=== PATIENT | female | born 1950 | race Caucasian/White ===

== ENCOUNTER 2023-04-10 05:11 | Emergency (ER) | payer MEDICARE, OTHER, SELFPAY ==
[2023-04-10 05:14] VITALS: BP 154/96
[2023-04-10 06:11] VITALS: BP 112/70
--- NOTE | 2023-04-10 06:54 | ED.GENMED ---
History of Present Illness
General
Chief Complaint: Bowel Problem
Source: patient
Exam Limitations: none
Time Seen by Provider: 04/10/23 06:39
Nursing documentation reviewed up to this point in time: agreed with
Travel History
Have you had any contact with someone who has COVID-19?: No
Do you have any symptoms of coronavirus? Fever > 100 degrees, chills, cough, shortness of breath, sore throat, loss of taste or smell, muscle aches, or headache?: No
History of Present Illness
History of Present Illness:
72-year-old female presents emergency department due to constipation of the past 1 to 3 days. This feels similar to when she had constipation before.
Past History
Past History
ED Past Medical History: Hypercholesterolemia, NIDDM and Other
ED Past Surgical History: Appendectomy and Tonsilectomy
Social History
Tobacco: Non-smoker
Alcohol: None
Drug: None
Personal: Single
Living: alone
Employment: Employed
Family History
Family History: Other (Noncontributory)
Review of Systems
Review of Systems
Allergies reviewed?: Yes
All Other Systems: Not applicable
Constitutional: Reports no symptoms
EENT: Reports no symptoms
Respiratory: Reports no symptoms
Cardiac: Reports no symptoms
ABD/GI: Reports constipated
: Reports no symptoms
Musculoskeletal: Reports no symptoms
Skin: Reports no symptoms
Neurological: Reports no symptoms
Endocrine: Reports no symptoms
Hematologic/Lymphatic: Reports no symptoms
Psychiatric: Reports no symptoms
Phy Exam
Physical Exam
Physical Exam:
Physical Exam
General: no apparent distress, not acutely ill
Neck: supple. no meningeal signs. normal posterior pharynx
Heart: s1/s2 regular rate and rhythm, no murmur. equal radial
pulses.
HEENT: Pupils equal round reactive to light, EOMI
Lungs: no acute respiratory distress. clear bilaterally
Abdomen: normal bowel sounds. not tender. no CVAT, rectal exam fecal impaction
Neuro: alert and oriented. no focal neurological deficits
Skin: no rash
Psychiatric: well kept. interactive and cooperative
Extremities: no edema. no calf tenderness. negative homans. good distal pulses
Course
Orders/Labs/Results
Orders:
Orders
04/10/23 07:39
Magnesium Citrate [Citroma] 300 ml PO ONCE ONE
04/10/23 09:03
Acetaminophen [Tylenol] 650 mg .ROUTE .STK-MED ONE
04/10/23 09:05
Acetaminophen [Tylenol] 650 mg PO NOW STA
Vital Signs
Initial and Last Documented VS:
Initial Vital Signs
Temp Pulse Resp BP Pulse Ox
98 F 94 18 154/96 94
04/10/23 05:14 04/10/23 05:14 04/10/23 05:14 04/10/23 05:14 04/10/23 05:14
Last Documented Vital Signs
Temp Pulse Resp BP Pulse Ox
98 F 94 18 138/90 93
04/10/23 05:14 04/10/23 05:14 04/10/23 05:14 04/10/23 08:00 04/10/23 08:00
MDM/Problems Addressed
Differential Diagnosis Includes:
Bowel obstruction, fecal impaction
MDM/Problems Addressed:
72-year-old female with fecal impaction. Improved after disimpaction.
*Pulse Oximetry
Patient hypoxic: no
*EKG
Interpreted by ED Provider?: NA
*Lion Trainer Interpretation
Rate: Lion Trainer- N/A
*Critical Care Note
Total Time (30-74mins, 75-104mins- exclusive of procedures): Not Applicable
Data Reviewed
Further Testing Considered But Not Given:
Abdominal x-ray not indicated
ED Attending Note
-
Portions of this chart may have been created with voice recognition software.� Occasional wrong word or��sound alike� substitutions may have occurred due to the inherent limitations of voice recognition software.
Discharge Plan
Departure
Patient Disposition: Home (Routine Discharge)
Date of Disposition: 04/10/23
Time of Disposition: 09:41
Patient with high blood pressure during this ER visit?: Yes
Condition: Good
Discharge Problem:
Fecal impaction
Instructions: Fecal Impaction (DC), BLOOD PRESSURE
Prescriptions:
No Action
labetalol 200 MG tablet
100 mg PO BID
simvastatin 20 MG tablet
20 mg PO HS
insulin glargine [Lantus Solostar U-100 Insulin] 100 unit/mL (3 mL) Insulin Pen
30 unit SC HS
insulin aspart U-100 [Novolog FlexPen U-100 Insulin] 100 unit/mL (3 mL) Insulin Pen
14 unit SC MEALS
multivitamin Tablet
2 tab PO DAILY
aspirin 81 mg Tablet,Delayed Release (Dr/Ec)
81 mg PO HS
acetaminophen 500 mg Tablet
1,000 mg PO Q6H PRN (Reason: pain)
cefuroxime axetil 500 mg Tablet
500 mg PO BID
Patient Comments:
last day 12/14/22
cholecalciferol (vitamin D3) [Vitamin D3] 25 mcg (1,000 unit) Capsule
50 mcg PO DAILY
coenzyme Q10 [CoQ-10] 100 mg Capsule
200 mg PO DAILY
polyethylene glycol 3350 [Miralax] 17 gram/dose Powder
17 g PO DAILY
fluticasone propionate 50 mcg/actuation [place],Suspension
2 spray INTRANASAL BID
carboxymethylcellulose sodium [Refresh Plus] 0.5 % Dropperette
2 drp BOTH EYES TIDPRN PRN (Reason: dry eyes)
Referrals:
Geri Ramirez MD [Family Provider] - Call in 1-3 days for appt
Interventions
Interventions:
*Risk Screen - Suicide Last Done: 04/10/23 05:14
*General Assessment Last Done: 04/10/23 06:17
*Neglect/Abuse Screening Last Done: 04/10/23 05:14
ED- Fall Risk Assessment Last Done: 04/10/23 06:17
*ED COVID-19 Vaccine History Last Done: 04/10/23 06:17
FT-Rvnsua-Xadcdseubx Assessment Last Done: 04/10/23 06:17
[2023-04-10 07:10] VITALS: BP 145/83
[2023-04-10 08:00] VITALS: BP 138/90
[2023-04-10] MEDS: TYLENOL 650 MG PO (09:05)
[2023-04-10] MEDS: CITROMA 300 ML PO (10:26)
== END 2023-04-10 10:37 | disposition home or self-care (01) ==
LOC: EMR 05:11
PROVIDERS: EMERGENCY PHYSICIAN Emergency Medicine; FAMILY PHYSICIAN Internal Medicine
DX: K56.41 Fecal impaction (principal); E11.9 Type 2 diabetes mellitus without complications
CPT/HCPCS: 99283

== ENCOUNTER 2023-06-26 16:58 | Emergency (ER) | payer MEDICARE, OTHER, SELFPAY ==
[2023-06-26 17:01] VITALS: BP 166/94
[2023-06-26 17:07] LABS: Glucose - Point of Care 147 mg/dl (70-99)
[2023-06-26 17:58] VITALS: BP 150/72
[2023-06-26 18:08] VITALS: BMI 41.9
[2023-06-26 18:20] LABS: % Basophils 0.5 % (0-2); % Eosinophils 0.9 % (0-6); % Immature Granulocytes 0.7 % (0-0.5); % Lymphocytes 11.8 % (20.5-51.1); % Monocytes 8.7 % (1.7-9.3); % Neutrophils 77.4 % (42.2-75.2); Absolute Eosinophils 0.1 10^3/uL (0-0.7); Absolute Immature Granulocytes 0.1 10^3/uL (0-0.05); Absolute Monocytes 0.7 10^3/uL (0.1-0.6); Absolute Neutrophils 6.2 10^3/uL (1.4-6.5); Hematocrit 39.8 % (37.0-47.0); Mean Corp Hgb Conc. 32.7 g/dL (33.0-37.0); Mean Corpuscular Hgb 27.7 pg (27.0-31.0); Mean Corpuscular Volume 84.9 fL (81.0-99.0); Nucleated Red Blood Cells % 0 %; Platelet Count 271 10^3/uL (130-400); Red Blood Cell Count 4.69 10^6/uL (4.20-5.40); Red Cell Dist. Width 14.7 % (11.5-14.5)
--- NOTE | 2023-06-26 18:20 | ED.GENMED ---
History of Present Illness
General
Chief Complaint: Breathing Problem
Source: patient
Exam Limitations: none
Time Seen by Provider: 06/26/23 18:04
Travel History
Have you had any contact with someone who has COVID-19?: No
Do you have any symptoms of coronavirus? Fever > 100 degrees, chills, cough, shortness of breath, sore throat, loss of taste or smell, muscle aches, or headache?: No
History of Present Illness
History of Present Illness:
73-year-old female presents from home where she lives by herself in her apartment with complaints of generalized weakness. She had onset of shortness of breath. She had to crawl to her neighbors to get help. She is quite a difficult historian as
she is just directions of thought quite frequently. She denies headache chest pain shortness of breath. She denies any chills. She does note she thinks may be 2 days ago she had a COVID booster. She denies any swelling of the legs. She is an
insulin-dependent diabetic. She checked her blood sugar at the onset of her symptoms today which was 167.
Past History
Past History
ED Past Medical History: Hypercholesterolemia, NIDDM and Other
ED Past Surgical History: Appendectomy and Tonsilectomy
Social History
Tobacco: Non-smoker
Alcohol: None
Drug: None
Personal: Single
Living: alone
Employment: Employed
Family History
Family History: Other (Noncontributory)
Phy Exam
Physical Exam
Physical Exam:
General: Well-appearing female no acute respiratory distress
HEENT: Normocephalic atraumatic
Heart: Regular rate and rhythm no murmurs
Lungs: Clear to auscultation bilaterally no wheezing
Abdomen is soft nontender nondistended no guarding rebound normal bowel sounds
Extremities: No cyanosis or edema
Skin: Warm no rash
Neurologic: Alert and oriented x 3 no facial asymmetry or slurred
Scores
Heart Failure Risk
Heart Failure Risk Score: Not Applicable
Course
Orders/Labs/Results
Orders:
Orders
06/26/23 18:06
Complete Blood Count/With Diff Urgent
Comprehensive Metabolic Panel Urgent
06/26/23 18:19
CR Chest - 2 Views Urgent
Comment:
Reason For Exam: trouble breathing
06/26/23 18:29
COVID-19 Antigen Urgent
Source: Nasal Swab
06/26/23 19:24
Urinalysis Reflex To Culture Urgent
Date Specimen was Collected: 06/26/23
Time Specimen was Collected: 19:23
Urine Microscopic Reflex Cult Urgent
Abnormal Lab Results
06/26/23 06/26/23 06/26/23
17:04 18:06 19:24
MCHC 32.7 L g/dL
(33.0-37.0)
RDW 14.7 H %
(11.5-14.5)
Abs Immat Gran (auto) 0.1 H 10^3/uL
(0-0.05)
Absolute Lymphs (auto) 1.0 L 10^3/uL
(1.2-3.4)
Absolute Monos (auto) 0.7 H 10^3/uL
(0.1-0.6)
Immature Gran % 0.7 H %
(0-0.5)
Neutrophils % 77.4 H %
(42.2-75.2)
Lymphocytes % 11.8 L %
(20.5-51.1)
BUN 27 H mg/dl
(7-17)
Glucose 137 H mg/dl
(70-99)
Leukocyte Esterase Rfl Trace A
(Negative)
Urine Bacteria (Reflex) Few A
(Negative)
POC Glucose 147 H mg/dl
(70-99)
06/26/23 18:06
06/26/23 18:06
Vital Signs
Initial and Last Documented VS:
Initial Vital Signs
Temp Pulse Resp BP Pulse Ox
100.0 F 100 22 166/94 93
06/26/23 17:01 06/26/23 17:01 06/26/23 17:01 06/26/23 17:01 06/26/23 17:01
Last Documented Vital Signs
Temp Pulse Resp BP Pulse Ox
100.0 F 99 17 123/65 92
06/26/23 17:01 06/26/23 19:25 06/26/23 19:25 06/26/23 20:26 06/26/23 19:21
MDM/Problems Addressed
Differential Diagnosis Includes:
Hip pain generalized weakness, episode of difficulty breathing. Temperature upon arrival here is 100.0. Fingerstick blood sugar okay. Will check chest x-ray COVID test and UA. Labs pending.
*Critical Care Note
Total Time (30-74mins, 75-104mins- exclusive of procedures): Not Applicable
Update Note
Update Note:
Patient presented with generalized weakness episode but now is back to baseline. She is alert she is ambulated to the bathroom. Labs reviewed without significant finding urinalysis negative COVID and chest x-ray negative. Patient did have COVID
booster 2 days ago this could be an immune response to the COVID booster. Recommended rest and hydration. Stable for discharge
ED Attending Note
-
Portions of this chart may have been created with voice recognition software.� Occasional wrong word or��sound alike� substitutions may have occurred due to the inherent limitations of voice recognition software.
Discharge Plan
Departure
Patient Disposition: Home (Routine Discharge)
Date of Disposition: 06/26/23
Time of Disposition: 20:51
Patient with high blood pressure during this ER visit?: No
Discharge Problem:
Weakness
Instructions: Shortness of Breath (Dyspnea) (DC)
Prescriptions:
No Action
labetalol 200 MG tablet
100 mg PO BID
simvastatin 20 MG tablet
20 mg PO HS
insulin glargine [Lantus Solostar U-100 Insulin] 100 unit/mL (3 mL) Insulin Pen
30 unit SC HS
insulin aspart U-100 [Novolog FlexPen U-100 Insulin] 100 unit/mL (3 mL) Insulin Pen
14 unit SC MEALS
multivitamin Tablet
2 tab PO DAILY
aspirin 81 mg Tablet,Delayed Release (Dr/Ec)
81 mg PO HS
acetaminophen 500 mg Tablet
1,000 mg PO Q6H PRN (Reason: pain)
cefuroxime axetil 500 mg Tablet
500 mg PO BID
Patient Comments:
last day 12/14/22
cholecalciferol (vitamin D3) [Vitamin D3] 25 mcg (1,000 unit) Capsule
50 mcg PO DAILY
coenzyme Q10 [CoQ-10] 100 mg Capsule
200 mg PO DAILY
polyethylene glycol 3350 [Miralax] 17 gram/dose Powder
17 g PO DAILY
fluticasone propionate 50 mcg/actuation [place],Suspension
2 spray INTRANASAL BID
carboxymethylcellulose sodium [Refresh Plus] 0.5 % Dropperette
2 drp BOTH EYES TIDPRN PRN (Reason: dry eyes)
Referrals:
Geri Ramirez MD [Family Provider] -
Activity Restrictions/Additional Instructions:
This could be an immune response to your COVID booster you had 2 days ago. Rest. Stay hydrated. Nothing showing up on today's workup. Return if worse
Interventions
Interventions:
*Risk Screen - Suicide Last Done: 06/26/23 18:10
*General Assessment Last Done: 06/26/23 17:01
*Neglect/Abuse Screening Last Done: 06/26/23 18:10
ED- Fall Risk Assessment Last Done: 06/26/23 18:09
*ED COVID-19 Vaccine History Last Done: 06/26/23 18:10
ED- Cardiac Assessment Last Done: 06/26/23 18:09
ED- Pulmonary Assessment Last Done: 06/26/23 18:09
Discharge Date and Time
Print Language: MALAY
[2023-06-26 18:42] LABS: ALT (SGPT) 35 U/L (0-35); AST (SGOT) 30 U/L (14-36); Albumin 4.2 g/dl (3.5-5.0); Alkaline Phosphatase 76 U/L (38-126); Blood Urea Nitrogen 27 mg/dl (7-17); Calcium 9.9 mg/dl (8.4-10.2); Carbon Dioxide 28 mmol/L (22-30); Chloride 100 mmol/L (98-107); Estimated Creatinine Clearance 67 ml/min; Glucose 137 mg/dl (70-99); Potassium 4.8 mmol/L (3.5-5.1); Sodium 135 mmol/L (135-145); Total Bilirubin 0.8 mg/dl (0.2-1.3); Total Protein 6.8 g/dl (6.3-8.2); eGFR > 60.00
[2023-06-26 19:00] VITALS: BP 94/78
[2023-06-26 19:01] LABS: COVID-19 Antigen Negative (Negative)
[2023-06-26 19:37] LABS: Urine Albumin Negative (Neg - Trace); Urine Bilirubin Negative (Negative); Urine Character Clear (Clear); Urine Color Straw; Urine Glucose Negative (Negative); Urine Ketone Negative (Negative); Urine Leukocyte Trace (Negative); Urine Nitrite Negative (Negative); Urine Occult Blood Negative (Negative); Urine Urobilinogen Negative (Neg - 1+)
[2023-06-26 19:51] LABS: Urine Squamous Cell 0-2 /LPF (Few)
[2023-06-26 19:52] LABS: Urine Bacteria Few (Negative); Urine Red Blood Cell 0-2 /HPF (0-2); Urine White Cell 0-2 /HPF (0-5)
[2023-06-26 20:26] VITALS: BP 123/65
[2023-06-26 20:57] VITALS: BP 123/65
== END 2023-06-26 20:58 | disposition home or self-care (01) ==
LOC: EMR 16:58
PROVIDERS: Emergency Medicine; Physician Assistant; EMERGENCY PHYSICIAN Emergency Medicine; FAMILY PHYSICIAN Internal Medicine
DX: R53.1 Weakness (principal); R06.02 Shortness of breath; Z11.52 Encounter for screening for COVID-19; E11.9 Type 2 diabetes mellitus without complications; E78.00 Pure hypercholesterolemia, unspecified; Z79.4 Long term (current) use of insulin; Z79.82 Long term (current) use of aspirin; Z88.1 Allergy status to other antibiotic agents
CPT/HCPCS: 99283; 71046; 80053; 81003; 81015; 82962; 85025; 87811

== ENCOUNTER 2023-11-30 16:19 | Emergency (ER) | payer MEDICARE, OTHER, SELFPAY ==
[2023-11-30 16:25] LABS: Glucose - Point of Care 34 mg/dl (70-99)
--- NOTE | 2023-11-30 16:29 | ED.GENMED ---
History of Present Illness
General
Chief Complaint: Change in Mental Status
Time Seen by Provider: 11/30/23 16:29
History of Present Illness
History of Present Illness:
HPI: Details for reason for visit is somewhat unclear. Apparently a friend of hers 'dropped me off'. Upon arrival she appeared altered and blood sugar was 34. We are calling her friend Peewee Antoine, for further history. 14U Novolin
6a (took at 8a or 9a instead today and less of an interval between the noon insulin dose); 34U Lantus at night.
EXAM:
GENERAL: The patient appears generally unwell upon initial evaluation, poorly groomed
HEENT: Dry oral mucosa
CARDIOVASCULAR: No murmurs, normal heart rate, regular rhythm, No chest wall tenderness
PULMONARY: No respiratory distress, breath sounds are clear and equal
ABDOMEN: Soft with no peritoneal signs, no tenderness
NEUROLOGIC: Fair strength all extremities, no coordination deficits
PSYCHIATRIC: The patient appears confused and cannot give a reliable history
EXTREMITIES: Nontender, no edema, moves all extremities equally
SKIN: No rash, no lesions
TIME OF INITIAL ENCOUNTER: 4:30 PM
NUMBER AND COMPLEXITY OF PROBLEMS ADDRESSED AT THE ENCOUNTER
� Chronic conditions affecting care: IDDM, CHF, high blood pressure, anxiety
� Acute Exacerbation and/or Progression of Chronic Illness: This is an acute problem
� Differential Diagnosis includes: Hypoglycemia, anemia, electrolyte abnormality,
AMOUNT AND/OR COMPLEXITY OF DATA TO BE REVIEWED AND ANALYZED
� I performed an independent evaluation of and my interpretation is:
EKG:
CT:
X-rays:
Laboratory Studies: CBC unremarkable, glucose 30. Repeat glucose after D10 is 101.
Other:
� Review of other/old records: The patient was here 06/26/2023 with shortness of breath/breathing problem. However at that time her symptoms were self-limited.
� Clinical information was obtained by an independent historian:
� Prescriptions/Medications Considered but not given:
� Further testing considered but not performed:
RISK OF COMPLICATIONS AND/OR MORBIDITY OR MORTALITY OF PATIENT MANAGEMENT
� Social determinants of health affecting care: Lives at home
� Discussion with other providers:
� Escalation of care including admission/observation vs risk of discharge considered: Initial blood sugar was 34. She was started on D10 and is rapidly improving. Repeat blood sugar at 4:54 PM is 101. Blood sugar at 6:12 PM
was 205. On reassessment, she has excellent mental status and clearly, what happened. She now tells me that she took the Lantus dosing very late at around 2:30 in the morning. She seems to have excellent insight and judgment at this time.
Past History
Past History
ED Past Medical History: Hypercholesterolemia, NIDDM and Other
ED Past Surgical History: Appendectomy and Tonsilectomy
Social History
Tobacco: Non-smoker
Alcohol: None
Drug: None
Personal: Single
Living: alone
Employment: Employed
Family History
Family History: Other (Noncontributory)
Phy Exam
Physical Exam
Physical Exam:
See HPI
Course
Orders/Labs/Results
Orders:
Orders
11/30/23 16:34
Complete Blood Count/With Diff Urgent
Comprehensive Metabolic Panel Urgent
Magnesium Urgent
11/30/23 17:00
Dextrose 10%/Water 500 ml [D10w] 500 ml IV 250 mls/hr
Abnormal Lab Results
11/30/23 11/30/23 11/30/23
16:23 16:34 16:54
MCHC 32.5 L g/dL
(33.0-37.0)
Abs Immat Gran (auto) 0.1 H 10^3/uL
(0-0.05)
Absolute Monos (auto) 0.9 H 10^3/uL
(0.1-0.6)
Immature Gran % 0.6 H %
(0-0.5)
BUN 34 H mg/dl
(7-17)
Glucose 30 L* mg/dl
(70-99)
AST 40 H U/L
(14-36)
ALT 76 H U/L
(0-35)
POC Glucose 34 L* mg/dl 101 H mg/dl
(70-99) (70-99)
11/30/23
18:12
MCHC
Abs Immat Gran (auto)
Absolute Monos (auto)
Immature Gran %
BUN
Glucose
AST
ALT
POC Glucose 205 H mg/dl
(70-99)
11/30/23 16:34
11/30/23 16:34
Vital Signs
Initial and Last Documented VS:
Initial Vital Signs
Pulse Resp Pulse Ox
80 20 92
11/30/23 16:34 11/30/23 16:34 11/30/23 16:34
Last Documented Vital Signs
Pulse Resp BP Pulse Ox
77 19 121/53 93
11/30/23 18:00 11/30/23 18:00 11/30/23 18:00 11/30/23 18:00
*Critical Care Note
Total Time (30-74mins, 75-104mins- exclusive of procedures): Not Applicable
ED Attending Note
-
Portions of this chart may have been created with voice recognition software.� Occasional wrong word or��sound alike� substitutions may have occurred due to the inherent limitations of voice recognition software.
Discharge Plan
Departure
Prescriptions:
No Action
labetalol 200 MG tablet
100 mg PO BID
simvastatin 20 MG tablet
20 mg PO HS
insulin glargine [Lantus Solostar U-100 Insulin] 100 unit/mL (3 mL) Insulin Pen
30 unit SC HS
insulin aspart U-100 [Novolog FlexPen U-100 Insulin] 100 unit/mL (3 mL) Insulin Pen
14 unit SC MEALS
multivitamin Tablet
2 tab PO DAILY
aspirin 81 mg Tablet,Delayed Release (Dr/Ec)
81 mg PO HS
acetaminophen 500 mg Tablet
1,000 mg PO Q6H PRN (Reason: pain)
cefuroxime axetil 500 mg Tablet
500 mg PO BID
Patient Comments:
last day 12/14/22
cholecalciferol (vitamin D3) [Vitamin D3] 25 mcg (1,000 unit) Capsule
50 mcg PO DAILY
coenzyme Q10 [CoQ-10] 100 mg Capsule
200 mg PO DAILY
polyethylene glycol 3350 [Miralax] 17 gram/dose Powder
17 g PO DAILY
fluticasone propionate 50 mcg/actuation [place],Suspension
2 spray INTRANASAL BID
carboxymethylcellulose sodium [Refresh Plus] 0.5 % Dropperette
2 drp BOTH EYES TIDPRN PRN (Reason: dry eyes)
Referrals:
Geri Ramirez MD [Family Provider] -
Interventions
Interventions:
*Risk Screen - Suicide Last Done: 11/30/23 17:35
*General Assessment Last Done: 11/30/23 17:35
*Neglect/Abuse Screening Last Done: 11/30/23 17:35
ED- Fall Risk Assessment Last Done: 11/30/23 17:35
*ED COVID-19 Vaccine History Last Done: 11/30/23 17:35
ED- Pulmonary Assessment Last Done: 11/30/23 16:59
ED- Neurological Assessment Last Done: 11/30/23 16:59
ED- Cardiac Assessment Last Done: 11/30/23 16:59
ED Swallowing Screen Last Done: 11/30/23 17:03
Discharge Date and Time
Print Language: SINHALA
[2023-11-30 16:35] VITALS: BP 109/57
[2023-11-30] MEDS: D10W 500 IV (16:37)
[2023-11-30 16:43] LABS: % Basophils 0.4 % (0-2); % Eosinophils 1.6 % (0-6); % Immature Granulocytes 0.6 % (0-0.5); % Lymphocytes 29.9 % (20.5-51.1); % Monocytes 8.5 % (1.7-9.3); Absolute Eosinophils 0.2 10^3/uL (0-0.7); Absolute Immature Granulocytes 0.1 10^3/uL (0-0.05); Absolute Lymphocytes 3.2 10^3/uL (1.2-3.4); Absolute Monocytes 0.9 10^3/uL (0.1-0.6); Absolute Neutrophils 6.3 10^3/uL (1.4-6.5); Hematocrit 44.6 % (37.0-47.0); Hemoglobin 14.5 g/dL (12.0-16.0); Mean Corp Hgb Conc. 32.5 g/dL (33.0-37.0); Mean Corpuscular Hgb 28.5 pg (27.0-31.0); Mean Corpuscular Volume 87.6 fL (81.0-99.0); Mean Platelet Volume 9.1 fL (7.4-10.4); Nucleated Red Blood Cells % 0 %; Platelet Count 306 10^3/uL (130-400); Red Blood Cell Count 5.09 10^6/uL (4.20-5.40); Red Cell Dist. Width 13.9 % (11.5-14.5); White Blood Cell Count 10.6 10^3/uL (4.8-10.8)
[2023-11-30 16:56] LABS: Glucose - Point of Care 101 mg/dl (70-99)
[2023-11-30 17:00] VITALS: BP 121/63
[2023-11-30 17:16] LABS: ALT (SGPT) 76 U/L (0-35); AST (SGOT) 40 U/L (14-36); Albumin 4.6 g/dl (3.5-5.0); Alkaline Phosphatase 52 U/L (38-126); Blood Urea Nitrogen 34 mg/dl (7-17); Calcium 10.2 mg/dl (8.4-10.2); Carbon Dioxide 28 mmol/L (22-30); Chloride 103 mmol/L (98-107); Glucose 30 mg/dl (70-99); Magnesium 2.1 mg/dl (1.6-2.3); Potassium 3.9 mmol/L (3.5-5.1); Sodium 141 mmol/L (135-145); Total Bilirubin 0.7 mg/dl (0.2-1.3); Total Protein 6.9 g/dl (6.3-8.2); eGFR > 60.00
[2023-11-30 18:00] VITALS: BP 121/53
[2023-11-30 18:14] LABS: Glucose - Point of Care 205 mg/dl (70-99)
[2023-11-30 18:42] VITALS: BP 126/56
[2023-11-30] MEDS: D10W IV (19:04)
== END 2023-11-30 19:19 | disposition home or self-care (01) ==
LOC: EMR 16:19
PROVIDERS: EMERGENCY PHYSICIAN Emergency Medicine; FAMILY PHYSICIAN Internal Medicine
DX: E11.649 Type 2 diabetes mellitus with hypoglycemia without coma (principal); I11.0 Hypertensive heart disease with heart failure; I50.9 Heart failure, unspecified; F41.9 Anxiety disorder, unspecified; E78.00 Pure hypercholesterolemia, unspecified; Z79.4 Long term (current) use of insulin; Z79.82 Long term (current) use of aspirin; Z88.1 Allergy status to other antibiotic agents
CPT/HCPCS: 99283; 80053; 82962; 83735; 85025

== ENCOUNTER → 2023-12-30 13:23 | Outpatient (REF) | payer MEDICARE, OTHER, SELFPAY ==
[2023-12-30 13:37] LABS: % Basophils 0.4 % (0-2); % Eosinophils 1.4 % (0-6); % Immature Granulocytes 0.4 % (0-0.5); % Lymphocytes 19.2 % (20.5-51.1); % Monocytes 8.1 % (1.7-9.3); % Neutrophils 70.5 % (42.2-75.2); Absolute Eosinophils 0.1 10^3/uL (0-0.7); Absolute Lymphocytes 1.5 10^3/uL (1.2-3.4); Absolute Monocytes 0.6 10^3/uL (0.1-0.6); Absolute Neutrophils 5.4 10^3/uL (1.4-6.5); Hematocrit 42.6 % (37.0-47.0); Hemoglobin 13.6 g/dL (12.0-16.0); Mean Corp Hgb Conc. 31.9 g/dL (33.0-37.0); Mean Corpuscular Hgb 29.6 pg (27.0-31.0); Mean Corpuscular Volume 92.6 fL (81.0-99.0); Mean Platelet Volume 10.4 fL (7.4-10.4); Nucleated Red Blood Cells % 0 %; Platelet Count 258 10^3/uL (130-400); Red Cell Dist. Width 13.9 % (11.5-14.5); White Blood Cell Count 7.7 10^3/uL (4.8-10.8)
[2023-12-30 13:51] LABS: ALT (SGPT) 42 U/L (0-35); AST (SGOT) 39 U/L (14-36); Albumin 4.4 g/dl (3.5-5.0); Alkaline Phosphatase 43 U/L (38-126); Blood Urea Nitrogen 22 mg/dl (7-17); Calcium 9.9 mg/dl (8.4-10.2); Carbon Dioxide 30 mmol/L (22-30); Chloride 102 mmol/L (98-107); Glucose 112 mg/dl (70-99); HDL Cholesterol 53 mg/dl; LDL Cholesterol, Calculated 62 mg/dl; Potassium 4.8 mmol/L (3.5-5.1); Sodium 143 mmol/L (135-145); Total Bilirubin 0.5 mg/dl (0.2-1.3); Total Cholesterol 136 mg/dl (50-199); Total Protein 6.6 g/dl (6.3-8.2); Triglyceride 108 mg/dl (10-149); Very Low Density Lipoprotein 21 mg/dl (0-30); eGFR > 60.00
[2023-12-30 14:02] LABS: Glycohemoglobin (HgbA1c) 6.7 % (4.0-5.6)
== END ==
LOC: CLAB 13:23
PROVIDERS: ATTENDING PHYSICIAN Internal Medicine; REFERRING PHYSICIAN Nurse Practitioner Adult Health
DX: E11.649 Type 2 diabetes mellitus with hypoglycemia without coma (principal); I11.0 Hypertensive heart disease with heart failure; I50.9 Heart failure, unspecified
CPT/HCPCS: 80053; 80061; 83036; 85025

== ENCOUNTER 2024-01-25 06:12 | Emergency (ER) | payer MEDICARE, OTHER, SELFPAY ==
[2024-01-25] VITALS (8 sets, daily range): BP systolic 119–155; BP diastolic 65–86; BMI 37.1
[2024-01-25 06:18] LABS: Glucose - Point of Care 113 mg/dl (70-99)
[2024-01-25 06:49] LABS: % Basophils 0.6 % (0-2); % Eosinophils 3.8 % (0-6); % Immature Granulocytes 0.8 % (0-0.5); % Lymphocytes 23.8 % (20.5-51.1); % Monocytes 9.7 % (1.7-9.3); % Neutrophils 61.3 % (42.2-75.2); Absolute Eosinophils 0.3 10^3/uL (0-0.7); Absolute Immature Granulocytes 0.1 10^3/uL (0-0.05); Absolute Lymphocytes 1.6 10^3/uL (1.2-3.4); Absolute Monocytes 0.6 10^3/uL (0.1-0.6); Absolute Neutrophils 4.1 10^3/uL (1.4-6.5); Hematocrit 39.6 % (37.0-47.0); Hemoglobin 12.7 g/dL (12.0-16.0); Mean Corp Hgb Conc. 32.1 g/dL (33.0-37.0); Mean Corpuscular Hgb 29.1 pg (27.0-31.0); Mean Corpuscular Volume 90.8 fL (81.0-99.0); Mean Platelet Volume 8.9 fL (7.4-10.4); Nucleated Red Blood Cells % 0 %; Platelet Count 274 10^3/uL (130-400); Red Blood Cell Count 4.36 10^6/uL (4.20-5.40); Red Cell Dist. Width 13.6 % (11.5-14.5); White Blood Cell Count 6.6 10^3/uL (4.8-10.8)
[2024-01-25 07:10] LABS: ALT (SGPT) 38 U/L (0-35); AST (SGOT) 34 U/L (14-36); Albumin 3.8 g/dl (3.5-5.0); Alkaline Phosphatase 64 U/L (38-126); Blood Urea Nitrogen 29 mg/dl (7-17); Calcium 9.4 mg/dl (8.4-10.2); Carbon Dioxide 30 mmol/L (22-30); Chloride 104 mmol/L (98-107); Estimated Creatinine Clearance 73 ml/min; Glucose 128 mg/dl (70-99); Potassium 4.4 mmol/L (3.5-5.1); Sodium 141 mmol/L (135-145); Total Bilirubin 0.4 mg/dl (0.2-1.3); Total Protein 6.1 g/dl (6.3-8.2); eGFR > 60.00
--- NOTE | 2024-01-25 07:47 | ED.GENMED ---
History of Present Illness
General
Chief Complaint: Blood Sugar Problem
Source: patient
Exam Limitations: none
Time Seen by Provider: 01/25/24 07:03
Nursing documentation reviewed up to this point in time: agreed with
History of Present Illness
History of Present Illness:
73-year-old female insulin pendant diabetic awoke this morning shaking her to her dextrose device beeping, she checked her sugar it said it was 140-shell, had some water called her neighbor brought to the ER here she is feeling better, has not had her
insulin yet this morning, no nausea vomiting fever no chills no chest pain or shortness of breath she wonders if her machine device may not be working correctly
Past History
Past History
ED Past Medical History: Hypercholesterolemia, NIDDM and Other
ED Past Surgical History: Appendectomy and Tonsilectomy
Social History
Tobacco: Non-smoker
Alcohol: None
Drug: None
Personal: Single
Living: alone
Employment: Employed
Family History
Family History: Other (Noncontributory)
Review of Systems
Review of Systems
All Other Systems: Not applicable
Constitutional: Reports other (Shaky)
EENT: Reports no symptoms
Respiratory: Reports no symptoms
Cardiac: Reports no symptoms
ABD/GI: Reports no symptoms; Denies abdominal pain or vomiting
Endocrine: Denies polyuria, polydipsia or temp intolerance
Phy Exam
Physical Exam
Physical Exam:
Physical Exam
General: no apparent distress, not acutely ill
Neck: No jaundice
Heart: Regular
Lungs: no acute respiratory distress. No wheezing
Abdomen: Nontender
Neuro: alert and oriented. no focal neurological deficits
Skin: no rash
Psychiatric: cooperative
Extremities: Minimal pain over the right ankle no edema no cellulitic change
Course
Orders/Labs/Results
Orders:
Orders
01/25/24 06:18
Accucheck Once [Bedside Glucose Monitoring-ONCE] As Directed
01/25/24 06:33
ECG [Electrocardiogram (*1)] Urgent
Reason for Study: Other
Other Reason for Exam: weakness
Cardiology Consult: Unknown
EKG- Treatment ONCE
01/25/24 06:43
Complete Blood Count/With Diff Urgent
Comprehensive Metabolic Panel Urgent
01/25/24 08:37
Acetaminophen [Tylenol] 650 mg PO NOW STA
Ankle, Right 3 view CR [CR Ankle - Right Min 3 Views *] Urgent
Comment:
Reason For Exam: pain
Physical Therapy Consult [Pt Eval And Treat] Urgent
Activity Level: Ambulate
01/25/24 09:09
Urinalysis Reflex To Culture Urgent
Date Specimen was Collected: 01/25/24
Time Specimen was Collected: 09:08
01/25/24 09:43
Insulin Aspart [NOVOLOG vial] 14 units SC NOW STA
Abnormal Lab Results
01/25/24 01/25/24 01/25/24
06:17 06:43 08:39
MCHC 32.1 L g/dL
(33.0-37.0)
Abs Immat Gran (auto) 0.1 H 10^3/uL
(0-0.05)
Immature Gran % 0.8 H %
(0-0.5)
Monocytes % 9.7 H %
(1.7-9.3)
BUN 29 H mg/dl
(7-17)
Glucose 128 H mg/dl
(70-99)
ALT 38 H U/L
(0-35)
Total Protein 6.1 L g/dl
(6.3-8.2)
POC Glucose 113 H mg/dl 108 H mg/dl
(70-99) (70-99)
01/25/24 06:43
11/27/24 06:43
Vital Signs
Initial and Last Documented VS:
Initial Vital Signs
Temp Pulse Resp BP Pulse Ox
98 F 86 26 155/86 94
01/25/24 06:15 01/25/24 06:15 01/25/24 06:15 01/25/24 06:15 01/25/24 06:15
Last Documented Vital Signs
Temp Pulse Resp BP Pulse Ox
98 F 84 20 119/65 92
01/25/24 06:15 01/25/24 09:15 01/25/24 09:15 01/25/24 09:04 01/25/24 07:30
MDM/Problems Addressed
Differential Diagnosis Includes:
Hypoglycemia electrolyte abnormality, malfunctioning Accu-Chek machine arrhythmia
MDM/Problems Addressed:
Shakiness
Chronic conditions affecting care: DM
*Critical Care Note
Total Time (30-74mins, 75-104mins- exclusive of procedures): Not Applicable
Update Note
Update Note:
Update etiology of the beeping not entirely clear is not hypoglycemic does have some ankle pain, will check an x-ray try Tylenol have PT case management severe she lives alone
X-ray pending, ankles are chronic issue, patient does have home services will ask PT to see her, also case management for [facility] etc.
Update reviewed with physical therapy reviewed with field nurse case manager patient is can be discharged with [facility]
ED Attending Note
-
Portions of this chart may have been created with voice recognition software.� Occasional wrong word or��sound alike� substitutions may have occurred due to the inherent limitations of voice recognition software.
Discharge Plan
Departure
Patient Disposition: Home (Routine Discharge)
Date of Disposition: 01/25/24
Time of Disposition: 10:37
Patient with high blood pressure during this ER visit?: No
Condition: Good
Covid-19: Not Applicable
Discharge Problem:
Musculoskeletal pain
Instructions: Type 2 Diabetes (DC)
Prescriptions:
No Action
labetalol 200 MG tablet
100 mg PO BID
simvastatin 20 MG tablet
20 mg PO HS
insulin glargine [Lantus Solostar U-100 Insulin] 100 unit/mL (3 mL) Insulin Pen
30 unit SC HS
insulin aspart U-100 [Novolog FlexPen U-100 Insulin] 100 unit/mL (3 mL) Insulin Pen
14 unit SC MEALS
multivitamin Tablet
2 tab PO DAILY
aspirin 81 mg Tablet,Delayed Release (Dr/Ec)
81 mg PO HS
acetaminophen 500 mg Tablet
1,000 mg PO Q6H PRN (Reason: pain)
cefuroxime axetil 500 mg Tablet
500 mg PO BID
Patient Comments:
last day 12/14/22
cholecalciferol (vitamin D3) [Vitamin D3] 25 mcg (1,000 unit) Capsule
50 mcg PO DAILY
coenzyme Q10 [CoQ-10] 100 mg Capsule
200 mg PO DAILY
polyethylene glycol 3350 [Miralax] 17 gram/dose Powder
17 g PO DAILY
fluticasone propionate 50 mcg/actuation [place],Suspension
2 spray INTRANASAL BID
carboxymethylcellulose sodium [Refresh Plus] 0.5 % Dropperette
2 drp BOTH EYES TIDPRN PRN (Reason: dry eyes)
Referrals:
Geri Ramirez MD [Family Provider] - Next open appointment
Interventions
Interventions:
*Risk Screen - Suicide Last Done: 01/25/24 06:15
*General Assessment Last Done: 01/25/24 06:46
*Neglect/Abuse Screening Last Done: 01/25/24 06:15
*ED COVID-19 Vaccine History Last Done: 01/25/24 06:46
ED- Neurological Assessment Last Done: 01/25/24 06:46
Discharge Date and Time
Print Language: [place]ET[place]ESE
[2024-01-25 08:41] LABS: Glucose - Point of Care 108 mg/dl (70-99)
[2024-01-25] MEDS: TYLENOL 650 MG PO (08:50)
[2024-01-25 09:22] LABS: Urine Albumin Negative (Neg - Trace); Urine Bilirubin Negative (Negative); Urine Character Clear (Clear); Urine Color Yellow; Urine Glucose Negative (Negative); Urine Ketone Negative (Negative); Urine Leukocyte Negative (Negative); Urine Nitrite Negative (Negative); Urine Occult Blood Negative (Negative); Urine Specific Gravity 1.005 (<1.030); Urine Urobilinogen Negative (Neg - 1+)
[2024-01-25] MEDS: NOVOLOG vial 14 UNITS SC (10:09)
--- NOTE | 2024-01-25 10:42 | CM ---
Addendum entered by Soniya Rosas 01/25/24 13:41:
Late entry: Bedside RN concerned about patient taking Uber home. Patient was on with sister. CM explained to patient and sister that it may be safer for patient to go home in a w/c van, but they would need to pay for it. Sister said she was ok with
paying for the w/c van over the phone. I confirmed with Eduard, flight/transport nurse that the w/c van can be paid over the phone.
The above information was sent to bedside RN via TT.
Addendum entered by Soniya Rosas 01/25/24 11:06:
Also updated [facility] liaison, Geri about patient's hospital stay and that doctor would like her to be seen.
Addendum entered by Soniya Rosas 01/25/24 10:56:
Patient shared that she came into the hospital due to having tremors. She stated that she was able to walk, but was scared because of the tremors. She shared that she has many resources at home, including [facility] with PT/OT/SW and CM.
Patient said she'd be ok with STR. She shared she had medicare. Patient was informed her stay would be out of pocket, unless she had a recent 3 night stay in a hospital. Patient said she did not, and would not be able to afford rehab.
Above information shared with attending physician.
Original Note:
CM consult placed.
--- NOTE | 2024-01-25 11:13 | VNURNOTE ---
Chart reviewed. Patient is current with [facility]. [facility] office aware pt going home today from ER.
== END 2024-01-25 12:35 | disposition home or self-care (01) ==
LOC: EMR 06:12
PROVIDERS: EMERGENCY PHYSICIAN Emergency Medicine; FAMILY PHYSICIAN Internal Medicine
DX: M79.18 Myalgia, other site (principal); M25.571 Pain in right ankle and joints of right foot; R53.1 Weakness; M54.9 Dorsalgia, unspecified; E78.00 Pure hypercholesterolemia, unspecified; E11.9 Type 2 diabetes mellitus without complications; I11.0 Hypertensive heart disease with heart failure; I50.9 Heart failure, unspecified; M19.90 Unspecified osteoarthritis, unspecified site; F41.9 Anxiety disorder, unspecified; Z79.82 Long term (current) use of aspirin; Z88.1 Allergy status to other antibiotic agents
CPT/HCPCS: 99284; 96372; 73610; 80053; 81003; 82962; 85025; 93005

== ENCOUNTER 2024-03-18 02:54 | Emergency (ER) | payer MEDICARE, OTHER, SELFPAY ==
[2024-03-18 03:11] VITALS: BP 116/68
[2024-03-18 03:46] VITALS: BMI 37.7
--- NOTE | 2024-03-18 05:32 | ED.GENMED ---
History of Present Illness
<DO Margarita Bowles Filed: 03/18/24 07:01>
General
Chief Complaint: Head Injury
Source: patient and family
Exam Limitations: none
Time Seen by Provider: 03/18/24 04:08
History of Present Illness
History of Present Illness:
Pleasant 73-year-old female presents to the emergency department after a fall. She states that she was adjusting her glucometer and she backed up and tripped over something. She fell backwards and hit her head. She denies loss of consciousness
and she is not on any blood thinners. She says she has left elbow and left thigh pain but no other injury. She states that she has full range of motion in the hip and the leg as well as in the arm.
Past History
<DO Margarita Bowles Filed: 03/18/24 07:01>
Past History
ED Past Medical History: Hypercholesterolemia, NIDDM and Other
ED Past Surgical History: Appendectomy and Tonsilectomy
Social History
Tobacco: Non-smoker
Alcohol: None
Drug: None
Personal: Single
Living: alone
Employment: Employed
Family History
Family History: Other (Noncontributory)
Review of Systems
<DO Margarita Bowles Filed: 03/18/24 07:01>
Review of Systems
All Other Systems: Not applicable
Constitutional: Reports no symptoms
EENT: Reports no symptoms
Respiratory: Reports no symptoms
Cardiac: Reports no symptoms
ABD/GI: Reports no symptoms
: Reports no symptoms
Musculoskeletal: Reports no symptoms
Skin: Reports other (Superficial abrasion to the left lateral elbow. Full range of motion in the elbow. Good distal pulses. No swelling appreciated.)
Neurological: Reports no symptoms
Endocrine: Reports no symptoms
Hematologic/Lymphatic: Reports no symptoms
Psychiatric: Reports no symptoms
Phy Exam
<Ramon Avendaño DO - Last Filed: 03/18/24 07:01>
General Physical Exam
General Presentation: well appearing and no apparent distress
General age: appears stated age
General Skin: warm and dry
General Habitus: normal
General Mental: alert
General Hydration: appears well hydrated
ENT Exam
ENT Exam: EOMI, pharynx normal, neck supple and normocephalic
Eye Exam
Eye Exam: PERRL, cornea clear and conjunctiva normal
Cardiovascular Exam
Cardiovascular Exam: regular rate/rhythm and no edema
Pulmonary Exam
Pulmonary Exam: lungs clear, no respiratory distress, no rales, no crackles, no rhonchi, no stridor, no wheezing and no cough
Gastrointestinal Exam
Gastrointestinal Exam: normal bowel sounds, non tender, soft, no organomegaly, no pulsatile mass and non distended
Neurological Exam
Neurological Exam: alert, oriented x3, no motor deficits and speech normal
Musculoskeletal Exam
Musculoskeletal Exam: full ROM, no edema and neuro vasc intact
Skin Exam
Skin Exam: normal color and warm/dry
Psychiatric Exam
Psychiatric Exam: normal mood/affect
Course
<DO Margarita Bowles Last Filed: 03/18/24 07:01>
Orders/Labs/Results
Orders:
Orders
03/18/24 03:[address] [CT Head W/o Iv Contrast] Urgent
Comment:
Reason For Exam: fall with head strike, -loc, -thinners
03/18/24 05:39
Ambulate Patient-Treatment ONCE
03/18/24 05:46
Bedside Glucose- Treatment Q1H
IV Insert/Care/Rem.- Treatment PRN
Insulin Human Regular [Novolin R] 8 units IV NOW STA
03/18/24 06:00
0.9% Sodium Chloride 1000 ml [Nss] 1,000 ml IV 250 mls/hr
03/18/24 06:11
B-Hydroxybutyrate Urgent
Complete Blood Count/With Diff Urgent
Comprehensive Metabolic Panel Urgent
Glycohemoglobin (HgbA1c) Urgent
Urinalysis Urgent
Date Specimen was Collected: 03/18/24
Time Specimen was Collected: 06:02
Urine Microscopic Urgent
Date Specimen was Collected: 03/18/24
Time Specimen was Collected: 06:02
03/18/24 08:00
Basic Metabolic Panel Q2H
03/18/24 10:00
Basic Metabolic Panel Q2H
Abnormal Lab Results
03/18/24 03/18/24 03/18/24
05:41 05:43 06:11
MCHC 30.8 L g/dL
(33.0-37.0)
Absolute Neuts (auto) 7.4 H 10^3/uL
(1.4-6.5)
Neutrophils % 75.7 H %
(42.2-75.2)
Lymphocytes % 16.5 L %
(20.5-51.1)
BUN 37 H mg/dl
(7-17)
Glucose 131 H mg/dl
(70-99)
Hemoglobin A1c 6.6 H %
(4.0-5.6)
AST 48 H U/L
(14-36)
ALT 50 H U/L
(0-35)
Ur Leukocyte Esterase 1+ A
(Negative)
POC Glucose 464 H* mg/dl 579 H* mg/dl
(70-99) (70-99)
03/18/24 03/18/24
07:34 08:59
MCHC
Absolute Neuts (auto)
Neutrophils %
Lymphocytes %
BUN
Glucose
Hemoglobin A1c
AST
ALT
Ur Leukocyte Esterase
POC Glucose 108 H mg/dl 260 H mg/dl
(70-99) (70-99)
03/18/24 06:11
Vital Signs
Initial and Last Documented VS:
Initial Vital Signs
Temp Pulse Resp BP Pulse Ox
98.3 F 81 16 116/68 95
03/18/24 03:11 03/18/24 03:11 03/18/24 03:11 03/18/24 03:11 03/18/24 03:11
Last Documented Vital Signs
Temp Pulse Resp BP Pulse Ox
98.3 F 75 16 136/74 98
03/18/24 03:11 03/18/24 10:00 03/18/24 07:40 03/18/24 10:00 03/18/24 10:00
<Kajal Novak, DO - Last Filed: 03/18/24 14:54>
Orders/Labs/Results
Orders:
Orders
03/18/24 03:[address] [CT Head W/o Iv Contrast] Urgent
Comment:
Reason For Exam: fall with head strike, -loc, -thinners
03/18/24 05:39
Ambulate Patient-Treatment ONCE
03/18/24 05:46
Bedside Glucose- Treatment Q1H
IV Insert/Care/Rem.- Treatment PRN
Insulin Human Regular [Novolin R] 8 units IV NOW STA
03/18/24 06:00
0.9% Sodium Chloride 1000 ml [Nss] 1,000 ml IV 250 mls/hr
03/18/24 06:11
B-Hydroxybutyrate Urgent
Complete Blood Count/With Diff Urgent
Comprehensive Metabolic Panel Urgent
Glycohemoglobin (HgbA1c) Urgent
Urinalysis Urgent
Date Specimen was Collected: 03/18/24
Time Specimen was Collected: 06:02
Urine Microscopic Urgent
Date Specimen was Collected: 03/18/24
Time Specimen was Collected: 06:02
03/18/24 08:00
Basic Metabolic Panel Q2H
03/18/24 10:00
Basic Metabolic Panel Q2H
Abnormal Lab Results
03/18/24 03/18/24 03/18/24
05:41 05:43 06:11
MCHC 30.8 L g/dL
(33.0-37.0)
Absolute Neuts (auto) 7.4 H 10^3/uL
(1.4-6.5)
Neutrophils % 75.7 H %
(42.2-75.2)
Lymphocytes % 16.5 L %
(20.5-51.1)
BUN 37 H mg/dl
(7-17)
Glucose 131 H mg/dl
(70-99)
Hemoglobin A1c 6.6 H %
(4.0-5.6)
AST 48 H U/L
(14-36)
ALT 50 H U/L
(0-35)
Ur Leukocyte Esterase 1+ A
(Negative)
POC Glucose 464 H* mg/dl 579 H* mg/dl
(70-99) (70-99)
03/18/24 03/18/24
07:34 08:59
MCHC
Absolute Neuts (auto)
Neutrophils %
Lymphocytes %
BUN
Glucose
Hemoglobin A1c
AST
ALT
Ur Leukocyte Esterase
POC Glucose 108 H mg/dl 260 H mg/dl
(70-99) (70-99)
03/18/24 06:11
Vital Signs
Initial and Last Documented VS:
Initial Vital Signs
Temp Pulse Resp BP Pulse Ox
98.3 F 81 16 116/68 95
03/18/24 03:11 03/18/24 03:11 03/18/24 03:11 03/18/24 03:11 03/18/24 03:11
Last Documented Vital Signs
Temp Pulse Resp BP Pulse Ox
98.3 F 75 16 136/74 98
03/18/24 03:11 03/18/24 10:00 03/18/24 07:40 03/18/24 10:00 03/18/24 10:00
<Kajal Novak DO - Last Filed: 03/18/24 14:54>
*Critical Care Note
Total Time (30-74mins, 75-104mins- exclusive of procedures): Not Applicable
<Ramon Avendaño DO - Last Filed: 03/18/24 07:01>
Update Note
Update Note:
Upon discharge, blood sugar was checked because patient was having difficulty with her monitor at home. It read high. Discharge was temporarily reversed and lab work performed.
After lab work came back, blood sugar was noted to be significantly lower than the 2 fingersticks earlier. Patient had received 8 units of insulin. We rechecked the blood sugar and it was 81 on a new glucometer and 84 on the original glucometer
that read 464 and 579. Patient is mentating appropriately. She is drinking orange juice at this point to counteract any of the effects of the insulin. Patient to be observed in the emergency department.
Attending Sign Out Note - Kajal Novak DO
06:30 -assuming care of patient, 73-year-old female with known history of insulin-dependent diabetes presenting after a fall. Patient had been checking her glucometer, fell backward after tripping and struck her head. Patient came to the hospital
due to the fall. No significant signs of trauma on exam. Patient hemodynamically stable in the ER. CT brain negative. On discharge planning, glucose had been checked, significantly elevated, greater than 500. For this reason, plan for
laboratory analysis to ensure no signs of DKA. Patient getting fluids and insulin
<Kajal Novak DO - Last Filed: 03/18/24 14:54>
Update Note
Update Note:
Upon discharge, blood sugar was checked because patient was having difficulty with her monitor at home. It read high. Discharge was temporarily reversed and lab work performed.
After lab work came back, blood sugar was noted to be significantly lower than the 2 fingersticks earlier. Patient had received 8 units of insulin. We rechecked the blood sugar and it was 81 on a new glucometer and 84 on the original glucometer
that read 464 and 579. Patient is mentating appropriately. She is drinking orange juice at this point to counteract any of the effects of the insulin. Patient to be observed in the emergency department.
Attending Sign Out Note - Kajal Novak DO
06:30 -assuming care of patient, 73-year-old female with known history of insulin-dependent diabetes presenting after a fall. Patient had been checking her glucometer, fell backward after tripping and struck her head. Patient came to the hospital
due to the fall. No significant signs of trauma on exam. Patient hemodynamically stable in the ER. CT brain negative. On discharge planning, glucose had been checked, significantly elevated, greater than 500. For this reason, plan for
laboratory analysis to ensure no signs of DKA. Patient getting fluids and insulin
07:00 -patients sugar is now within normal limits, and on recheck is in the 80s. Patient had been given 8 units of insulin. Concern for overcorrection so we will continue to monitor. Patient given food.
09:00 - Blood sugar has stabilized. Feel stable for discharge. Advised continued monitoring of her sugar. Return precautions discussed
ED Attending Note
<Ramon Avendaño DO - Last Filed: 03/18/24 07:01>
-
Portions of this chart may have been created with voice recognition software.� Occasional wrong word or��sound alike� substitutions may have occurred due to the inherent limitations of voice recognition software.
Discharge Plan
Departure
Patient Disposition: Home (Routine Discharge)
Date of Disposition: 03/18/24
Time of Disposition: 09:07
Patient with high blood pressure during this ER visit?: No
Discharge Problem:
Fall, Abrasion of skin, Hyperglycemia
Instructions: Minor Head Injury (DC), Fall Prevention for Older Adults
Prescriptions:
No Action
labetalol 200 MG tablet
100 mg PO BID
simvastatin 20 MG tablet
20 mg PO HS
insulin glargine [Lantus Solostar U-100 Insulin] 100 unit/mL (3 mL) Insulin Pen
30 unit SC HS
insulin aspart U-100 [Novolog FlexPen U-100 Insulin] 100 unit/mL (3 mL) Insulin Pen
14 unit SC MEALS
multivitamin Tablet
2 tab PO DAILY
aspirin 81 mg Tablet,Delayed Release (Dr/Ec)
81 mg PO HS
acetaminophen 500 mg Tablet
1,000 mg PO Q6H PRN (Reason: pain)
cefuroxime axetil 500 mg Tablet
500 mg PO BID
Patient Comments:
last day 12/14/22
cholecalciferol (vitamin D3) [Vitamin D3] 25 mcg (1,000 unit) Capsule
50 mcg PO DAILY
coenzyme Q10 [CoQ-10] 100 mg Capsule
200 mg PO DAILY
polyethylene glycol 3350 [Miralax] 17 gram/dose Powder
17 g PO DAILY
fluticasone propionate 50 mcg/actuation [place],Suspension
2 spray INTRANASAL BID
carboxymethylcellulose sodium [Refresh Plus] 0.5 % Dropperette
2 drp BOTH EYES TIDPRN PRN (Reason: dry eyes)
Referrals:
Geri Ramirez MD [Family Provider] -
Activity Restrictions/Additional Instructions:
It was a pleasure meeting you and taking part in your care. We hope for your continued healing and wellness.
Please read discharge instructions in their entirety. However, they are for general education and may not describe your exact diagnosis at discharge. Information on your ER visit and medical conditions were discussed with you along with appropriate
follow up information...
If indicated, please take your medications as instructed and indicated on discharge paperwork.
Please schedule a follow up appointment as directed. Call to schedule an appointment
Please return to the emergency department with ANY change in, persisting, or worsening of symptoms. If any of your symptoms do not improve, or persist, or become more severe within 6-12 hours, please return to the emergency department for further
care.
Please return to the emergency department if you develop a headache, neck pain/stiffness, fever greater than 100.4F, chest pain, shortness of breath, persistent nausea, vomiting, slurred speech, difficulty walking, numbness/tingling, weakness, signs
of infection or any other symptoms that are worrisome to you.
If you have any questions or concerns please do not hesitate to call the Hospital at or E-mail me directly at [email or web address]
Interventions
Interventions:
*Risk Screen - Suicide Last Done: 03/18/24 07:42
*General Assessment Last Done: 03/18/24 03:11
*Neglect/Abuse Screening Last Done: 03/18/24 03:11
ED- Fall Risk Assessment Last Done: 03/18/24 03:46
*ED COVID-19 Vaccine History Last Done: 03/18/24 03:11
*Nursing Disposition Last Done: 03/18/24 10:22
ED- Neurological Assessment Last Done: 03/18/24 03:46
ED-Skin Assessment Last Done: 03/18/24 03:46
Discharge Date and Time
Discharge Date/Time: 03/18/24 10:22
Print Language: GREENLANDIC
[2024-03-18 05:44] LABS: Glucose - Point of Care 579 mg/dl (70-99)
[2024-03-18 05:44] LABS: Glucose - Point of Care 464 mg/dl (70-99)
[2024-03-18] MEDS: NSS 1000 IV (06:12)
[2024-03-18 06:14] VITALS: BP 134/71
[2024-03-18] MEDS: NOVOLIN R 8 UNITS IV (06:16)
[2024-03-18 06:35] LABS: % Basophils 0.4 % (0-2); % Eosinophils 0.4 % (0-6); % Immature Granulocytes 0.4 % (0-0.5); % Lymphocytes 16.5 % (20.5-51.1); % Monocytes 6.6 % (1.7-9.3); % Neutrophils 75.7 % (42.2-75.2); Absolute Lymphocytes 1.6 10^3/uL (1.2-3.4); Absolute Monocytes 0.6 10^3/uL (0.1-0.6); Absolute Neutrophils 7.4 10^3/uL (1.4-6.5); Hematocrit 44.1 % (37.0-47.0); Hemoglobin 13.6 g/dL (12.0-16.0); Mean Corp Hgb Conc. 30.8 g/dL (33.0-37.0); Mean Corpuscular Hgb 28.2 pg (27.0-31.0); Mean Corpuscular Volume 91.3 fL (81.0-99.0); Mean Platelet Volume 9.4 fL (7.4-10.4); Nucleated Red Blood Cells % 0 %; Platelet Count 281 10^3/uL (130-400); Red Blood Cell Count 4.83 10^6/uL (4.20-5.40); Red Cell Dist. Width 13.1 % (11.5-14.5); White Blood Cell Count 9.7 10^3/uL (4.8-10.8)
[2024-03-18 06:46] LABS: Urine Albumin Trace (Neg - Trace); Urine Bilirubin Negative (Negative); Urine Character Clear (Clear); Urine Color Yellow; Urine Glucose Negative (Negative); Urine Ketone Negative (Negative); Urine Leukocyte 1+ (Negative); Urine Nitrite Negative (Negative); Urine Occult Blood Negative (Negative); Urine Specific Gravity 1.025 (<1.030); Urine Urobilinogen Negative (Neg - 1+)
[2024-03-18 06:49] LABS: ALT (SGPT) 50 U/L (0-35); AST (SGOT) 48 U/L (14-36); Albumin 4.3 g/dl (3.5-5.0); Alkaline Phosphatase 78 U/L (38-126); Blood Urea Nitrogen 37 mg/dl (7-17); Calcium 9.6 mg/dl (8.4-10.2); Carbon Dioxide 29 mmol/L (22-30); Chloride 101 mmol/L (98-107); Estimated Creatinine Clearance 63 ml/min; Glucose 131 mg/dl (70-99); Potassium 4.5 mmol/L (3.5-5.1); Sodium 140 mmol/L (135-145); Total Bilirubin 0.4 mg/dl (0.2-1.3); Total Protein 6.7 g/dl (6.3-8.2); eGFR > 60.00
[2024-03-18 06:56] LABS: B-Hydroxybutyrate 0.13 mmol/L (0.02-0.27)
[2024-03-18 06:59] LABS: Glucose - Point of Care 84 mg/dl (70-99)
[2024-03-18 07:00] LABS: Glucose - Point of Care 81 mg/dl (70-99)
[2024-03-18 07:38] LABS: Glucose - Point of Care 108 mg/dl (70-99)
[2024-03-18 07:40] VITALS: BP 139/77
[2024-03-18 08:21] LABS: Urine Urothelial Cell 0-2 /LPF (FEW)
[2024-03-18 08:22] LABS: Urine Red Blood Cell None Seen /HPF (0-2)
[2024-03-18 09:00] LABS: Glucose - Point of Care 260 mg/dl (70-99)
[2024-03-18 09:09] LABS: Glycohemoglobin (HgbA1c) 6.6 % (4.0-5.6)
[2024-03-18 10:00] VITALS: BP 136/74
== END 2024-03-18 10:22 | disposition home or self-care (01) ==
LOC: EMR 02:54
PROVIDERS: Student in an Organized Health Care Education/Training Program; EMERGENCY PHYSICIAN Student in an Organized Health Care Education/Training Program; FAMILY PHYSICIAN Internal Medicine
DX: S09.90XA Unspecified injury of head, initial encounter (principal); S50.312A Abrasion of left elbow, initial encounter; M79.652 Pain in left thigh; W18.00XA Striking against unspecified object with subsequent fall, initial encounter; E11.65 Type 2 diabetes mellitus with hyperglycemia; E78.00 Pure hypercholesterolemia, unspecified; Z79.4 Long term (current) use of insulin; Z79.82 Long term (current) use of aspirin; Z88.1 Allergy status to other antibiotic agents
CPT/HCPCS: 99284; 96374; 70450; 80053; 81003; 81015; 82010; 82962; 83036; 85025

== ENCOUNTER 2024-05-07 03:39 | Emergency (ER) | payer MEDICARE, OTHER, SELFPAY ==
[2024-05-07 03:43] VITALS: BP 145/72
[2024-05-07 03:47] LABS: Glucose - Point of Care 91 mg/dl (70-99)
[2024-05-07 04:07] LABS: % Basophils 0.5 % (0-2); % Eosinophils 1.5 % (0-6); % Immature Granulocytes 0.4 % (0-0.5); % Lymphocytes 19.2 % (20.5-51.1); % Monocytes 7.4 % (1.7-9.3); Absolute Eosinophils 0.1 10^3/uL (0-0.7); Absolute Lymphocytes 1.6 10^3/uL (1.2-3.4); Absolute Monocytes 0.6 10^3/uL (0.1-0.6); Absolute Neutrophils 6.1 10^3/uL (1.4-6.5); Hematocrit 40.2 % (37.0-47.0); Hemoglobin 12.8 g/dL (12.0-16.0); Mean Corp Hgb Conc. 31.8 g/dL (33.0-37.0); Nucleated Red Blood Cells % 0 %; Platelet Count 253 10^3/uL (130-400); Red Blood Cell Count 4.57 10^6/uL (4.20-5.40); Red Cell Dist. Width 13.9 % (11.5-14.5); White Blood Cell Count 8.5 10^3/uL (4.8-10.8)
[2024-05-07 04:27] LABS: ALT (SGPT) 38 U/L (0-35); AST (SGOT) 33 U/L (14-36); Albumin 3.9 g/dl (3.5-5.0); Alkaline Phosphatase 73 U/L (38-126); Blood Urea Nitrogen 33 mg/dl (7-17); Calcium 9.8 mg/dl (8.4-10.2); Carbon Dioxide 30 mmol/L (22-30); Chloride 103 mmol/L (98-107); Glucose 86 mg/dl (70-99); Potassium 4.3 mmol/L (3.5-5.1); Sodium 138 mmol/L (135-145); Total Bilirubin 0.5 mg/dl (0.2-1.3); Total Protein 6.3 g/dl (6.3-8.2); eGFR > 60.00
[2024-05-07 04:58] VITALS: BMI 37.6
[2024-05-07 05:00] VITALS: BP 139/75
[2024-05-07 05:00] LABS: Glucose - Point of Care 91 mg/dl (70-99)
--- NOTE | 2024-05-07 05:47 | ED.GENMED ---
History of Present Illness
<Ramon Snow DO - Last Filed: 05/07/24 06:40>
General
Chief Complaint: Blood Sugar Problem
Time Seen by Provider: 05/07/24 04:58
Past History
<Ramon Snow DO - Last Filed: 05/07/24 06:40>
Past History
ED Past Medical History: Hypercholesterolemia, NIDDM and Other
ED Past Surgical History: Appendectomy and Tonsilectomy
Social History
Tobacco: Non-smoker
Alcohol: None
Drug: None
Personal: Single
Living: alone
Employment: Employed
Family History
Family History: Other (Noncontributory)
Course
<Ramon Snow DO - Last Filed: 05/07/24 06:40>
Orders/Labs/Results
Orders:
Orders
05/07/24 03:45
Bedside Glucose Monitoring-ONCE As Directed
05/07/24 03:53
CMP [Comprehensive Metabolic Panel] Urgent
Complete Blood Count/With Diff Urgent
05/07/24 04:45
Accucheck Once [Bedside Glucose Monitoring-ONCE] As Directed
05/07/24 07:18
Urinalysis Reflex To Culture Urgent
Date Specimen was Collected: 05/07/24
Time Specimen was Collected: 07:17
Urine Microscopic Reflex Cult Urgent
Urine Culture Urgent
SAHARA Source: U
Specimen Description:
Date Specimen was Collected: 05/07/24
Time Specimen was Collected: 07:17
05/07/24 08:26
Acetaminophen [Tylenol] 1,000 mg PO NOW STA
05/07/24 08:27
CT Head W/o Iv Contrast Urgent
Comment:
Reason For Exam: new severe STOREY
Abnormal Lab Results
05/07/24 05/07/24 05/07/24
03:53 07:04 07:18
MCHC 31.8 L g/dL
(33.0-37.0)
Lymphocytes % 19.2 L %
(20.5-51.1)
BUN 33 H mg/dl
(7-17)
ALT 38 H U/L
(0-35)
Leukocyte Esterase Rfl 2+ A
(Negative)
POC Glucose 103 H mg/dl
(70-99)
05/07/24 03:53
05/07/24 03:53
Vital Signs
Initial and Last Documented VS:
Initial Vital Signs
Temp Pulse Resp BP Pulse Ox
36.4 C 80 20 145/72 95
05/07/24 03:43 05/07/24 03:43 05/07/24 03:43 05/07/24 03:43 05/07/24 03:43
Last Documented Vital Signs
Temp Pulse Resp BP Pulse Ox
37.1 C 80 20 139/75 90
05/07/24 08:32 05/07/24 03:43 05/07/24 03:43 05/07/24 05:00 05/07/24 06:00
<Gee Torres, DO - Last Filed: 05/07/24 10:13>
Orders/Labs/Results
Orders:
Orders
05/07/24 03:45
Bedside Glucose Monitoring-ONCE As Directed
05/07/24 03:53
CMP [Comprehensive Metabolic Panel] Urgent
Complete Blood Count/With Diff Urgent
05/07/24 04:45
Accucheck Once [Bedside Glucose Monitoring-ONCE] As Directed
05/07/24 07:18
Urinalysis Reflex To Culture Urgent
Date Specimen was Collected: 05/07/24
Time Specimen was Collected: 07:17
Urine Microscopic Reflex Cult Urgent
Urine Culture Urgent
SAHARA Source: U
Specimen Description:
Date Specimen was Collected: 05/07/24
Time Specimen was Collected: 07:17
05/07/24 08:26
Acetaminophen [Tylenol] 1,000 mg PO NOW STA
05/07/24 08:27
CT Head W/o Iv Contrast Urgent
Comment:
Reason For Exam: new severe STOREY
Abnormal Lab Results
05/07/24 05/07/24 05/07/24
03:53 07:04 07:18
MCHC 31.8 L g/dL
(33.0-37.0)
Lymphocytes % 19.2 L %
(20.5-51.1)
BUN 33 H mg/dl
(7-17)
ALT 38 H U/L
(0-35)
Leukocyte Esterase Rfl 2+ A
(Negative)
POC Glucose 103 H mg/dl
(70-99)
05/07/24 03:53
05/07/24 03:53
Vital Signs
Initial and Last Documented VS:
Initial Vital Signs
Temp Pulse Resp BP Pulse Ox
36.4 C 80 20 145/72 95
05/07/24 03:43 05/07/24 03:43 05/07/24 03:43 05/07/24 03:43 05/07/24 03:43
Last Documented Vital Signs
Temp Pulse Resp BP Pulse Ox
37.1 C 80 20 139/75 90
05/07/24 08:32 05/07/24 03:43 05/07/24 03:43 05/07/24 05:00 05/07/24 06:00
Barreralt;Gee Torres, DO - Last Filed: 05/07/24 10:13>
Update Note
Update Note:
8:35 AM: I evaluated patient at bedside. The patient reports a rather severe headache on the right side that started about [address] imaging as she has never had pain like this in the past. I have also ordered Tylenol. However
she has a nonfocal neurologic examination. Although she has 2+ leukocyte esterase on urinalysis, she has more squamous epithelial cells than white cells on the urine. Therefore relatively low suspicion for true UTI. Urine culture pending.
10:10 AM: The patient appears more comfortable. She was given time earlier. CT of the brain is unremarkable. She overall feels improved currently.
ED Attending Note
<Ramon Snow, DO - Last Filed: 05/07/24 06:40>
-
Portions of this chart may have been created with voice recognition software.� Occasional wrong word or��sound alike� substitutions may have occurred due to the inherent limitations of voice recognition software.
Discharge Plan
Departure
Patient Disposition: Home (Routine Discharge)
Date of Disposition: 05/07/24
Time of Disposition: 10:12
Patient with high blood pressure during this ER visit?: Yes
Condition: Good
Discharge Problem:
Hypoglycemia
Instructions: Type 2 Diabetes (DC)
Prescriptions:
No Action
labetalol 200 MG tablet
100 mg PO BID
simvastatin 20 MG tablet
20 mg PO HS
insulin glargine [Lantus Solostar U-100 Insulin] 100 unit/mL (3 mL) Insulin Pen
30 unit SC HS
insulin aspart U-100 [Novolog FlexPen U-100 Insulin] 100 unit/mL (3 mL) Insulin Pen
14 unit SC MEALS
multivitamin Tablet
2 tab PO DAILY
aspirin 81 mg Tablet,Delayed Release (Dr/Ec)
81 mg PO HS
acetaminophen 500 mg Tablet
1,000 mg PO Q6H PRN (Reason: pain)
cefuroxime axetil 500 mg Tablet
500 mg PO BID
Patient Comments:
last day 12/14/22
cholecalciferol (vitamin D3) [Vitamin D3] 25 mcg (1,000 unit) Capsule
50 mcg PO DAILY
coenzyme Q10 [CoQ-10] 100 mg Capsule
200 mg PO DAILY
polyethylene glycol 3350 [Miralax] 17 gram/dose Powder
17 g PO DAILY
fluticasone propionate 50 mcg/actuation [place],Suspension
2 spray INTRANASAL BID
carboxymethylcellulose sodium [Refresh Plus] 0.5 % Dropperette
2 drp BOTH EYES TIDPRN PRN (Reason: dry eyes)
Referrals:
Geri Ramirez MD [Family Provider] -
Activity Restrictions/Additional Instructions:
Decrease your next dose of insulin by 50%. Discuss you insulin dosing with your doctor. CAT scan of your brain shows no abnormality. A urine culture is currently pending. You will only be notified if there is clear sign of a urinary tract
infection requiring antibiotics.
Interventions
Interventions:
*Risk Screen - Suicide Last Done: 05/07/24 03:43
*General Assessment Last Done: 05/07/24 04:58
*Neglect/Abuse Screening Last Done: 05/07/24 03:43
*ED- Fall Risk Assessment Last Done: 05/07/24 04:58
*ED COVID-19 Vaccine History Last Done: 05/07/24 04:58
ED- Neurological Assessment Last Done: 05/07/24 04:58
Discharge Date and Time
Print Language: [place]
[2024-05-07 07:05] LABS: Glucose - Point of Care 103 mg/dl (70-99)
[2024-05-07 07:47] LABS: Urine Albumin Negative (Neg - Trace); Urine Bilirubin Negative (Negative); Urine Character Clear (Clear); Urine Color Yellow; Urine Glucose Negative (Negative); Urine Ketone Negative (Negative); Urine Leukocyte 2+ (Negative); Urine Nitrite Negative (Negative); Urine Occult Blood Negative (Negative); Urine Specific Gravity 1.015 (<1.030); Urine Urobilinogen Negative (Neg - 1+)
[2024-05-07 08:23] LABS: Urine Squamous Cell 16-20 /LPF (Few)
[2024-05-07 08:24] LABS: Urine Amorphous Seen
[2024-05-07 08:25] LABS: Urine Red Blood Cell 0-2 /HPF (0-2)
[2024-05-07] MEDS: TYLENOL 1000 MG PO (08:34)
== END 2024-05-07 11:09 | disposition home or self-care (01) ==
LOC: EMR 03:39
PROVIDERS: EMERGENCY PHYSICIAN Emergency Medicine; FAMILY PHYSICIAN Internal Medicine
DX: E11.649 Type 2 diabetes mellitus with hypoglycemia without coma (principal); E78.00 Pure hypercholesterolemia, unspecified; R51.9 Headache, unspecified; Z90.49 Acquired absence of other specified parts of digestive tract
CPT/HCPCS: 99284; 70450; 80053; 81003; 81015; 82962; 85025; 87086

== ENCOUNTER 2024-05-26 12:41 | Inpatient (IN) | payer MEDICARE, OTHER, SELFPAY ==
[2024-05-26] VITALS (12 sets, daily range): BP systolic 108–164; BP diastolic 47–100; BMI 39.1; BMI 43.3
--- NOTE | 2024-05-26 07:13 | ED.GENMED ---
History of Present Illness
General
Chief Complaint: Breathing Problem
Source: patient
Exam Limitations: none
Time Seen by Provider: 05/26/24 06:56
History of Present Illness
History of Present Illness:
73-year-old female insulin-dependent diabetic with history of hypertension hyperlipidemia presents complaining of shortness of breath that was worse this morning. She found herself sitting up to make it better. She notes some recent weight gain
and leg swelling. She denies chest pain. There has been no fever or vomiting. She denies a significant cough. EMS found her to be at 86% on room air and she was placed on 2 L of oxygen.
Past History
Past History
ED Past Medical History: Hypercholesterolemia, NIDDM and Other
ED Past Surgical History: Appendectomy and Tonsilectomy
Social History
Tobacco: Non-smoker
Alcohol: None
Drug: None
Personal: Single
Living: alone
Employment: Employed
Family History
Family History: Other (Noncontributory)
Phy Exam
Physical Exam
Physical Exam:
General: Well-appearing female with slight increased work of breathing
HEENT: Normocephalic atraumatic
Heart: Regular rate and rhythm no murmurs
Lungs: Clear no obvious wheeze or rales
Abdomen is soft nontender nondistended
Extremities: Pitting edema bilateral lower extremities
Scores
Heart Failure Risk
Heart Failure Risk Score: Not Applicable
Course
Orders/Labs/Results
Orders:
Orders
05/26/24 06:54
EKG [Electrocardiogram (*1)] Urgent
Reason for Study: Shortness of Breath
05/26/24 06:55
EKG- Treatment ONCE
05/26/24 07:10
CXR2 [CR Chest - 2 Views ] Urgent
Comment:
Reason For Exam: SOB
05/26/24 07:23
BNP [NT-proBNP] Urgent
CMP [Comprehensive Metabolic Panel] Urgent
COVID-19 Antigen Urgent
Source: Nasal Swab
Complete Blood Count/With Diff Urgent
Troponin I Urgent
Influenza A+B Rapid Molecular Urgent
SAHARA Source: Nasal Swab
Specimen Description:
05/26/24 08:28
Furosemide [Lasix] 40 mg IV NOW STA
05/26/24 10:22
Venous Blood Gas Urgent
Abnormal Lab Results
05/26/24 05/26/24
07:23 10:22
Hgb 11.8 L g/dL
(12.0-16.0)
MCHC 31.0 L g/dL
(33.0-37.0)
Immature Gran % 0.6 H %
(0-0.5)
VBG pCO2 49 H mmHg
(35-48)
VBG pO2 61 H mmHg
(30-50)
VBG HCO3 31.8 H mmol/L
(22-27)
BUN 25 H mg/dl
(7-17)
Glucose 164 H mg/dl
(70-99)
Total Protein 5.6 L g/dl
(6.3-8.2)
05/26/24 07:23
05/26/24 07:23
Vital Signs
Initial and Last Documented VS:
Initial Vital Signs
Pulse Resp Pulse Ox
81 18 96
05/26/24 06:56 05/26/24 06:56 05/26/24 06:56
Last Documented Vital Signs
Temp Pulse Resp BP Pulse Ox
98.3 F 87 21 146/78 92
05/26/24 07:02 05/26/24 10:30 05/26/24 10:30 05/26/24 10:00 05/26/24 10:30
MDM/Problems Addressed
Differential Diagnosis Includes:
Shortness of breath and increased work of breathing. Consider pneumonia versus CHF versus ACS. Will check for electrolyte abnormalities. Labs pending otherwise with troponin and BNP. Chest x-ray ordered to evaluate for pleural effusion versus
pneumonia
Patient currently requiring 2 L of nasal oxygen
*Critical Care Note
Total Time (30-74mins, 75-104mins- exclusive of procedures): Not Applicable
Update Note
Update Note:
Chest x-ray shows cardiomegaly and bilateral opacities suggest atelectasis versus pneumonia. Clinically she does not have a fever and her white blood cell count is not elevated. She appears more volume overloaded clinically. Lasix ordered. Will
admit to hospital
ED Attending Note
-
Portions of this chart may have been created with voice recognition software.� Occasional wrong word or��sound alike� substitutions may have occurred due to the inherent limitations of voice recognition software.
Discharge Plan
Departure
Patient Disposition: Admit
Date of Disposition: 05/26/24
Time of Disposition: 10:57
Presentation/result/management discussed w/ accepting MD/DO: Hospitalist
Discharge Problem:
Hypoxia
Prescriptions:
No Action
labetalol 200 MG tablet
100 mg PO BID
simvastatin 20 MG tablet
20 mg PO HS
insulin glargine [Lantus Solostar U-100 Insulin] 100 unit/mL (3 mL) Insulin Pen
30 unit SC HS
insulin aspart U-100 [Novolog FlexPen U-100 Insulin] 100 unit/mL (3 mL) Insulin Pen
14 unit SC MEALS
multivitamin Tablet
2 tab PO DAILY
aspirin 81 mg Tablet,Delayed Release (Dr/Ec)
81 mg PO HS
acetaminophen 500 mg Tablet
1,000 mg PO Q6H PRN (Reason: pain)
cholecalciferol (vitamin D3) [Vitamin D3] 25 mcg (1,000 unit) Capsule
50 mcg PO DAILY
coenzyme Q10 [CoQ-10] 100 mg Capsule
200 mg PO DAILY
polyethylene glycol 3350 [Miralax] 17 gram/dose Powder
17 g PO DAILY
fluticasone propionate 50 mcg/actuation [place],Suspension
2 spray INTRANASAL BID
carboxymethylcellulose sodium [Refresh Plus] 0.5 % Dropperette
2 drp BOTH EYES TIDPRN PRN (Reason: dry eyes)
Referrals:
Geri Ramirez MD [Family Provider] -
Interventions
Interventions:
*Risk Screen - Suicide Last Done: 05/26/24 07:07
*General Assessment Last Done: 05/26/24 07:07
*Neglect/Abuse Screening Last Done: 05/26/24 06:56
*ED- Fall Risk Assessment Last Done: 05/26/24 06:56
*ED COVID-19 Vaccine History Last Done: 05/26/24 06:56
ED- Cardiac Assessment Last Done: 05/26/24 07:35
ED- Pulmonary Assessment Last Done: 05/26/24 07:35
Discharge Date and Time
Print Language: FAROESE
[2024-05-26 07:32] LABS: % Basophils 0.5 % (0-2); % Eosinophils 3.2 % (0-6); % Immature Granulocytes 0.6 % (0-0.5); % Lymphocytes 21.3 % (20.5-51.1); % Monocytes 9.3 % (1.7-9.3); % Neutrophils 65.1 % (42.2-75.2); Absolute Eosinophils 0.2 10^3/uL (0-0.7); Absolute Lymphocytes 1.3 10^3/uL (1.2-3.4); Absolute Monocytes 0.6 10^3/uL (0.1-0.6); Absolute Neutrophils 4.1 10^3/uL (1.4-6.5); Hematocrit 38.1 % (37.0-47.0); Hemoglobin 11.8 g/dL (12.0-16.0); Mean Corpuscular Volume 90.5 fL (81.0-99.0); Nucleated Red Blood Cells % 0 %; Platelet Count 244 10^3/uL (130-400); Red Blood Cell Count 4.21 10^6/uL (4.20-5.40); Red Cell Dist. Width 14.1 % (11.5-14.5); White Blood Cell Count 6.2 10^3/uL (4.8-10.8)
[2024-05-26 07:50] LABS: COVID-19 Antigen Negative (Negative)
[2024-05-26 08:01] LABS: ALT (SGPT) 34 U/L (0-35); AST (SGOT) 29 U/L (14-36); Albumin 3.5 g/dl (3.5-5.0); Alkaline Phosphatase 85 U/L (38-126); Blood Urea Nitrogen 25 mg/dl (7-17); Calcium 9.1 mg/dl (8.4-10.2); Carbon Dioxide 29 mmol/L (22-30); Chloride 107 mmol/L (98-107); Estimated Creatinine Clearance 64 ml/min; Glucose 164 mg/dl (70-99); Potassium 4.6 mmol/L (3.5-5.1); Sodium 143 mmol/L (135-145); Total Bilirubin 0.4 mg/dl (0.2-1.3); Total Protein 5.6 g/dl (6.3-8.2); eGFR > 60.00
[2024-05-26 08:11] LABS: NT-proBNP 67.2 pg/ml; Troponin I < 0.012 ng/ml
[2024-05-26] MEDS: LASIX 40 MG IV (08:58)
[2024-05-26 10:44] LABS: Venous Blood Gas B.E. 6.1 mmol/L (-4 to +4); Venous Blood Gas HCO3 31.8 mmol/L (22-27); Venous Blood Gas O2 Sat % 92.8 %; Venous Blood Gas pCO2 49 mmHg (35-48); Venous Blood Gas pH 7.42 (7.32-7.43); Venous Blood Gas pO2 61 mmHg (30-50)
--- NOTE | 2024-05-26 12:14 | HPS.HSE ---
Family Physician
-
Family Physician: Geri Ramirez
Chief Complaint
-
shortness of breath
History of Present Illness
73 yo of female past medical history was presented with shortness of breath. Patient continues to talk about her blood glucose however states she was feeling short of breath. Initially she stated that she was feeling short of breath due to her
hypoglycemia which was not the case. Also stated of abdominal distention and lower extremity swelling. Denies any prior history of congestive heart failure. Denies any PND orthopnea. Does states of lower extremity edema which is worsening.
Denies any chest pain at rest or exertion. Denies any nausea, vomiting. Denies any cough. Denies any headache. States of chronic back pain and recent ablation done by her outpatient orthopedic. Patient called 911 and she was feeling short of
breath and was found to be hypoxic and was placed on 2 L of oxygen. Denies any fevers or chills or cough. Received 40mg IV lasix and states she is passing increasing amount of urine and states her abdomen distention has reduced.
Medical History
Past Medical History
Past Medical History: Reports HTN, Hypercholesterolemia, IDDM and Other (morbid obesity )
Past Surgical History: Reports Appendectomy and Tonsilectomy
Social History
Tobacco: Non-smoker
Alcohol: Occasional
Living: Alone
Family History
Family History: Not pertinent
Allergies / Home Medications
Allergies reflects when Allergies were last updated in [facility].
Home Medications with original date entered in [facility]
Allergy/Medication List:
Allergies
Allergy/AdvReac Type Severity Reaction Status Date / Time
amoxicillin Allergy Nausea / Verified 05/26/24 07:03
Vomiting
erythromycin base Allergy slept on Verified 05/26/24 07:03
[From Erythrocin] BR due to
diarrhea
and
Vomiting
Home Medications
labetalol 200 mg tablet 100 mg PO BID Blood pressure 08/21/20
simvastatin 20 mg tablet 20 mg PO HS High cholesterol 08/21/20
insulin aspart U-100 100 unit/mL (3 mL) subcutaneous pen (Novolog FlexPen U-100 Insulin aspart) 14 unit SC MEALS Diabetes 09/03/22
insulin glargine 100 unit/mL (3 mL) subcutaneous pen (Lantus Solostar U-100 Insulin) 30 unit SC HS Diabetes 09/03/22
acetaminophen 500 mg tablet 1,000 mg PO Q6H PRN pain 12/13/22
aspirin 81 mg tablet,delayed release 81 mg PO HS Blood Clot Prevention/Tx 12/13/22
carboxymethylcellulose sodium 0.5 % eye drops in a dropperette (Refresh Plus) 2 drp BOTH EYES TIDPRN PRN dry eyes 12/13/22
cholecalciferol (vitamin D3) 25 mcg (1,000 unit) capsule (Vitamin D3) 50 mcg PO DAILY Supplement 12/13/22
coenzyme Q10 100 mg capsule (CoQ-10) 200 mg PO DAILY Supplement 12/13/22
fluticasone propionate 50 mcg/actuation nasal spray,suspension 2 spray intranasal BID Allergies 12/13/22
multivitamin 2 tab PO DAILY Supplement 12/13/22
polyethylene glycol 3350 17 gram/dose oral powder (Miralax) 17 g PO DAILY Constipation 12/13/22
Review of Systems
-
History Source: Patient
Constitutional: Reports Weight Gain
EENT: Reports No Symptoms
Respiratory: Reports See HPI
Cardiac: Reports No Symptoms
Abdomen/GI: Reports No Symptoms
: Reports No Symptoms
Musculoskeletal: Reports Joint Pain, Joint Swelling and Edema
Skin: Reports No Symptoms
Neurological: Reports No Symptoms
Endocrine: Reports No Symptoms
Hematologic/Lymphatic: Reports No Symptoms
Psych: Reports No Symptoms
Physical Exam
Vital Signs
Vital Signs
Temp Pulse Resp BP Pulse Ox
98.3 F 87 21 146/78 92
05/26/24 07:02 05/26/24 10:30 05/26/24 10:30 05/26/24 10:00 05/26/24 10:30
Physical Exam
General: Well Developed, Well Nourished and No Apparent Distress
HEENT: NormoCephalic, Moist mucous membranes and Atraumatic
Respiratory: Clear
Cardiac: S1/S2 and Regular Rhythm; No Murmur or Rub
GI: Soft, Non Tender, Non Distended and Normal Bowel Sounds; No Organomegaly
Rectal: Deferred by Provider
Musculoskeletal: No Clubbing, No Cyanosis, Edema, Left Lower Extremity (mild erythema ) and Edema, Right Lower Extremity (mild erythema )
Skin: No Rash
Neuro: Awake, Alert, Oriented, AO x 3, No Motor Deficits and Nonfocal/grossly intact
Psych: Calm
Laboratory Results
-
05/26/24 07:23
05/26/24 07:23
Laboratory Results
Total Bilirubin 0.4 mg/dl (0.2-1.3) 05/26/24 07:23
AST 29 U/L (14-36) 05/26/24 07:23
ALT 34 U/L (0-35) 05/26/24 07:23
Alkaline Phosphatase 85 U/L (38-126) 05/26/24 07:23
Troponin I < 0.012 ng/ml 05/26/24 07:23
Impression/Plan
-
#Acute Hypoxic respiratory insufficiency likely secondary to suspected CHF
CXR Patchy parenchymal opacity within both lower lungs, there appears to be greatest within the lower lobes on the lateral view. Main differential considerations of atelectasis and/or pneumonia. Cardiomegaly with no convincing evidence for active
vascular congestion. No significant pleural effusions are identified.
Trial of 40 mg of IV Lasix daily
Check echocardiogram on Tuesday
Strict I's and O's. Daily weights
Check lower extremity venous Doppler
Wean oxygen as tolerated
#Diabetes mellitus
Check A1c.
Insulin sliding scale. Accu-Cheks.
Continue with home regimen of basal bolus
#Venous stasis B/L
Check LE doppler
IV diuresis to reduce edema
LE elevation
#Primary hypertension
? Currently elevated due to PCP anxiety and back pain
Continue with labetalol and IV diuresis
Monitor blood pressure
Hyperlipidemia
Continue with statin
Morbid obesity due to excess calories
Affects all aspects of medical care
Back pain chronic
PT eval in morning
DVT prophylaxis with Lovenox
Full code
I spent a total of 80 minutes with the patient or on the floor. More than 50% of this time involved counseling and coordination of care.
[2024-05-26] MEDS: TYLENOL 1000 MG PO (12:51)
[2024-05-26 15:08] LABS: Urine Albumin 2+ (Neg - Trace); Urine Bilirubin Negative (Negative); Urine Character Cloudy (Clear); Urine Glucose Negative (Negative); Urine Ketone Negative (Negative); Urine Leukocyte 1+ (Negative); Urine Nitrite Negative (Negative); Urine Occult Blood 4+ (Negative); Urine Urobilinogen Negative (Neg - 1+)
[2024-05-26 15:14] LABS: Urine Color Pink
[2024-05-26 15:25] LABS: Urine Squamous Cell 0-2 /LPF (Few)
[2024-05-26 15:26] LABS: Urine Bacteria Few (Negative); Urine Red Blood Cell 80-90 /HPF (0-2); Urine White Cell 0-2 /HPF (0-5)
--- NOTE | 2024-05-26 15:26 | CM ---
CM met with pt bedside
Pt resides alone in a 1st floor apartment with 0STE
Pt is independent with his ADLs with use of a WW
No home O2 baseline
Pt has continuous drier helper 10 hour weekly for errands as pt no longer driving
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
No financial insecurities
PCP- Geri Ramirez
Rx- [facility]
Pt will likely benefit from therapy evals once appropriate as she resides alone
Watch for O2 needs
Discharge Disposition- home, watch for VN and home O2 needs
[2024-05-26 17:39] LABS: Glucose - Point of Care 207 mg/dl (70-99)
[2024-05-26] MEDS: NOVOLOG FLEXPEN 14 UNITS SC (18:15)
[2024-05-26] MEDS: NOVOLOG FLEXPEN-LOW RESISTANCE 2 UNITS SC (18:16)
[2024-05-26] MEDS: LOVENOX 40 MG SC (18:17)
--- NOTE | 2024-05-26 19:30 | PTCARENOTE ---
Assumed care of patient from previous RN, patient alert, appears to be anxious and unable to follow direction. Resting in bed during change of shift, request made to this RN and dayshift RN to assist patient in standing so that she could 'shake
herself off' from all of her dinner being in her lap. Patient lives alone, states that she gets around her house without difficulty. At this time, unable to maneuver call duenas and bed linens. Call duenas placed in patients hand, reviewed appropriate
use with patient verbalizing understanding. Will monitor.
[2024-05-26] MEDS: TRANDATE 100 MG PO (21:21)
[2024-05-26] MEDS: DESENEX/MITRAZOL/ZEASORB 1 APPLIC TOPICAL (21:21)
[2024-05-26] MEDS: LIPITOR 10 MG PO (21:21)
[2024-05-26] MEDS: ASPIR LOW (ENTERIC COATED) 81 MG PO (21:22)
[2024-05-26] MEDS: LANTUS 0.3 UNITS SC (21:23)
[2024-05-26 21:26] LABS: Glucose - Point of Care 118 mg/dl (70-99)
--- NOTE | 2024-05-26 22:30 | PTCARENOTE ---
PCT in room with this RN to obtain nighttime AccuCheck. Patient requested to have juice with evening medications -- as patient is diabetic and blood sugar in 200s at dinner time, provided patient with diet leandra shawnee. Patient states to this RN
'well, hold on, I might need the other kind because of my sugars.' This RN explained to patient that with high sugars, patient would be unable to get regular leandra shawnee. Patient states 'Well it depends on my numbers. I might need the sugar.'
Fingerstick resulted 118.
Patient uses DexCom G7 and insisted on checking results from her meter to compare to result we obtained here. She could not remember the name of her meter/system, went through options with patient until she remembered the one she uses. Patient meter
reading 143. During this time, patient states to this RN 'These things (sensor on arm) are such a pain. I had to have 4 or 5 of the 9 from my last order replaced because it was a 'bad batch'.' This RN asked what that meant, patient stated 'every
time I would try to place them, I kept getting a Failure message and would have to use a new one to try again.' Patient states she has had current sensor on right arm for 5-6 days now, and that she changes them every 10 days.
Patient reports she has a 'helper' that comes to her house for a total of 10 hours per week to assist her, but does not assist with the medical devices.
[2024-05-27] MEDS: TYLENOL 1000 MG PO (00:07)
--- NOTE | 2024-05-27 01:11 | PTCARENOTE ---
Patient ringing every 15 minutes to use bedside commode to urinate. Patient is fixated on removal of purewick this evening. Patient reports that ER staff encouraged her to use purewick for frequency of urination throughout entire afternoon while in
ED. Milli RN reports patient had been insistent on having the 'wick' replaced and that she needed it because she is going so frequently and does not want to keep getting up. Patient living independently at home and cares for herself at baseline.
Redness to isak area noted, with MASD present to groin. Explained to patient that using the purewick will increase complications and encouraged patient to ring for assist to get to bedside commode this evening. Patient states 'Okay. Well, I was just
getting over an infection (UTI). I will try it.'
RN overheard patient telling her roommate that she doesn't know what to do now that she doesn't have the 'wick.' Roommate in 338-2 responded to patient by stating 'If you need to go to the bathroom, you need to call your nurse. They chose to do it
this way, so they will have to deal with it. Maybe if they get tired of coming in, they will choose to put it back on. Who knows.' Patient appears to be confused on use of call duenas despite reviewing use with her multiple times. Patient does
verbalize understanding, but then seems to forget what button to push when needed.
Another RN on unit answered patient call duenas, patient requesting to get to commode. RN reports that patient stated to her 'I know why I am up and peeing again, because I did not get a snack with my insulin tonight.' Fellow inquired about
correlation of snack and urinating. Patient responded by telling her 'I have this reaction. It does this to me. I have to have a snack with my insulin to prevent me from peeing.'
Multiple other complaints from patient throughout the evening:
'I haven't gotten any crackers yet. The lack of crackers is inducing right flank pain.'
'I am having a diet soda induced headache.' - RN offered patient ice pack
[2024-05-27 02:45] LABS: Glucose - Point of Care 81 mg/dl (70-99)
[2024-05-27 03:00] VITALS: BP 121/70
--- NOTE | 2024-05-27 03:15 | PTCARENOTE ---
Patient c/o back pain, given tylenol per MD orders around midnight with no relief per patient. Patient states she takes extra strength arthritis tylenol at home that usually takes care of her pain. Notified MARY Marti -- one time dose tramadol
25mg ordered and provided to patient. Upon reassessment, patient states she is still having back pain. More focused on her right flank, and states it is chronic pain that she always has. Repositioned in bed. Patient voiding multiple times an hour,
small amounts, PVR bladder scan by INSPECTOR POISING at bedside showing 0mls in bladder. Will monitor.
[2024-05-27] MEDS: ULTRAM 25 MG PO (03:22)
[2024-05-27 06:00] VITALS: BMI 44.3
[2024-05-27 06:02] VITALS: BMI 43.3
[2024-05-27 06:10] LABS: % Basophils 0.5 % (0-2); % Eosinophils 2.9 % (0-6); % Immature Granulocytes 0.5 % (0-0.5); % Lymphocytes 23.3 % (20.5-51.1); % Monocytes 9.4 % (1.7-9.3); % Neutrophils 63.4 % (42.2-75.2); Absolute Eosinophils 0.2 10^3/uL (0-0.7); Absolute Lymphocytes 1.8 10^3/uL (1.2-3.4); Absolute Monocytes 0.7 10^3/uL (0.1-0.6); Absolute Neutrophils 4.8 10^3/uL (1.4-6.5); Hematocrit 39.2 % (37.0-47.0); Hemoglobin 12.4 g/dL (12.0-16.0); Mean Corp Hgb Conc. 31.6 g/dL (33.0-37.0); Mean Corpuscular Hgb 28.1 pg (27.0-31.0); Mean Corpuscular Volume 88.7 fL (81.0-99.0); Mean Platelet Volume 9.3 fL (7.4-10.4); Nucleated Red Blood Cells % 0 %; Platelet Count 266 10^3/uL (130-400); Red Blood Cell Count 4.42 10^6/uL (4.20-5.40); Red Cell Dist. Width 14.1 % (11.5-14.5); White Blood Cell Count 7.6 10^3/uL (4.8-10.8)
[2024-05-27 06:36] LABS: Blood Urea Nitrogen 27 mg/dl (7-17); Calcium 9.2 mg/dl (8.4-10.2); Carbon Dioxide 33 mmol/L (22-30); Chloride 102 mmol/L (98-107); Estimated Creatinine Clearance 53 ml/min; Glucose 112 mg/dl (70-99); Potassium 4.5 mmol/L (3.5-5.1); Sodium 140 mmol/L (135-145); eGFR > 60.00
[2024-05-27 07:34] LABS: Glucose - Point of Care 108 mg/dl (70-99)
[2024-05-27 07:36] VITALS: BP 160/85
[2024-05-27] MEDS: MIRALAX 17 GRAMS PO (08:32)
[2024-05-27] MEDS: LASIX 40 MG IV (08:32)
[2024-05-27] MEDS: TRANDATE 100 MG PO (08:32)
[2024-05-27] MEDS: VITAMIN D3 (cholecalciferol) 50 MCG PO (08:32)
[2024-05-27] MEDS: NOVOLOG FLEXPEN 14 UNITS SC ×2 (08:35→17:23)
[2024-05-27] MEDS: NOVOLOG FLEXPEN-LOW RESISTANCE SC ×3 (08:43→17:33)
--- NOTE | 2024-05-27 10:40 | W.PN.HOSP.TC ---
Today's Communication/Plan
-
trial of IV lasix
ECHO in am
adjust bp meds
dietary eval
Assessment / Plan
Assessment / Plan
#Acute Hypoxic respiratory insufficiency likely secondary to suspected CHF vs obesity hypoventilation
CXR Patchy parenchymal opacity within both lower lungs, there appears to be greatest within the lower lobes on the lateral view. Main differential considerations of atelectasis and/or pneumonia. Cardiomegaly with no convincing evidence for active
vascular congestion. No significant pleural effusions are identified.
Trial of 40 mg of IV Lasix daily
No fever. WBC normal. No productive cough-doubt pneumonia
Check echocardiogram on Tuesday. If ECHO abnormal consult cards
Strict I's and O's. Daily weights-unclear about accuracy from ER to am
Wean oxygen as tolerated
#Diabetes mellitus
Check A1c.
Insulin sliding scale. Accu-Cheks.
Continue with home regimen of basal bolus
Nutriton eval
#LE edema 2/2 Venous stasis dermatitis B/L
Check LE doppler negative
IV diuresis to reduce edema
LE elevation
Compression therapy
#Primary hypertension
? Currently elevated due to PCP anxiety and back pain
Start toprol/lisinopril
Monitor blood pressure
Hyperlipidemia
Continue with statin
Morbid obesity due to excess calories
Affects all aspects of medical care
Weight loss recommended
Back pain chronic
PT eval in morning
Suspected ANDREINA/OHSA
recommend OP pulm eval
DVT prophylaxis with Lovenox
Full code
Anticipated Discharge: > 48 hours
Subjective/Interval History
-
Date of Service: May 27, 2024
states of back pain and tramadol helps with pain
Objective Data
-
Labs:
Laboratory Results
05/27/24
05:30
WBC 7.6
Hgb 12.4
Hct 39.2
Plt Count 266
Sodium 140
Potassium 4.5
Chloride 102
Carbon Dioxide 33 H
BUN 27 H
Creatinine 0.7
Glucose 112 H
Calcium 9.2
Vital Signs:
Vital Signs
Temp Pulse Resp BP Pulse Ox
98.4 F 81 22 160/85 98
05/27/24 07:36 05/27/24 07:36 05/27/24 07:36 05/27/24 07:36 05/27/24 07:36
I&O
05/26/24 05/27/24 05/28/24
06:59 06:59 06:59
Intake Total 1200 / 1200 840 / 840
Output Total 875 / 875
Balance 1200 / 1200 -35 / -35
Physical Exam
-
General: No Apparent Distress and Morbidly Obese
HEENT: Normocephalic, Atraumatic, Moist Mucous Membranes and Oxygen
Respiratory: Decreased Breath Sounds
Cardiac: Regular Rhythm and S1/S2
GI: Soft, Nontender, Nondistended and Normal Bowel Sounds
Musculoskeletal: Edema, Right Lower Extrem and Edema, Left Lower Extrem
Neuro: Awake and AO x 3
Psych: Calm
[2024-05-27 11:23] LABS: Glucose - Point of Care 133 mg/dl (70-99)
[2024-05-27 11:26] VITALS: BP 124/64
[2024-05-27] MEDS: ZESTRIL 10 MG PO (12:45)
[2024-05-27] MEDS: ATIVAN 0.25 MG PO (12:58)
[2024-05-27 13:12] LABS: Glycohemoglobin (HgbA1c) 6.7 % (4.0-5.6)
[2024-05-27 14:37] VITALS: BP 134/60; PULSE 80; O2SAT 96
[2024-05-27] MEDS: NOVOLOG FLEXPEN SC (15:29)
[2024-05-27 15:34] VITALS: BP 125/61
[2024-05-27 16:55] LABS: Glucose - Point of Care 125 mg/dl (70-99)
[2024-05-27] MEDS: LOVENOX 40 MG SC (17:23)
[2024-05-27] MEDS: DESENEX/MITRAZOL/ZEASORB TOPICAL ×2 (17:33→20:21)
[2024-05-27 19:35] VITALS: BP 97/50
[2024-05-27] MEDS: ASPIR LOW (ENTERIC COATED) 81 MG PO (22:12)
[2024-05-27] MEDS: LIPITOR 10 MG PO (22:12)
[2024-05-27] MEDS: LANTUS 0.3 UNITS SC (22:12)
[2024-05-27 22:20] LABS: Glucose - Point of Care 139 mg/dl (70-99)
[2024-05-28] MEDS: ULTRAM 25 MG PO ×2 (02:00→09:30)
[2024-05-28 03:05] VITALS: BP 118/68
[2024-05-28 05:38] LABS: % Basophils 0.4 % (0-2); % Eosinophils 2.8 % (0-6); % Immature Granulocytes 0.5 % (0-0.5); % Lymphocytes 26.3 % (20.5-51.1); % Monocytes 9.9 % (1.7-9.3); % Neutrophils 60.1 % (42.2-75.2); Absolute Eosinophils 0.2 10^3/uL (0-0.7); Absolute Lymphocytes 2.1 10^3/uL (1.2-3.4); Absolute Monocytes 0.8 10^3/uL (0.1-0.6); Absolute Neutrophils 4.8 10^3/uL (1.4-6.5); Hemoglobin 13.2 g/dL (12.0-16.0); Mean Corp Hgb Conc. 31.4 g/dL (33.0-37.0); Mean Corpuscular Hgb 27.6 pg (27.0-31.0); Mean Corpuscular Volume 87.9 fL (81.0-99.0); Mean Platelet Volume 9.5 fL (7.4-10.4); Nucleated Red Blood Cells % 0 %; Platelet Count 270 10^3/uL (130-400); Red Blood Cell Count 4.78 10^6/uL (4.20-5.40)
[2024-05-28 06:02] LABS: Blood Urea Nitrogen 45 mg/dl (7-17); Calcium 9.5 mg/dl (8.4-10.2); Carbon Dioxide 32 mmol/L (22-30); Chloride 101 mmol/L (98-107); Estimated Creatinine Clearance 47 ml/min; Glucose 101 mg/dl (70-99); Potassium 4.5 mmol/L (3.5-5.1); Sodium 141 mmol/L (135-145); eGFR > 60.00
[2024-05-28 07:36] LABS: Glucose - Point of Care 138 mg/dl (70-99)
[2024-05-28 07:40] VITALS: BP 129/68
[2024-05-28 08:42] VITALS: BMI 43.4
[2024-05-28] MEDS: NOVOLOG FLEXPEN-LOW RESISTANCE SC (08:56)
[2024-05-28] MEDS: NOVOLOG FLEXPEN 14 UNITS SC ×3 (08:57→18:29)
[2024-05-28] MEDS: MIRALAX 17 GRAMS PO (08:58)
[2024-05-28] MEDS: LASIX 40 MG IV (08:58)
[2024-05-28] MEDS: VITAMIN D3 (cholecalciferol) 50 MCG PO (08:59)
[2024-05-28] MEDS: TOPROL XL 25 MG PO (08:59)
[2024-05-28] MEDS: ZESTRIL 10 MG PO (08:59)
[2024-05-28] MEDS: DESENEX/MITRAZOL/ZEASORB 1 APPLIC TOPICAL ×2 (08:59→22:09)
[2024-05-28 11:00] VITALS: BP 100/70
--- NOTE | 2024-05-28 11:00 | CM ---
For Echo
Watch for oxygen needs.
PT recommended SNF. Needs OT eval .
Started Lasix IV.
Will need to offer SNF .
PLAN Possible SNF discharge
[2024-05-28 12:09] LABS: Glucose - Point of Care 180 mg/dl (70-99)
[2024-05-28] MEDS: NOVOLOG FLEXPEN-LOW RESISTANCE 1 UNITS SC ×2 (13:11→18:32)
--- NOTE | 2024-05-28 14:16 | W.PN.HOSP.TC ---
Today's Communication/Plan
-
Follow-up echo
Transition to oral diuretics on 05/29
Plan for OP sleep study and pulm eval
SpO2 goal >90
Assessment / Plan
Assessment / Plan
#Acute hypoxemic respiratory insufficiency
#Lower extremity edema with stasis dermatitis
-Differential diagnosis include mild HFpEF versus OHS/ANDREINA
-Previous blood gases did show hypercapnic state, requiring low levels of oxygen here
-Chest x-ray with patchy parenchymal opacity concerning for atelectasis versus pneumonia
-Suspicion for infectious etiology very low; no fevers or leukocytosis without Abx
-Was started on IV Lasix here, echocardiogram ordered with results pending
-Appears close to euvolemic, BP soft, BUN increased; transition to oral Lasix on 05/29
-Follow-up echocardiogram and titrate GDMT as indicated
-Trend BMP, I/O's, daily weights; SpO2 goal >90%
-Outpatient sleep study and pulm evaluation
#IDDM
-Well-controlled with hemoglobin A1c 6.7%; no known microvascular complication
-Home regimen includes Lantus 30 units nightly, NovoLog 14 units with meals
-Started on ISS with Accu-Cheks upon arrival
-BG goal 140-180
#Primary hypertension
-No known history of hypertensive systemic disease
-Home medications include labetalol
-Blood pressure here well-controlled
#Chronic back pain
-Home regimen includes Tylenol 1 g as needed
#Morbid obesity
-Affects all aspects of medical care
-Encourage 30 minutes of aerobic activity as tolerated daily
-Encourage healthy diet, handout provided at [facility]
DVT prophylaxis: Subcutaneous Lovenox
Diet: Cholesterol-lowering
CODE STATUS: Full code
Disposition: SNF when medically stable
Anticipated Discharge: 24 - 48 hours
Subjective/Interval History
-
Date of Service: May 28, 2024
Seen and examined at the bedside. No acute events reported overnight. AFVSS on 1 to 2 L O2 with SpO2 mid 90s
Patient states she is breathing well today. Does complain of some arthritic pain that is chronic for her
Denies other new complaints.
Objective Data
-
Labs:
Laboratory Results
05/28/24
05:10
WBC 8.0
Hgb 13.2
Hct 42.0
Plt Count 270
Sodium 141
Potassium 4.5
Chloride 101
Carbon Dioxide 32 H
BUN 45 H
Creatinine 0.8
Glucose 101 H
Calcium 9.5
Vital Signs:
Vital Signs
Temp Pulse Resp BP Pulse Ox
98.1 F 86 20 100/70 95
05/28/24 11:00 05/28/24 11:00 05/28/24 11:00 05/28/24 11:00 05/28/24 11:00
I&O
05/27/24 05/28/24 05/29/24
06:59 06:59 06:59
Intake Total 1200 / 1200 1800 / 1800
Output Total 875 / 875
Balance 1200 / 1200 925 / 925
Review of Systems
-
History Source: Patient
All other systems: Reviewed and negative
Physical Exam
-
General: Well Developed, No Apparent Distress and Morbidly Obese
HEENT: Normocephalic, Atraumatic, Moist Mucous Membranes, Oxygen and Other (Large neck circumference)
Respiratory: Clear to Auscultation and Non Labored Respirations; Negative Wheezes, Rales or Rhonchi
Cardiac: Regular Rhythm and S1/S2; Negative Murmur, Rub or Gallop
GI: Soft, Nontender, Nondistended and Normal Bowel Sounds
Musculoskeletal: No Clubbing, No Cyanosis and No Edema
Skin: Warm, Dry and Normal Turgor; Negative Rash
Neuro: AO x 3 and Nonfocal/Grossly Intact; Negative Tremors
Psych: Calm
Data Reviewed
-
Labs: Labs Reviewed by me and Discussed with Patient
--- NOTE | 2024-05-28 14:20 | CARDSERVLU ---
Echocardiogram with Lumason completed after protocol screening completed. Allergies verified.
Patent IV site: __Rt fa___
IV site flushed with 0.9% NaCl pre and post administration.
Diluted bolus method utilized to enhance visualization of ventricular lopez.
Total volume given: 3.0____ mL
Patient tolerated all procedures well without complications.
[2024-05-28 15:28] VITALS: BP 102/56
[2024-05-28 15:28] LABS: Glucose - Point of Care 95 mg/dl (70-99)
[2024-05-28 16:35] LABS: Glucose - Point of Care 193 mg/dl (70-99)
[2024-05-28] MEDS: LOVENOX 40 MG SC (18:33)
--- NOTE | 2024-05-28 20:00 | PTCARENOTE ---
Patient hypotensive, BP 85/50, HR 83. Patient asymptomatic. MARY Orosco made aware of BP. No new orders received at this time. Will continue to monitor.
[2024-05-28 20:16] VITALS: BP 85/50
[2024-05-28 21:44] LABS: Glucose - Point of Care 191 mg/dl (70-99)
[2024-05-28] MEDS: LIPITOR 10 MG PO (22:02)
[2024-05-28] MEDS: ASPIR LOW (ENTERIC COATED) 81 MG PO (22:02)
[2024-05-28] MEDS: TYLENOL 1000 MG PO (22:02)
[2024-05-28] MEDS: LANTUS 0.3 UNITS SC (22:58)
[2024-05-28 23:38] VITALS: BP 102/45
[2024-05-29 03:20] VITALS: BP 101/54
[2024-05-29 06:00] VITALS: BMI 43.3
[2024-05-29 07:46] VITALS: BP 118/59
[2024-05-29 08:02] LABS: Glucose - Point of Care 80 mg/dl (70-99)
[2024-05-29] MEDS: NOVOLOG FLEXPEN 14 UNITS SC ×2 (09:25→12:45)
[2024-05-29] MEDS: NOVOLOG FLEXPEN-LOW RESISTANCE SC ×2 (09:28→12:43)
[2024-05-29] MEDS: DESENEX/MITRAZOL/ZEASORB 1 APPLIC TOPICAL (09:29)
[2024-05-29] MEDS: LASIX 40 MG PO (09:29)
[2024-05-29] MEDS: ZESTRIL 10 MG PO (09:30)
[2024-05-29] MEDS: TOPROL XL 25 MG PO (09:30)
[2024-05-29] MEDS: VITAMIN D3 (cholecalciferol) 50 MCG PO (09:30)
[2024-05-29] MEDS: MIRALAX 17 GRAMS PO (09:31)
[2024-05-29 10:12] VITALS: BP 107/66; PULSE 85
--- NOTE | 2024-05-29 11:15 | W.PN.HOSP.TC ---
Today's Communication/Plan
-
Continue oral Lasix and BMP in 1 week
Outpatient pulmonology for sleep study
Discharge today
Assessment / Plan
Assessment / Plan
#Acute hypoxemic respiratory insufficiency
#Lower extremity edema with stasis dermatitis
-Differential diagnosis include mild HFpEF versus OHS/ANDREINA
-Previous blood gases did show hypercapnic state, requiring low levels of oxygen here
-Chest x-ray with patchy parenchymal opacity concerning for atelectasis versus pneumonia
-Suspicion for infectious etiology very low; no fevers or leukocytosis without Abx
-Was started on IV Lasix here, echocardiogram ordered with results pending
-Echocardiogram on 05/28 with preserved LVEF, no significant abnormality
-Appears close to euvolemic, BP soft, BUN increased; transition to oral Lasix on 05/29
-Trend BMP, I/O's, daily weights; SpO2 goal >90%
-Outpatient sleep study and pulm evaluation
#IDDM
-Well-controlled with hemoglobin A1c 6.7%; no known microvascular complication
-Home regimen includes Lantus 30 units nightly, NovoLog 14 units with meals
-Started on ISS with Accu-Cheks upon arrival
-BG goal 140-180
#Primary hypertension
-No known history of hypertensive systemic disease
-Home medications include labetalol
-Blood pressure here well-controlled
#Chronic back pain
-Home regimen includes Tylenol 1 g as needed
#Morbid obesity
-Affects all aspects of medical care
-Encourage 30 minutes of aerobic activity as tolerated daily
-Encourage healthy diet, handout provided at [place]
DVT prophylaxis: Subcutaneous Lovenox
Diet: Cholesterol-lowering
CODE STATUS: Full code
Disposition: SNF
Anticipated Discharge: Today
Subjective/Interval History
-
Date of Service: May 29, 2024
Seen and examined at the bedside. No acute events reported overnight. AFVSS on room air
She denies any complaints today, states she feels well medically.
States she feels ready to leave the hospital
Objective Data
-
Vital Signs:
Vital Signs
Temp Pulse Resp BP Pulse Ox
98.1 F 85 16 118/59 91
05/29/24 07:46 05/29/24 07:46 05/29/24 07:46 05/29/24 07:46 05/29/24 07:46
I&O
05/28/24 05/29/24 05/30/24
06:59 06:59 06:59
Intake Total 1800 / 1800 530 / 530
Output Total 875 / 875 600 / 600
Balance 925 / 925 -70 / -70
Review of Systems
-
History Source: Patient
All other systems: Reviewed and negative
Physical Exam
-
General: Well Developed, No Apparent Distress, Comfortable and Morbidly Obese
HEENT: Normocephalic, Atraumatic, Moist Mucous Membranes and Anicteric
Respiratory: Clear to Auscultation and Non Labored Respirations
Cardiac: Regular Rhythm and S1/S2; Negative Murmur, Rub or Gallop
GI: Soft, Nontender, Nondistended and Normal Bowel Sounds
Musculoskeletal: No Clubbing, No Cyanosis and No Edema
Skin: Warm, Dry and Normal Turgor; Negative Rash
Neuro: AO x 3 and Nonfocal/Grossly Intact
Psych: Calm
[2024-05-29 11:27] VITALS: BP 117/68
[2024-05-29 11:50] LABS: Glucose - Point of Care 72 mg/dl (70-99)
--- NOTE | 2024-05-29 14:17 | CM ---
entered order for discharge.
Spoke with sisters and pt in room .
Reviewed PT OT evals +SNF.
Referral made to [facility].
[facility] today .
Pt on room air.
IMM reviewed and signed on chart.
Daughter swill transport pt to SNF
[facility]
report [phone]
fax [phone]
[facility] today.
--- NOTE | 2024-05-29 14:22 | CM ---
entered order for discharge.
Spoke with sisters and pt in room .
Reviewed PT OT evals +SNF.
Referral made to [facility].
[facility] accept today .
Pt on room air.
IMM reviewed and signed on chart.
Sisters will transport pt to SNF
[facility]
report [phone]
fax [phone]
[facility] today.
--- NOTE | 2024-05-30 15:14 | W.DCSUMMARY ---
Discharge Summary
Discharge Data
Date of Admission: 05/26/24
Date of Discharge: 05/29/24
Total time spent discharging patient (in min): 39
-
Pending Results: No
Hospital Course
Discharge diagnosis:
Acute hypoxemic respiratory insufficiency
Acute HFpEF
Suspected ANDREIAN/OHS
Secondary diagnoses:
IDDM
HTN
HLD
Morbid obesity
Hospital course: 73-year-old female with IDDM, HTN, HLD, seasonal allergies, morbid obesity that presented to the hospital with lower extremity swelling and shortness of breath. Suspicion for decompensation/acute heart failure, was started on IV
Lasix with clinical improvement. Echocardiogram performed in the hospital showed preserved LVEF, no significant high-grade diastology. Was titrated off of supplemental oxygen as she achieved euvolemia. Will transition to oral Lasix 40 mg daily
and given BMP for 1 week after discharge. Previous blood gas on hospitalizations here demonstrated hypercapnia with VBG CO2 near 50. Suspect that she has underlying obstructive sleep apnea with possibly superimposed OHS. Previously saw
[facility]ounty agricultural agent as an outpatient and had sleep study done though did not wear mask due to poor fit. Encouraged patient to follow-up with pulmonology referral for repeat sleep study and mask fitting. At time of discharge her home labetalol was
discontinued, started on metoprolol succinate 25 mg daily, lisinopril 10 mg daily and Lasix 40 mg daily.
Follow-up:
Draw Operator in 2 weeks
Topline Beading Machine Tender in 1 to 2-week
Family doctor in 1 to 2 weeks
BMP 1 week after discharge
Disposition:
SNF
Discharge Plan
-
Patient Disposition: [facility]/SNF
Discharge Diagnosis/Procedures: Dyspnea
Mild heart failure with preserved ejection fraction
Suspected obstructive sleep apnea/obesity hypoventilation syndrome
Condition: Fair
Diet: No added salt
Activity: As tolerated
Additional Activity: Wear lower extremity compression stockings and elevate legs while at rest
Driving Restrictions: No driving for 24 hours
Bathing Restrictions: None
Blood Work: BMP 1 week after discharge from the hospital
Other Services: PT and OT
Specialty Instructions: Weigh Daily- Call MD for wt gain/loss 3 lbs overnight/5 lbs in 1 week
Activity Restrictions/Additional Instructions:
Patient is a follow-up appointment with family doctor after discharge from the hospital. Should be seen in office within 1 to 2 weeks of discharge from the hospital.
Schedule follow-up appointment with county agricultural agent. Needs evaluation for sleep apnea and obesity hypoventilation syndrome
Schedule follow-up appointment with cardiology referral. Referral provided below
Instructions: Shortness of breath, Breathing exercises
Referrals:
Ricki Thomas MD [Active] - in two to three weeks
Geri Ramirez MD [Family Provider] -
Philippe Galan MD [Active] - in two to three weeks
Additional Discharge Medication Instructions: Start Lasix 40 mg daily
Start lisinopril 10 mg daily
Start metoprolol succinate 25 mg daily
Stop Labetalol
Prescriptions:
New
furosemide 40 mg Tablet
40 mg PO DAILY 30 Days Qty: 30 0RF
metoprolol succinate 25 mg Tablet Extended Release 24 Hr
25 mg PO DAILY 30 Days Qty: 30 0RF
lisinopril 10 mg Tablet
10 mg PO DAILY 30 Days Qty: 30 0RF
Continued
simvastatin 20 MG tablet
20 mg PO HS
insulin glargine [Lantus Solostar U-100 Insulin] 100 unit/mL (3 mL) Insulin Pen
30 unit SC HS
insulin aspart U-100 [Novolog FlexPen U-100 Insulin] 100 unit/mL (3 mL) Insulin Pen
14 unit SC MEALS
multivitamin Tablet
2 tab PO DAILY
aspirin 81 mg Tablet,Delayed Release (Dr/Ec)
81 mg PO HS
acetaminophen 500 mg Tablet
1,000 mg PO Q6HPRN PRN (Reason: mild pain)
cholecalciferol (vitamin D3) [Vitamin D3] 25 mcg (1,000 unit) Capsule
50 mcg PO DAILY
coenzyme Q10 [CoQ-10] 100 mg Capsule
200 mg PO DAILY
polyethylene glycol 3350 [Miralax] 17 gram/dose Powder
17 g PO DAILY
fluticasone propionate 50 mcg/actuation Corea,Suspension
2 spray INTRANASAL BIDPRN PRN (Reason: allergies)
carboxymethylcellulose sodium [Refresh Plus] 0.5 % Dropperette
2 drp BOTH EYES TIDPRN PRN (Reason: dry eyes)
Discontinued
labetalol 200 MG tablet
100 mg PO BID
Discharge Orders:
Discharge Patient (As Directed); Ordered 05/29/24
Ordered By: Colin Hooks
Discharge Date and Time
Discharge Date/Time: 05/29/24 14:53
Print Language: MONTSERRATIAN
== END 2024-05-29 14:53 | DRG 206 ==
LOC: 3 WEST ACU 12:41
PROVIDERS: Physician Assistant; ADMITTING PHYSICIAN Hospitalist; ATTENDING PHYSICIAN Internal Medicine; EMERGENCY PHYSICIAN Emergency Medicine; FAMILY PHYSICIAN Internal Medicine
DX: E66.2 Morbid (severe) obesity with alveolar hypoventilation (principal); I50.30 Unspecified diastolic (congestive) heart failure; Z68.41 Body mass index [BMI] 40.0-44.9, adult; R09.02 Hypoxemia; E11.649 Type 2 diabetes mellitus with hypoglycemia without coma; I87.8 Other specified disorders of veins; F41.9 Anxiety disorder, unspecified; E78.00 Pure hypercholesterolemia, unspecified; I10 Essential (primary) hypertension; G89.29 Other chronic pain; M54.9 Dorsalgia, unspecified; Z79.84 Long term (current) use of oral hypoglycemic drugs
CPT/HCPCS: 71046; 80048; 80053; 81003; 81015; 82805; 82962; 83036; 83735; 83880; 84484; 85025; 87086; 87502; 87811; 93005; 93306; 93970; 96374; 97162; 97167; 99285

== ENCOUNTER → 2024-06-01 10:50 | Outpatient (REF) | payer OTHER, MEDICARE, SELFPAY ==
[2024-06-01 11:30] LABS: % Basophils 0.7 % (0-2); % Eosinophils 2.9 % (0-6); % Immature Granulocytes 0.4 % (0-0.5); % Lymphocytes 27.5 % (20.5-51.1); % Monocytes 11.6 % (1.7-9.3); % Neutrophils 56.9 % (42.2-75.2); Absolute Basophils 0.1 10^3/uL (0-0.2); Absolute Eosinophils 0.2 10^3/uL (0-0.7); Absolute Lymphocytes 2.3 10^3/uL (1.2-3.4); Absolute Neutrophils 4.7 10^3/uL (1.4-6.5); Hematocrit 41.8 % (37.0-47.0); Mean Corp Hgb Conc. 31.1 g/dL (33.0-37.0); Mean Corpuscular Hgb 28.3 pg (27.0-31.0); Mean Corpuscular Volume 90.9 fL (81.0-99.0); Mean Platelet Volume 9.9 fL (7.4-10.4); Nucleated Red Blood Cells % 0 %; Platelet Count 278 10^3/uL (130-400); Red Cell Dist. Width 14.2 % (11.5-14.5); White Blood Cell Count 8.2 10^3/uL (4.8-10.8)
[2024-06-01 11:47] LABS: Blood Urea Nitrogen 57 mg/dl (7-17); Calcium 9.5 mg/dl (8.4-10.2); Carbon Dioxide 31 mmol/L (22-30); Chloride 104 mmol/L (98-107); Glucose 157 mg/dl (70-99); Potassium 4.8 mmol/L (3.5-5.1); Sodium 143 mmol/L (135-145); eGFR > 60.00
== END ==
LOC: OLABP 10:50
PROVIDERS: ATTENDING PHYSICIAN Family Medicine
DX: M62.59 Muscle wasting and atrophy, not elsewhere classified, multiple sites (principal); E66.01 Morbid (severe) obesity due to excess calories; J98.11 Atelectasis; I87.8 Other specified disorders of veins; R06.89 Other abnormalities of breathing; I10 Essential (primary) hypertension; M54.9 Dorsalgia, unspecified; E11.9 Type 2 diabetes mellitus without complications
CPT/HCPCS: 36415; 80048; 85025

== ENCOUNTER → 2024-06-06 09:54 | Outpatient (REF) | payer OTHER, MEDICARE, SELFPAY ==
[2024-06-06 11:59] LABS: Blood Urea Nitrogen 33 mg/dl (7-17); Carbon Dioxide 33 mmol/L (22-30); Chloride 104 mmol/L (98-107); Glucose 131 mg/dl (70-99); Potassium 4.7 mmol/L (3.5-5.1); Sodium 141 mmol/L (135-145); eGFR > 60.00
== END ==
LOC: OLABP 09:54
PROVIDERS: ATTENDING PHYSICIAN Family Medicine
DX: M62.59 Muscle wasting and atrophy, not elsewhere classified, multiple sites (principal); E66.01 Morbid (severe) obesity due to excess calories; I87.8 Other specified disorders of veins; R06.89 Other abnormalities of breathing; M54.9 Dorsalgia, unspecified; E11.9 Type 2 diabetes mellitus without complications
CPT/HCPCS: 36415; 80048

== ENCOUNTER → 2024-06-12 12:34 | Outpatient (REF) | payer OTHER, MEDICARE, SELFPAY ==
[2024-06-12 13:37] LABS: Blood Urea Nitrogen 29 mg/dl (7-17); Calcium 9.2 mg/dl (8.4-10.2); Carbon Dioxide 28 mmol/L (22-30); Chloride 104 mmol/L (98-107); Glucose 141 mg/dl (70-99); Potassium 4.9 mmol/L (3.5-5.1); Sodium 141 mmol/L (135-145); eGFR > 60.00
== END ==
LOC: OLABP 12:34
PROVIDERS: ATTENDING PHYSICIAN Family Medicine
DX: M62.59 Muscle wasting and atrophy, not elsewhere classified, multiple sites (principal); E66.01 Morbid (severe) obesity due to excess calories; J98.11 Atelectasis; I87.8 Other specified disorders of veins; R06.89 Other abnormalities of breathing; I10 Essential (primary) hypertension; M54.9 Dorsalgia, unspecified; E11.9 Type 2 diabetes mellitus without complications
CPT/HCPCS: 36415; 80048

== ENCOUNTER → 2024-06-13 11:55 | Outpatient (REF) | payer OTHER, MEDICARE, SELFPAY ==
[2024-06-13 13:06] LABS: Blood Urea Nitrogen 28 mg/dl (7-17); Calcium 9.5 mg/dl (8.4-10.2); Carbon Dioxide 30 mmol/L (22-30); Chloride 101 mmol/L (98-107); Glucose 134 mg/dl (70-99); Sodium 139 mmol/L (135-145); eGFR > 60.00
== END ==
LOC: OLABP 11:55
PROVIDERS: ATTENDING PHYSICIAN Family Medicine
DX: E11.9 Type 2 diabetes mellitus without complications (principal); M62.59 Muscle wasting and atrophy, not elsewhere classified, multiple sites; J98.11 Atelectasis; E66.01 Morbid (severe) obesity due to excess calories; I87.8 Other specified disorders of veins; R06.89 Other abnormalities of breathing
CPT/HCPCS: 36415; 80048

== ENCOUNTER 2024-07-28 10:04 | Inpatient (IN) | payer MEDICARE, OTHER, SELFPAY ==
[2024-07-28] VITALS (12 sets, daily range): BP systolic 82–136; BP diastolic 53–123; PULSE 98; O2SAT 95; BMI 38.4
[2024-07-28 06:41] LABS: % Basophils 0.6 % (0-2); % Eosinophils 2.1 % (0-6); % Immature Granulocytes 0.8 % (0-0.5); % Lymphocytes 17.4 % (20.5-51.1); % Monocytes 8.7 % (1.7-9.3); % Neutrophils 70.4 % (42.2-75.2); Absolute Basophils 0.1 10^3/uL (0-0.2); Absolute Eosinophils 0.2 10^3/uL (0-0.7); Absolute Immature Granulocytes 0.1 10^3/uL (0-0.05); Absolute Lymphocytes 1.6 10^3/uL (1.2-3.4); Absolute Monocytes 0.8 10^3/uL (0.1-0.6); Absolute Neutrophils 6.3 10^3/uL (1.4-6.5); Hematocrit 35.5 % (37.0-47.0); Hemoglobin 11.5 g/dL (12.0-16.0); Mean Corp Hgb Conc. 32.4 g/dL (33.0-37.0); Mean Corpuscular Hgb 28.4 pg (27.0-31.0); Mean Corpuscular Volume 87.7 fL (81.0-99.0); Nucleated Red Blood Cells % 0 %; Platelet Count 315 10^3/uL (130-400); Red Blood Cell Count 4.05 10^6/uL (4.20-5.40); Red Cell Dist. Width 14.6 % (11.5-14.5); White Blood Cell Count 8.9 10^3/uL (4.8-10.8)
[2024-07-28 06:57] LABS: ALT (SGPT) 30 U/L (0-35); AST (SGOT) 25 U/L (14-36); Albumin 3.9 g/dl (3.5-5.0); Alkaline Phosphatase 72 U/L (38-126); Blood Urea Nitrogen 38 mg/dl (7-17); Calcium 9.2 mg/dl (8.4-10.2); Carbon Dioxide 27 mmol/L (22-30); Chloride 102 mmol/L (98-107); Estimated Creatinine Clearance 56 ml/min; Glucose 174 mg/dl (70-99); Potassium 4.8 mmol/L (3.5-5.1); Sodium 136 mmol/L (135-145); Total Bilirubin 0.5 mg/dl (0.2-1.3); Total Protein 6.4 g/dl (6.3-8.2); eGFR > 60.00
[2024-07-28 07:09] LABS: NT-proBNP < 20.0 pg/ml; Troponin I < 0.012 ng/ml
--- NOTE | 2024-07-28 08:21 | ED.GENMED ---
History of Present Illness
General
Chief Complaint: Breathing Problem
Time Seen by Provider: 07/28/24 07:30
History of Present Illness
History of Present Illness:
74-year-old female with history of CHF, diabetes, morbid obesity, hypertension presenting to the emergency department for shortness of breath. Patient reports that last evening she started to feel generally unwell and then woke up this morning
feeling very short of breath. She feels a rattling in her chest. Denies any significant cough. Denies fever. Does note recent hospitalization for similar symptoms. On review of EMR, patient admitted from 05/26 to 05/29, found to be hypoxic and
thought to be in heart failure. Patient was started on Lasix. Denies chest pain. Does note lower extremity edema. Denies abdominal pain or GI symptoms
Past History
Past History
ED Past Medical History: Hypercholesterolemia, NIDDM and Other
ED Past Surgical History: Appendectomy and Tonsilectomy
Social History
Tobacco: Non-smoker
Alcohol: None
Drug: None
Personal: Single
Living: alone
Employment: Employed
Family History
Family History: Other (Noncontributory)
Phy Exam
Physical Exam
Physical Exam:
General: Well-appearing, no clinical signs of dehydration, nontoxic and in no acute distress
HEENT: protecting airway
Neck: appears supple
CV: Normal heart rate, regular rhythm
Resp: Tachypneic, rhonchorous breath sounds
Abd: Soft and non-distended, no tenderness to palpation
Extremities: No deformities, +2 pitting edema bilaterally, symmetric, chronic venous stasis
Neuro: alert, no focal neurologic deficit
: deferred
Rectal: deferred
Psych: Normal affect
Skin: Intact
Scores
Heart Failure Risk
Heart Failure Risk Score: Yes
History of Stroke or TIA: No
History of intubation for respiratory distress: No
Heart rate on ED arrival >/= 110: No
SaO2 <90% on arrival on room air: Yes
HR >/=110 during 3min walk test (or too ill to perform test): No
ECG has acute ischemic changes: No
Urea >/=12mmol/L (BUN 33.6mg/dL): No
Serum CO2>/=35mmol/L: No
Troponin I or T elevated to NC Level (0.4mg/dL): No
NT-proBNP >/=5,000ng/L (5,000pg/ml): No
HF Risk Score: 1
Admission Status: MEDIUM RISK 5.1% Consider observation or discharge to home with homecare & f/u visit to PCP/Seismographer, or SNF for treatment
Course
Orders/Labs/Results
Orders:
Orders
07/28/24 06:23
EKG [Electrocardiogram (*1)] Urgent
Reason for Study: Shortness of Breath
07/28/24 06:24
EKG- Treatment ONCE
07/28/24 06:32
Complete Blood Count/With Diff Urgent
Comprehensive Metabolic Panel Urgent
NT-proBNP Urgent
Troponin I Urgent
07/28/24 06:38
Chest [CR Chest - 2 Views ] Urgent
Comment:
Reason For Exam: SOB
07/28/24 08:26
Venous Blood Gas Urgent
%Oxygen/Room Air: 30
07/28/24 09:46
Admit/Transfer Patient As Directed
Co-Sign Provider:
Level of Care: Inpatient admission
Assign to:: Telemetry
Physician / Group: Colin Hooks
Diagnosis: Hypoxemia
Reason for Telemetry: Arrhythmia
Date to Stop Telemetry: 07/31/24
Time to Stop Telemetry: 11:00
Reason for Hospitalization: hypoxemia
Expected length of stay greater than two midnights?: Yes
ELOS- Estimated Length of Stay in days: 3
I certify the patient meets the requirements for IP care: Yes
PRN Pain Medication Management As Directed
May give lesser potent ordered pain med per pt: Yes
preference::
Protocol:: Medication orders for pain may be administered in a
manner that supports deferring to patient preference
when the pt is:
- Requesting an ordered lesser potent pain medication.
Least to most potent pain medications are defined
as: acetaminophen < NSAID < tramadol < opioids
(morphine, oxycodone, hydromorphone).
- Requesting a lesser dose of the same medication IF
ORDERED.
- Requesting a less intrusive route of administration
if both routes are prescribed by the provider (PO <
IV).
07/28/24 09:48
Code Status As Directed
Resuscitation Status: Full Code
07/28/24 Lunch
2000 calorie (17 carb) Diabetic
At Your Request: Full Participation
Does patient need a safe tray?: No
Fluid Restriction: 1800 mL/day (60 oz)
Diabetic Diet: Sodium, 2 Gram
07/28/24 11:24
Acetaminophen [Tylenol] 1,000 mg PO Q6HPRN PRN mild pain
Bisacodyl [Dulcolax] 10 mg RECTAL [id number] PRN
Docusate W/Senna [Senokot-S] 1 tablet PO BIDPRN PRN
Polyethylene Glycol Powder [Miralax] 17 grams PO DAILYPRN PRN
fluticasone propionate 2 spray NASAL BIDPRN PRN
07/28/24 11:24
Echo 2D MMode Color/Doppler Routine
Reason for Study: AF
Activity As Directed
Activity Level: Out of Bed-Early Mobility
Intake/ Output As Directed
Frequency: q12h
Vital Signs As Directed
Frequency: Per unit guidelines
Weight As Directed
Frequency: Daily
O2 Therapy [RESP] Routine
Titrate/Wean O2 to maintain O2 sat greater than (%): 90
DX Deep Vein Thrombosis Video Routine
07/28/24 12:00
Artificial Tears (Pf) [Refresh Eye Drops (Pf)] 2 drops BOTH EYES TIDPRN PRN
Insulin Aspart Pen [Novolog Flexpen] 14 units SC MEALS
07/28/24 18:00
Enoxaparin Sodium [Lovenox] 40 mg SC QPM
07/28/24 22:00
Aspirin Low Dose EC [Aspir Low (Enteric Coated)] 81 mg PO HS
Atorvastatin [Lipitor] 10 mg PO HS
insulin glargine [Lantus Solostar U-100 Insulin] 30 unit SC HS
07/29/24 06:00
Basic Metabolic Panel IN AM
Complete Blood Count/With Diff IN AM
Magnesium IN AM
07/29/24 08:00
Cholecalciferol (Vitamin D3) [VITAMIN D3 (cholecalciferol)] 50 mcg PO DAILY
Furosemide [Lasix] 40 mg IV DAILY
Lisinopril [Zestril] 10 mg PO DAILY
Metoprolol Xl [Toprol Xl] 25 mg PO DAILY
Multivitamin [Theragran] 2 tablet PO DAILY
Polyethylene Glycol Powder [Miralax] 17 grams PO DAILY
coenzyme Q10 [CoQ-10] 200 mg PO DAILY
07/31/24 11:00
DC Protocol for Telemetry ONCE
Abnormal Lab Results
07/28/24 07/28/24
06:32 08:26
RBC 4.05 L 10^6/uL
(4.20-5.40)
Hgb 11.5 L g/dL
(12.0-16.0)
Hct 35.5 L %
(37.0-47.0)
MCHC 32.4 L g/dL
(33.0-37.0)
RDW 14.6 H %
(11.5-14.5)
Abs Immat Gran (auto) 0.1 H 10^3/uL
(0-0.05)
Absolute Monos (auto) 0.8 H 10^3/uL
(0.1-0.6)
Immature Gran % 0.8 H %
(0-0.5)
Lymphocytes % 17.4 L %
(20.5-51.1)
VBG pO2 184 H mmHg
(30-50)
VBG HCO3 29.9 H mmol/L
(22-27)
BUN 38 H mg/dl
(7-17)
Glucose 174 H mg/dl
(70-99)
07/28/24 06:32
07/28/24 06:32
Vital Signs
Initial and Last Documented VS:
Initial Vital Signs
Temp Pulse Resp BP Pulse Ox
98.7 F 113 20 106/60 88
07/28/24 06:25 07/28/24 06:25 07/28/24 06:25 07/28/24 06:25 07/28/24 06:25
Last Documented Vital Signs
Temp Pulse Resp BP Pulse Ox
99.1 F 97 20 133/76 98
07/28/24 11:45 07/28/24 11:45 07/28/24 11:45 07/28/24 11:45 07/28/24 11:45
MDM/Problems Addressed
MDM/Problems Addressed:
74-year-old female with history of obesity, hypertension, diabetes, heart failure presenting for shortness of breath. Vital signs on arrival are significant for hypoxia and tachypnea.
On arrival, patient is in no acute distress, stabilized on supplemental O2. In the setting of shortness of breath, history of heart failure, lower extremity edema, concern for possible CHF. Infection is also a consideration, however symptoms acute
nature. No report of cough or fever. EKG obtained, nonischemic. Patient without any complaint of chest pain. Without present concern for ACS. Hypercapnia is also consideration. On previous admission, was found to be hypercapnic, suspected ANDREINA.
Will check VBG. Plan for laboratory analysis, chest x-ray imaging, respiratory monitoring.
08:30 - Chest x-ray does show evidence of pulmonary edema, consistent with exam. There is mention of possible pneumonia, however patient without any symptoms. Holding antibiotics. Will administer Lasix. Given O2 requirements, plan for admission
and diuresis
*EKG
Interpreted by ED Provider?: Yes
EKG Intrepretation Date: 07/28/24
EKG Intrepretation Time: 08:25
Interpretation: normal
Comparison EKG: no changes (05/26/24)
Heart Rate: 99
Rate: normal
Rhythm: sinus
[place]: left axis deviation
Interval: normal interval
QRS Pattern: other (left anterior fascicular block)
Ischemia: no ischemia
*Critical Care Note
Total Time (30-74mins, 75-104mins- exclusive of procedures): Not Applicable
ED Attending Note
-
Portions of this chart may have been created with voice recognition software.� Occasional wrong word or��sound alike� substitutions may have occurred due to the inherent limitations of voice recognition software.
Discharge Plan
Departure
Patient Disposition: Admit
Date of Disposition: 07/28/24
Time of Disposition: 08:34
Presentation/result/management discussed w/ accepting MD/DO: Hospitalist
Patient with high blood pressure during this ER visit?: No
Condition: Fair
Discharge Problem:
Congestive heart failure, Dyspnea
Interventions
Interventions:
*Risk Screen - Suicide Last Done: 07/28/24 06:25
*General Assessment Last Done: 07/28/24 06:25
*Neglect/Abuse Screening Last Done: 07/28/24 06:25
*ED- Fall Risk Assessment Last Done: 07/28/24 06:45
*ED COVID-19 Vaccine History Last Done: 07/28/24 06:45
*Nursing Disposition Last Done: 07/28/24 11:43
ED- Cardiac Assessment Last Done: 07/28/24 06:37
ED- Pulmonary Assessment Last Done: 07/28/24 06:37
Discharge Date and Time
Discharge Date/Time: 07/28/24 11:44
[2024-07-28 08:41] LABS: Venous Blood Gas B.E. 4.9 mmol/L (-4 to +4); Venous Blood Gas HCO3 29.9 mmol/L (22-27); Venous Blood Gas O2 Sat % 99.1 %; Venous Blood Gas pCO2 45 mmHg (35-48); Venous Blood Gas pH 7.43 (7.32-7.43); Venous Blood Gas pO2 184 mmHg (30-50)
--- NOTE | 2024-07-28 09:43 | HPS.HSE ---
Family Physician
-
Family Physician: NOT KNOW UNKNOWN - PT DOES
Chief Complaint
-
dyspnea
History of Present Illness
74-year-old female with HFpEF, IDDM, hypertension, dyslipidemia, morbid obesity that presented to the ED today with a complaint of shortness of breath. Symptoms started yesterday evening when she began feeling unwell, awoke this morning feeling
very short of breath and having a 'rattling sensation' in her chest. Denies coughing or fever. States she was hospitalized last time with similar symptoms. During that time she was diagnosed with new onset HFpEF and started on Lasix regimen.
Recommended outpatient follow-up for sleep study. Does mention worsening lower extremity edema. Upon arrival was tachycardic at 113/min with SpO2 88% on room air, otherwise afebrile and hemodynamically stable. Placed on a 2 L O2 with SpO2 95%.
Weight increased to 84 kg from 75.5 kg at last hospital stay though possibly related to ED versus floor bed readings. Initial labs with BUN 38, hemoglobin 11.5, glucose 174 but otherwise unremarkable. VBG without hypercapnia. Chest x-ray with
signs of bilateral effusions and pulmonary congestion with mild cardiomegaly. X-ray did show chronic consolidation of right middle lobe likely atelectasis versus scarring. ECG showed NSR with low voltage QRS and left anterior fascicular block, no
acute ischemic findings. Initial troponin negative with BNP very low, <20. Was given 1 dose of IV Lasix 40 mg in the ED. Blood pressure following IV Lasix was 97/60 mmHg while I was in the room.
Medical History
Past Medical History
Past Medical History: Reports Other
Additional Past Medical History:
HFpEF
IDDM
Hypertension
Dyslipidemia
Morbid obesity
Suspected ANDREINA/OHS
Past Surgical History: Reports Other
Additional Past Surgical History:
Appendectomy
Tonsillectomy
Social History
Tobacco: Non-smoker
Alcohol: Occasional
Drug: None
Living: Alone
Family History
Family History: Not pertinent
Allergies / Home Medications
Allergies reflects when Allergies were last updated in [employer]
Home Medications with original date entered in [employer]
Allergy/Medication List:
Allergies
Allergy/AdvReac Type Severity Reaction Status Date / Time
amoxicillin Allergy Nausea / Verified 05/26/24 07:03
Vomiting
erythromycin base (From Allergy slept on Verified 05/26/24 07:03
Erythrocin) BR due to
diarrhea
and
Vomiting
Home Medications
simvastatin 20 mg tablet 20 mg PO HS High cholesterol 08/21/20
insulin aspart U-100 100 unit/mL (3 mL) subcutaneous pen (Novolog FlexPen U-100 Insulin aspart) 14 unit SC MEALS Diabetes 09/03/22
insulin glargine 100 unit/mL (3 mL) subcutaneous pen (Lantus Solostar U-100 Insulin) 30 unit SC HS Diabetes 09/03/22
acetaminophen 500 mg tablet 1,000 mg PO Q6HPRN PRN mild pain 12/13/22
aspirin 81 mg tablet,delayed release 81 mg PO HS Blood Clot Prevention/Tx 12/13/22
carboxymethylcellulose sodium 0.5 % eye drops in a dropperette (Refresh Plus) 2 drp BOTH EYES TIDPRN PRN dry eyes 12/13/22
cholecalciferol (vitamin D3) 25 mcg (1,000 unit) capsule (Vitamin D3) 50 mcg PO DAILY Supplement 12/13/22
coenzyme Q10 100 mg capsule (CoQ-10) 200 mg PO DAILY Supplement 12/13/22
fluticasone propionate 50 mcg/actuation nasal spray,suspension 2 spray intranasal BIDPRN PRN allergies 12/13/22
multivitamin 2 tab PO DAILY Supplement 12/13/22
polyethylene glycol 3350 17 gram/dose oral powder (Miralax) 17 g PO DAILY Constipation 12/13/22
furosemide 40 mg tablet 40 mg PO DAILY Heart Failure 1 month #30 tabs 05/29/24
lisinopril 10 mg tablet 10 mg PO DAILY Blood pressure 1 month #30 tabs 05/29/24
metoprolol succinate 25 mg tablet,extended release 24 hr 25 mg PO DAILY Heart Failure 1 month #30 tabs 05/29/24
Review of Systems
-
History Source: Patient
A 12 point ROS was completed and negative except as noted: Yes
Constitutional: Reports No Symptoms
EENT: Reports No Symptoms
Respiratory: Reports See HPI
Cardiac: Reports See HPI
Abdomen/GI: Reports No Symptoms
: Reports No Symptoms
Musculoskeletal: Reports No Symptoms
Skin: Reports No Symptoms
Neurological: Reports No Symptoms
Endocrine: Reports No Symptoms
Hematologic/Lymphatic: Reports No Symptoms
Psych: Reports No Symptoms
Physical Exam
Vital Signs
Vital Signs
Temp Pulse Resp BP Pulse Ox
98.7 F 99 14 106/60 95
07/28/24 06:25 07/28/24 06:34 07/28/24 06:34 07/28/24 06:25 07/28/24 06:34
Physical Exam
General: Well Developed, No Apparent Distress and Morbidly Obese
HEENT: NormoCephalic, Anicteric, Moist mucous membranes, Atraumatic and PERRLA
Respiratory: Rales and Non Labored Respirations; No Wheezes, Rhonchi or Accessory Resp Muscle Use
Cardiac: S1/S2 and Regular Rhythm; No Murmur, Rub, Gallop, Peripheral Edema or JVD
GI: Soft, Non Tender, Non Distended and Normal Bowel Sounds
Musculoskeletal: No Clubbing and No Cyanosis
Skin: Warm and Dry; No Rash or Jaundice
Neuro: AO x 3, Nonfocal/grossly intact and Cranial Nerves Intact
Psych: Calm
Laboratory Results
-
07/28/24 06:32
07/28/24 06:32
Laboratory Results
Total Bilirubin 0.5 mg/dl (0.2-1.3) 05/31/25 06:32
AST 25 U/L (14-36) 07/28/24 06:32
ALT 30 U/L (0-35) 07/28/24 06:32
Alkaline Phosphatase 72 U/L (38-126) 07/28/24 06:32
Troponin I < 0.012 ng/ml 07/28/24 06:32
Data Reviewed
-
Lab Data: Labs Reviewed by me, Discussed with Physician (Cardiology, Pulmonology, ED attending) and Discussed with Patient
Impression/Plan
-
#Acute hypoxemic respiratory insufficiency
#Acute on chronic HFpEF (?)
-Differentials include HFpEF versus ANDREINA/OHS versus chronic pneumonia of RML
-HFpEF is recent diagnosis from early May, was discharged on Lasix 40 mg daily
-Presented with hypoxemia, worsening leg edema; BNP very low however
-VBG here was without any signs of hypercapnia, adequate PO2 on 2 L O2
-Chest x-ray did not show signs of cardiogenic pulmonary congestion
-Was started on IV Lasix in the ED, warm and dry; soft BP after Lasix in ED
-Question if this is predominantly pulmonary with CVI complicating picture
Plan
-Hold further IV Lasix; trend BMP, I's/O, weights (from floor bed) closely
-Continue with home metoprolol and lisinopril for now; defer against Abx
-Update echocardiogram to reassess LVEF and pulmonary pressures
-May need to consider right heart cath here to assess intracardiac pressures
-PRN duoneb
-Monitor on telemetry
-pulmonary consult
-Consider cardiology
-SpO2 goal >90%
#IDDM
-Well-controlled with hemoglobin A1c 6.7%; no known microvascular complication
-Home regimen includes Lantus 30 units nightly, NovoLog 14 units with meals
-Started on ISS with Accu-Cheks upon arrival
-BG goal 140-180
#Primary hypertension
-No known history of hypertensive systemic disease
-Home medications include lisinopril 10 mg daily and metoprolol succinate
-Blood pressure here well-controlled
#Chronic back pain
-Home regimen includes Tylenol 1 g as needed and new med that she does not know name of
-Will obtain outpatient pharmacy records for home regimen
#Morbid obesity
-Affects all aspects of medical care
-Encourage 30 minutes of aerobic activity as tolerated daily
-Encourage healthy diet, handout provided at [facility]
DVT prophylaxis: Subcutaneous Lovenox
Diet: Cholesterol-lowering
CODE STATUS: Full code
[2024-07-28 12:34] LABS: Glucose - Point of Care 137 mg/dl (70-99)
[2024-07-28] MEDS: NOVOLOG FLEXPEN SC (12:39)
--- NOTE | 2024-07-28 14:56 | CM ---
CM met with pt bedside
Pt resides alone in a 1st floor apartment with 0STE
Pt is independent with his ADLs with use of a WW
No home O2 baseline
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
No financial insecurities
PCP- Geri Ramirez
Rx- [facility]
Pt admitted to [facility] from 05/26-05/29 and dc to [facility]
Current with [facility] per pt
PT eval requested as she resides alone
Watch for O2 needs
Discharge Disposition- home with [facility], watch for possible home O2 needs or higher level of care
--- NOTE | 2024-07-28 14:58 | CON.PUL ---
Consultation
Consultation Request
Date/Time Consultation Requested: 07/28/20241014
Date/Time Consultation Performed: 07/28/2024 - 1421
Requesting Provider: Dr. Hooks
Performing Provider: Dr. Andrea
Reason for Consultation: SOB
Medical History
-
Chief Complaint: SOB
History of Present Illness:
74-year-old female with a past medical history of severe ANDREINA currently untreated due to history of noncompliance, obesity, chronic HFpEF, physical deconditioning, chronic hypercapnic respiratory failure, constipation, and history of rectal bleeding
who presented with shortness of breath. She reportedly awoke on the morning of arrival with a rattling sensation in her chest without a cough or fever. She thought she had fluid in her chest related to heart failure as this was how she presented
last hospitalization from 05/26 - 05/29/24 when she had acute HFpEF. She also endorsed worsening lower extremity edema. Initially afebrile here with pulse rate 113, respiratory rate 20, BP 106/60, saturating 88% on room air which improved to 95% with
2 L/min. Labs showed Hb 11.5, proBNP negative at <20, and CXR showed mild interstitial cardiogenic pulm edema with chronic opacification in the RML suspicious for chronic atelectasis versus scarring. She reportedly was given Lasix which led to low
blood pressure. Patient admitted to the floor and pulmonary service now consulted for additional recommendations.
PMHx: Hyperlipidemia, ADD, diabetes mellitus type 2, obesity, constipation, severe ANDREINA noncompliant with CPAP, history of falls, history of rectal bleeding
PSHx: Appendectomy, right cataract removal
Past Medical History
Past Medical History: Other (Above as per HPI)
Past Surgical History: Other (Above as per HPI)
Social History
Tobacco: Non-smoker
Alcohol: None
Drug: None
Family History
Family History: Cancer (Father: Melanoma; mother: Colon cancer), Hypertension (Father + mother) and Other (Father: Gout, Parkinson's disease)
Allergies / Home Medications
Allergies
Allergy/AdvReac Type Severity Reaction Status Date / Time
amoxicillin Allergy Nausea / Verified 05/26/24 07:03
Vomiting
erythromycin base (From Allergy slept on Verified 05/26/24 07:03
Erythrocin) BR due to
diarrhea
and
Vomiting
Home Medications
�Medication �Instructions �Recorded �Confirmed �Last Taken �Type
simvastatin 20 mg tablet 20 mg PO HS High cholesterol 08/21/20 05/26/24 12/12/22 History
insulin aspart U-100 100 unit/mL 14 unit SC MEALS Diabetes 09/03/22 05/26/24 12/12/22 History
(3 mL) subcutaneous pen (Novolog
FlexPen U-100 Insulin aspart)
insulin glargine 100 unit/mL (3 30 unit SC HS Diabetes 09/03/22 05/26/24 12/12/22 History
mL) subcutaneous pen (Lantus
Solostar U-100 Insulin)
acetaminophen 500 mg tablet 1,000 mg PO Q6HPRN PRN mild pain 12/13/22 05/26/24 12/12/22 History
aspirin 81 mg tablet,delayed 81 mg PO HS Blood Clot 12/13/22 05/26/24 12/12/22 History
release Prevention/Tx
carboxymethylcellulose sodium 0.5 2 drp BOTH EYES TIDPRN PRN dry eyes 12/13/22 05/26/24 12/12/22 History
% eye drops in a dropperette
(Refresh Plus)
cholecalciferol (vitamin D3) 25 50 mcg PO DAILY Supplement 12/13/22 05/26/24 12/13/22 History
mcg (1,000 unit) capsule (Vitamin
D3)
coenzyme Q10 100 mg capsule 200 mg PO DAILY Supplement 12/13/22 05/26/24 12/13/22 History
(CoQ-10)
fluticasone propionate 50 2 spray intranasal BIDPRN PRN 12/13/22 05/26/24 12/12/22 History
mcg/actuation nasal allergies
spray,suspension
multivitamin 2 tab PO DAILY Supplement 12/13/22 05/26/24 12/13/22 History
polyethylene glycol 3350 17 17 g PO DAILY Constipation 12/13/22 05/26/24 12/12/22 History
gram/dose oral powder (Miralax)
furosemide 40 mg tablet 40 mg PO DAILY Heart Failure 1 05/29/24 Unknown Rx
month #30 tabs
lisinopril 10 mg tablet 10 mg PO DAILY Blood pressure 1 05/29/24 Unknown Rx
month #30 tabs
metoprolol succinate 25 mg 25 mg PO DAILY Heart Failure 1 05/29/24 Unknown Rx
tablet,extended release 24 hr month #30 tabs
Review of Systems
-
History Source: Patient
All other systems: Negative unless noted
Vitals / Labs / Diagnostic Testing
Vital Signs
Temp Pulse Resp BP Pulse Ox
98.7 F 99 13 136/123 92
07/28/24 06:25 07/28/24 11:00 07/28/24 11:00 07/28/24 11:00 07/28/24 11:00
Lab Data
07/28/24 06:32
07/28/24 06:32
Diagnostic Testing:
Physical Exam
-
HEENT: Normocephalic, Anicteric and Other (Thick neck)
Cardiovascular: S1/S2 and Peripheral Edema (Trace lower extremity edema bilaterally)
Respiratory: Wheeze (n), Rales (Bilateral), Rhonchi (n) and Non-Labored Respirations
GI: Soft, Distended (Abdominal obesity), Non Tender and Normal Bowel Sounds
Neurology: Tremors (n) and Other (Sleepy)
Skin: Warm and Dry
General: Respiratory Distress (n), Comfortable, Fever (n) and Chills (n)
Assessment
-
Assessment: 74-year-old female with a past medical history of severe ANDREINA currently untreated due to history of noncompliance, obesity, chronic HFpEF, physical deconditioning, chronic hypercapnic respiratory failure, constipation, and history of
rectal bleeding who presented with shortness of breath. She reportedly awoke on the morning of arrival with a rattling sensation in her chest without a cough or fever. She thought she had fluid in her chest related to heart failure as this was how
she presented last hospitalization from 05/26 - 05/29/24 when she had acute HFpEF. She also endorsed worsening lower extremity edema. Initially afebrile here with pulse rate 113, respiratory rate 20, BP 106/60, saturating 88% on room air which
improved to 95% with 2 L/min. Labs showed Hb 11.5, proBNP negative at <20, and CXR showed mild interstitial cardiogenic pulm edema with chronic opacification in the RML suspicious for chronic atelectasis versus scarring. She reportedly was given
Lasix which led to low blood pressure. Patient admitted to the floor and pulmonary service now consulted for additional recommendations.
Chronic conditions [employer]: Hyperlipidemia, ADD, diabetes mellitus type 2, obesity, constipation, severe ANDREINA noncompliant with CPAP, history of falls, history of rectal bleeding
Impression:
#Acute respiratory failure with hypoxia
#History of a moderate restrictive lung defect with FVC 1.12 L / 58% predicted via spirometry in August 2022
#Chronic HFpEF
#Chronic atelectasis involving RML/RLL
#Obesity and history of severe ANDREINA, with her machine returned due to noncompliance (overall AHI: 67.5 events/hour with scottie O2 saturation 74% via PSG on 01/26/2023)
#Severe multilevel thoracic lumbar degenerative disc disease
#Elevated right hemidiaphragm
#Thoracic kyphosis
Plan:
- With her symptoms of lower extremity edema and shortness of breath, differential is broad
- She has physical deconditioning and she is at increased risk of acute PE
- Check lower extremity duplex and echo
- If venous duplex US shows no DVT, and echo shows normal right-sided pressures, then would check a CT chest. However if there is concern for a PE then she will need a CTA chest
- It is also possible that physical deconditioning with hypoventilation is causing her hypoxia, especially in the setting of her elevated right hemidiaphragm and thoracic kyphosis and severe thoracic lumbar DDD
- Would hold off on PT until we evaluate further for acute VTE
- As of now, I have very low suspicion for left-sided heart failure as a cause of her symptoms, hence do not feel there is a warranted need for a right heart cath at this juncture
- Regardless, continue to monitor intake/output and would continue her home medications as prescribed to prevent her from going into a volume overloaded state
- Of note, she did have spirometry testing in August 2022 which showed a moderate restrictive lung defect with no obstruction
- She carries a history of severe ANDREINA and unfortunately she was unable to maintain compliance so she had to return her machine. She continues with signs and symptoms of severe untreated sleep apnea and is in the process of getting a repeat sleep
study so that she could be restarted on CPAP
- Check VBG to assure pH and pCO2 remain stable
- Maintain SpO2 >90-94% with supplemental O2 and wean down as tolerated while keeping saturations >90%
- prn nebulized bronchodilators - not currently bronchospastic
- Incentive spirometer encouraged q1hr while awake
- Replete electrolytes with K>4, Mg>2
- Trend H/H and transfuse if needed to keep Hb>7g/dL; keep plt>20k, unless there is concern for bleeding then keep plt>50k
- Maintain euglycemia with goal BG >100 and <180
- DVT ppx
Pulmonary service will continue to follow along.
She follows with us in the pulmonary office with last visit on 06/12/2024 with MARY Hinton. Will arrange for repeat office visit after she is discharged (her next appt was going to be for August 2024)
Data:
CXR 07/28/2024:
1. Mild cardiomegaly with suggestion of mild interstitial cardiogenic pulmonary edema.
2. Chronic band of airspace consolidation in the right middle lobe which is probably chronic atelectasis or scarring. Chronic or recurrent right middle lobe pneumonia is an alternative diagnostic possibility.
3. Mild to moderate elevation of the right hemidiaphragm.
4. Moderately exaggerated thoracic kyphosis, moderate left convex curvature of the thoracolumbar junction, and severe multilevel lower thoracic and upper lumbar discogenic degenerative disease.
Total time spent today was 58 minutes for this encounter. Time includes reviewing laboratory test/imaging results, reviewing pertinent medical records, obtaining and reviewing medical history, performing an appropriate exam, ordering medications,
tests and procedures. Time also includes documentation of this encounter, coordinating patient care and communicating with other healthcare professionals. Total time does not include separately billed tests performed on this date of service.
Patient seen and evaluated on 07/28/2024
[2024-07-28 17:25] LABS: Glucose - Point of Care 179 mg/dl (70-99)
[2024-07-28] MEDS: LOVENOX 40 MG SC (17:58)
[2024-07-28] MEDS: NOVOLOG FLEXPEN 14 UNITS SC (17:59)
[2024-07-28] MEDS: NOVOLOG FLEXPEN-MODERATE RESISTANCE 1 UNITS SC (17:59)
[2024-07-28] MEDS: DESENEX/MITRAZOL/ZEASORB 1 APPLIC TOPICAL (20:46)
[2024-07-28] MEDS: LIPITOR 10 MG PO (20:48)
[2024-07-28] MEDS: ASPIR LOW (ENTERIC COATED) 81 MG PO (20:48)
[2024-07-28 20:58] LABS: Glucose - Point of Care 177 mg/dl (70-99)
[2024-07-28] MEDS: LANTUS 0.3 UNITS SC (21:45)
[2024-07-29 03:31] VITALS: BP 124/79
[2024-07-29] MEDS: TYLENOL 1000 MG PO ×3 (03:41→20:45)
[2024-07-29 06:00] VITALS: BMI 36.0
[2024-07-29 06:57] LABS: % Basophils 0.6 % (0-2); % Immature Granulocytes 0.8 % (0-0.5); % Lymphocytes 21.1 % (20.5-51.1); % Monocytes 7.5 % (1.7-9.3); Absolute Basophils 0.1 10^3/uL (0-0.2); Absolute Eosinophils 0.3 10^3/uL (0-0.7); Absolute Immature Granulocytes 0.1 10^3/uL (0-0.05); Absolute Lymphocytes 1.7 10^3/uL (1.2-3.4); Absolute Monocytes 0.6 10^3/uL (0.1-0.6); Absolute Neutrophils 5.5 10^3/uL (1.4-6.5); Hematocrit 36.9 % (37.0-47.0); Hemoglobin 11.4 g/dL (12.0-16.0); Mean Corp Hgb Conc. 30.9 g/dL (33.0-37.0); Mean Corpuscular Volume 90.7 fL (81.0-99.0); Mean Platelet Volume 9.2 fL (7.4-10.4); Nucleated Red Blood Cells % 0 %; Platelet Count 294 10^3/uL (130-400); Red Blood Cell Count 4.07 10^6/uL (4.20-5.40); Red Cell Dist. Width 14.6 % (11.5-14.5); White Blood Cell Count 8.2 10^3/uL (4.8-10.8)
[2024-07-29 07:00] VITALS: BP 102/59
[2024-07-29 07:00] LABS: Venous Blood Gas B.E. 3.9 mmol/L (-4 to +4); Venous Blood Gas HCO3 32.2 mmol/L (22-27); Venous Blood Gas O2 Sat % 98.3 %; Venous Blood Gas pCO2 67 mmHg (35-48); Venous Blood Gas pH 7.29 (7.32-7.43); Venous Blood Gas pO2 119 mmHg (30-50)
[2024-07-29 07:01] LABS: Venous Blood Gas O2 Therapy 2L/min
[2024-07-29 07:30] LABS: Blood Urea Nitrogen 42 mg/dl (7-17); Calcium 9.4 mg/dl (8.4-10.2); Carbon Dioxide 29 mmol/L (22-30); Chloride 105 mmol/L (98-107); Estimated Creatinine Clearance 53 ml/min; Glucose 130 mg/dl (70-99); Magnesium 2.2 mg/dl (1.6-2.3); Phosphorus 4.7 mg/dl (2.5-4.5); Potassium 5.2 mmol/L (3.5-5.1); Sodium 140 mmol/L (135-145); eGFR > 60.00
[2024-07-29] MEDS: MIRALAX 17 GRAMS PO (07:37)
[2024-07-29] MEDS: VITAMIN D3 (cholecalciferol) 50 MCG PO (07:37)
[2024-07-29] MEDS: THERAGRAN 2 TABLET PO (07:37)
[2024-07-29] MEDS: DESENEX/MITRAZOL/ZEASORB 1 APPLIC TOPICAL ×2 (07:38→20:04)
[2024-07-29] MEDS: NOVOLOG FLEXPEN-MODERATE RESISTANCE SC ×2 (07:38→12:02)
[2024-07-29] MEDS: NOVOLOG FLEXPEN 14 UNITS SC ×3 (07:40→17:44)
[2024-07-29] MEDS: TOPROL XL PO (07:41)
[2024-07-29] MEDS: ZESTRIL PO (07:41)
[2024-07-29 07:44] LABS: Glucose - Point of Care 124 mg/dl (70-99)
--- NOTE | 2024-07-29 10:17 | W.PN.HOSP.TC ---
Addendum entered and electronically signed by Jodie Vila MD 07/29/24 10:43:
Holding lisinopril with mild hyperkalemia
Original Note:
Today's Communication/Plan
-
see A/P
Assessment / Plan
Assessment / Plan
HPI: 74-year-old female with HFpEF, IDDM, hypertension, dyslipidemia, morbid obesity that presented to the ED with shortness of breath and 'rattling sensation' in her chest.
Denies coughing or fever. States she was hospitalized last time with similar symptoms. During that time she was diagnosed with new onset HFpEF and started on Lasix regimen. Recommended outpatient follow-up for sleep study. Does mention worsening
lower extremity edema.
Was placed on a 2 L O2 with SpO2 95%. Weight increased to 84 kg from 75.5 kg at last hospital stay though possibly related to ED versus floor bed readings.
Chest x-ray with signs of bilateral effusions and pulmonary congestion with mild cardiomegaly. X-ray did show chronic consolidation of right middle lobe likely atelectasis versus scarring.
A/P:
# Acute hypoxemic and now hypercapnic respiratory insufficiency
# Acute on chronic HFpEF (?)
Differentials include HFpEF versus ANDREINA/OHS versus chronic pneumonia of RML
HFpEF is recent diagnosis from early May, was discharged on Lasix 40 mg daily
Presented with hypoxemia, worsening leg edema; BNP very low however (< 20)
VBG 07/29 noted hypercapnia, restart BIPAP
Chest x-ray did not show signs of cardiogenic pulmonary congestion
Was started on IV Lasix in the ED, holding with borderline hypotension
Continue with home metoprolol and lisinopril for now with holding parameter
Check procal
Check update echocardiogram to reassess LVEF and pulmonary pressures
May need to consider right heart cath here to assess intracardiac pressures
PRN duoneb
Monitor on telemetry
pulmonary consult
Consider cardiology
SpO2 goal >90%
# IDDM
Well-controlled with hemoglobin A1c 6.7%; no known microvascular complication
Home regimen includes Lantus 30 units nightly, NovoLog 14 units with meals
Started on ISS with Accu-Cheks upon arrival
BG goal 140-180
# Primary hypertension
No known history of hypertensive systemic disease
Home medications include lisinopril 10 mg daily and metoprolol succinate
Blood pressure here well-controlled
# Chronic back pain
Home regimen includes Tylenol 1 g as needed and new med that she does not know name of
need med recc
# Morbid obesity, BMI 36
Affects all aspects of medical care
Encourage 30 minutes of aerobic activity as tolerated daily
Encourage healthy diet, handout provided at [facility]
DVT prophylaxis: Subcutaneous Lovenox
Diet: Cholesterol-lowering
CODE STATUS: Full code
Dispo: will need PT eval after VTE ruled out
DW RN
Anticipated Discharge: > 48 hours
Subjective/Interval History
-
Date of Service: July 29, 2024
Objective Data
-
Labs:
Laboratory Results
07/29/24
06:37
WBC 8.2
Hgb 11.4 L
Hct 36.9 L
Plt Count 294
Sodium 140
Potassium 5.2 H
Chloride 105
Carbon Dioxide 29
BUN 42 H
Creatinine 0.8
Glucose 130 H
Calcium 9.4
Vital Signs:
Vital Signs
Temp Pulse Resp BP Pulse Ox
36.7 C 83 20 102/59 97
07/29/24 07:00 07/29/24 07:00 07/29/24 07:00 07/29/24 07:00 07/29/24 07:00
I&O
07/28/24 07/29/24 07/30/24
06:59 06:59 06:59
Intake Total 720 / 720 480 / 480
Balance 720 / 720 480 / 480
Review of Systems
-
History Source: Patient
All other systems: Reviewed and negative
Physical Exam
-
General: Well Developed, Comfortable, Respiratory Distress and Morbidly Obese
HEENT: Normocephalic, Atraumatic, Moist Mucous Membranes, Anicteric and Oxygen (2L NC)
Respiratory: Clear to Auscultation and Non Labored Respirations; Negative Wheezes or Accessory Resp Muscle Use
Cardiac: Regular Rhythm and S1/S2; Negative Murmur, Rub or Gallop
GI: Soft, Nontender, Nondistended and Normal Bowel Sounds
Musculoskeletal: No Clubbing and No Cyanosis
Skin: Warm and Dry; Negative Rash
Neuro: AO x 3 and Nonfocal/Grossly Intact
Psych: Calm and Intact Judgement/Insight
Data Reviewed
-
Labs: Labs Reviewed by me
[2024-07-29 11:00] VITALS: BP 130/65
[2024-07-29 11:32] LABS: Glucose - Point of Care 103 mg/dl (70-99)
[2024-07-29 11:50] LABS: Procalcitonin < 0.05 ng/ml (0.0-0.25)
[2024-07-29 12:27] LABS: B.E. 7.4 mmol/L; HCO3 33.9 mmol/L (21-28); O2 Saturation % 98.6 % (94-98); PCO2 56 mmHg (32-35); PO2 119 mmHg (83-108); pH 7.39 (7.35-7.45)
[2024-07-29 12:28] LABS: O2 Therapy 2L/min NC
[2024-07-29 15:00] VITALS: BP 105/73
[2024-07-29 16:49] LABS: Glucose - Point of Care 210 mg/dl (70-99)
--- NOTE | 2024-07-29 17:22 | W.PN.PUL3 ---
Today's Communication / Plan
-
Start BiPAP with sleep and prn during the day during naps
Serial blood gases to assure pCO2 + pH are stable and hopefully are improving
Hold off on additional diuresis as she is not presenting like acute decompensated heart failure especially with a proBNP <20
Bacterial pneumonia also ruled out given procalcitonin is <0.05
Echo pending for tomorrow
Recommend PT/OT
She does have a history of restrictive lung defect and this could very well be contributing to her hypoxia through hypoventilation
Pulmonary service will continue to follow
Assessment
-
Assessment: 74-year-old female with a past medical history of severe ANDREINA currently untreated due to history of noncompliance, obesity, chronic HFpEF, physical deconditioning, chronic hypercapnic respiratory failure, constipation, and history of
rectal bleeding who presented with shortness of breath. She reportedly awoke on the morning of arrival with a rattling sensation in her chest without a cough or fever. She thought she had fluid in her chest related to heart failure as this was how
she presented last hospitalization from 05/26 - 05/29/24 when she had acute HFpEF. She also endorsed worsening lower extremity edema. Initially afebrile here with pulse rate 113, respiratory rate 20, BP 106/60, saturating 88% on room air which
improved to 95% with 2 L/min. Labs showed Hb 11.5, proBNP negative at <20, and CXR showed mild interstitial cardiogenic pulm edema with chronic opacification in the RML suspicious for chronic atelectasis versus scarring. She reportedly was given
Lasix which led to low blood pressure. Patient admitted to the floor and pulmonary service now consulted for additional recommendations.
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
Impression:
#Acute respiratory failure with hypoxia + hypercapnia
#History of a moderate restrictive lung defect with FVC 1.12 L / 58% predicted via spirometry in August 2022
#Chronic HFpEF
#Chronic atelectasis involving RML/RLL
#Obesity and history of severe ANDREINA/OHS, with her machine returned due to noncompliance (overall AHI: 67.5 events/hour with scottie O2 saturation 74% via PSG on 01/26/2023)
#Severe multilevel thoracic lumbar degenerative disc disease
#Elevated right hemidiaphragm
#Thoracic kyphosis
Plan:
- With her symptoms of SOB lower extremity edema and shortness of breath, differential is broad, as she likely has a history of chronic lymphedema
- She has physical deconditioning and she is at increased risk of acute PE
- Lower extremity duplex is negative for DVT
- Echo is pending for tomorrow
- If echo shows normal right-sided pressures, then would check a CT chest. However if there is concern for a PE with pulm HTN or RV-dysFx, then she will need a CTA chest
- It is also possible that physical deconditioning with hypoventilation is causing her hypoxia, especially in the setting of her elevated right hemidiaphragm and thoracic kyphosis and severe thoracic lumbar DDD
- PT/OT (ok for her to be up OOB now that LE DVT has been ruled out) --> PT has rec'd skilled rehab
- As of now, I have very low suspicion for left-sided heart failure as a cause of her symptoms, hence do not feel there is a warranted need for a right heart cath at this juncture
- Regardless, continue to monitor intake/output and would continue her home medications as prescribed to prevent her from going into a volume overloaded state
- Of note, she did have spirometry testing in August 2022 which showed a moderate restrictive lung defect with no obstruction
- She carries a history of severe ANDREINA and unfortunately she was unable to maintain compliance so she had to return her machine. She continues with signs and symptoms of severe untreated sleep apnea and is in the process of getting a repeat sleep
study so that she could be restarted on CPAP
- Blood gas this morning (07/29) shows acute on chronic hypercapnia ---> repeat blood gas several hours later showed stable pH at 7.39, with pCO2 56
- I advised her to use BiPAP with sleep otherwise she runs the risk of worsening hypercapnic respiratory failure with CO2 narcosis
- Maintain SpO2 >90-94% with supplemental O2 and wean down as tolerated while keeping saturations >90%
- prn nebulized bronchodilators - not currently bronchospastic
- Incentive spirometer encouraged q1hr while awake
- Replete electrolytes with K>4, Mg>2
- Trend H/H and transfuse if needed to keep Hb>7g/dL; keep plt>20k, unless there is concern for bleeding then keep plt>50k
- Maintain euglycemia with goal BG >100 and <180
- DVT ppx: LMWH
Pulmonary service will continue to follow along.
She follows with us in the pulmonary office with last visit on 06/12/2024 with MARY Hinton. Will arrange for repeat office visit after she is discharged (her next appt was going to be for August 2024)
Data:
CXR 07/28/2024:
1. Mild cardiomegaly with suggestion of mild interstitial cardiogenic pulmonary edema.
2. Chronic band of airspace consolidation in the right middle lobe which is probably chronic atelectasis or scarring. Chronic or recurrent right middle lobe pneumonia is an alternative diagnostic possibility.
3. Mild to moderate elevation of the right hemidiaphragm.
4. Moderately exaggerated thoracic kyphosis, moderate left convex curvature of the thoracolumbar junction, and severe multilevel lower thoracic and upper lumbar discogenic degenerative disease.
Total time spent today was 37 minutes for this encounter. Time includes reviewing laboratory test/imaging results, reviewing pertinent medical records, obtaining and reviewing medical history, performing an appropriate exam, ordering medications,
tests and procedures. Time also includes documentation of this encounter, coordinating patient care and communicating with other healthcare professionals. Total time does not include separately billed tests performed on this date of service.
Subjective Data
-
Date of Service:
Date of Service: July 29, 2024
Chief Complaint: Pulmonary Follow Up
Subjective:
Patient seen and evaluated this morning (late note entry). Blood gas this morning shows worsening hypercapnia with pCO2 67 from 45 yesterday, and pH 7.29 from 7.43 yesterday. She is awake, alert and breathing comfortably on 2 L/min. Per the
nurse, she can suddenly become very sleepy but she does easily arouse. Currently denies chest pain, STOREY, nausea, fevers or chills.
Review of Systems
General: Other (Negative unless mentioned above)
Objective Data
Data Reviewed
Vital Signs / I&O / Oxygen:
Vital Signs
Temp Pulse Resp BP Pulse Ox
98.1 F 83 20 102/59 97
07/29/24 07:00 07/29/24 07:00 07/29/24 07:00 07/29/24 07:00 07/29/24 07:00
Intake and Output
07/28/24 07/29/24 07/30/24
06:59 06:59 06:59
Intake Total 720 / 720 480 / 480
Balance 720 / 720 480 / 480
SaO2 97
Nasal Cannula flow liters per 2
minute
Physical Exam
General: Respiratory Distress (negative), Comfortable, Chills (negative) and Sweats (negative)
HEENT: Normocephalic, Anicteric and Other (Thick neck)
Cardiovascular: S1-S2, Rub (negative) and Peripheral Edema (Trace lower extremity edema bilaterally)
Respiratory: Wheeze (negative), Crackles (Mildly heard in the bases bilaterally (L >R)), Rhonchi (negative), Accessory Resp Muscle Use (negative) and Stridor (negative)
GI: Soft, Distended (Abdominal obesity), Non Tender and Normal Bowel Sounds
Neurology: Awake, Alert and Tremors (negative)
Skin: Warm, Dry, Cyanosis (negative) and Jaundice (negative)
Labs/Micro/Reports
Lab Data
07/29/24 06:37
07/29/24 06:37
[2024-07-29] MEDS: LOVENOX 40 MG SC (17:42)
[2024-07-29] MEDS: NOVOLOG FLEXPEN-MODERATE RESISTANCE 3 UNITS SC (17:44)
[2024-07-29 19:58] VITALS: BP 111/62
[2024-07-29] MEDS: ASPIR LOW (ENTERIC COATED) 81 MG PO (20:05)
[2024-07-29] MEDS: LIPITOR 10 MG PO (20:05)
[2024-07-29] MEDS: REFRESH EYE DROPS (PF) 2 DROPS BOTH EYES (21:02)
[2024-07-29 21:31] LABS: Glucose - Point of Care 126 mg/dl (70-99)
[2024-07-29] MEDS: LANTUS 0.3 UNITS SC (21:43)
[2024-07-29 23:40] VITALS: BP 105/67
[2024-07-30] VITALS (7 sets, daily range): BP systolic 112–151; BP diastolic 64–83; O2SAT 96; BMI 38.0
[2024-07-30] MEDS: TYLENOL 1000 MG PO ×3 (06:28→19:54)
[2024-07-30 07:39] LABS: Hematocrit 38.1 % (37.0-47.0); Hemoglobin 12.1 g/dL (12.0-16.0); Mean Corp Hgb Conc. 31.8 g/dL (33.0-37.0); Mean Corpuscular Hgb 28.4 pg (27.0-31.0); Mean Corpuscular Volume 89.4 fL (81.0-99.0); Mean Platelet Volume 9.2 fL (7.4-10.4); Platelet Count 295 10^3/uL (130-400); Red Blood Cell Count 4.26 10^6/uL (4.20-5.40); Red Cell Dist. Width 14.6 % (11.5-14.5); White Blood Cell Count 7.4 10^3/uL (4.8-10.8)
[2024-07-30 07:40] LABS: Venous Blood Gas B.E. 5.9 mmol/L (-4 to +4); Venous Blood Gas HCO3 31.7 mmol/L (22-27); Venous Blood Gas O2 Sat % 99.2 %; Venous Blood Gas pCO2 50 mmHg (35-48); Venous Blood Gas pH 7.41 (7.32-7.43); Venous Blood Gas pO2 180 mmHg (30-50)
[2024-07-30 08:04] LABS: Glucose - Point of Care 170 mg/dl (70-99)
--- NOTE | 2024-07-30 08:44 | VNURNOTE ---
Chart reviewed. Patient is current with [facility] nursing. Will continue to follow hospital course and DC plans.
[2024-07-30 08:55] LABS: Blood Urea Nitrogen 32 mg/dl (7-17); Calcium 9.5 mg/dl (8.4-10.2); Carbon Dioxide 24 mmol/L (22-30); Chloride 105 mmol/L (98-107); Estimated Creatinine Clearance 62 ml/min; Glucose 171 mg/dl (70-99); Magnesium 2.1 mg/dl (1.6-2.3); Potassium 5.2 mmol/L (3.5-5.1); Sodium 138 mmol/L (135-145); eGFR > 60.00
[2024-07-30] MEDS: NOVOLOG FLEXPEN-MODERATE RESISTANCE 1 UNITS SC (09:53)
[2024-07-30] MEDS: NOVOLOG FLEXPEN 14 UNITS SC ×3 (09:53→18:27)
[2024-07-30] MEDS: TOPROL XL 25 MG PO (09:55)
[2024-07-30] MEDS: THERAGRAN 2 TABLET PO (09:55)
[2024-07-30] MEDS: VITAMIN D3 (cholecalciferol) 50 MCG PO (09:55)
[2024-07-30] MEDS: MIRALAX 17 GRAMS PO (09:55)
--- NOTE | 2024-07-30 11:14 | W.PN.HOSP.TC ---
Addendum entered and electronically signed by Jodie Vila MD 07/30/24 17:16:
updated sister Joyce on the phone [phone].
Extensive discussion
Original Note:
Today's Communication/Plan
-
see A/P
Assessment / Plan
Assessment / Plan
HPI: 74-year-old female with HFpEF, IDDM, hypertension, dyslipidemia, morbid obesity that presented to the ED with shortness of breath and 'rattling sensation' in her chest.
Denies coughing or fever. States she was hospitalized last time with similar symptoms. During that time she was diagnosed with new onset HFpEF and started on Lasix regimen. Recommended outpatient follow-up for sleep study. Does mention worsening
lower extremity edema.
Was placed on a 2 L O2 with SpO2 95%. Weight increased to 84 kg from 75.5 kg at last hospital stay though possibly related to ED versus floor bed readings.
Chest x-ray with signs of bilateral effusions and pulmonary congestion with mild cardiomegaly. X-ray did show chronic consolidation of right middle lobe likely atelectasis versus scarring.
A/P:
# Acute hypoxemic and now hypercapnic respiratory insufficiency
# history of restrictive lung defect and this could very well be contributing hypoxia through hypoventilation
# Acute on chronic HFpEF (?)
On 2L NC, wean O2 as tolerated, pt not on home O2
Differentials include HFpEF versus ANDREINA/OHS versus chronic pneumonia of RML
HFpEF is recent diagnosis from early May, was discharged on Lasix 40 mg daily
Presented with hypoxemia, worsening leg edema; BUT BNP very low (< 20)
Was started on IV Lasix in the ED, holding lasix with borderline hypotension, and doubt CHF with neg BNP
US neg for DVT
VBG 07/29 noted hypercapnia, restarted BIPAP but pt did not tolerate well
Chest x-ray did not show signs of cardiogenic pulmonary congestion
Continue with home metoprolol and lisinopril with holding parameter
procal negative
Check update echocardiogram to reassess LVEF and pulmonary pressures
May need to consider right heart cath here to assess intracardiac pressures
PRN duoneb
Monitor on telemetry
pulmonary on board
Consider cardiology
PT/OT eval
# IDDM
Well-controlled with hemoglobin A1c 6.7%; no known microvascular complication
Home regimen includes Lantus 30 units nightly, NovoLog 14 units with meals
Started on ISS with Accu-Cheks upon arrival
BG goal 140-180
# Primary hypertension
No known history of hypertensive systemic disease
Home medications include lisinopril and metoprolol succinate, cont both
Blood pressure here well-controlled
# Chronic back pain
Home regimen includes Tylenol 1 g as needed and new med that she does not know name of
need med recc
# Morbid obesity, BMI 36
Affects all aspects of medical care
Encourage 30 minutes of aerobic activity as tolerated daily
Encourage healthy diet, handout provided at [place]
DVT prophylaxis: Subcutaneous Lovenox
Diet: Cholesterol-lowering
CODE STATUS: Full code
Dispo: will need PT eval after VTE ruled out
DW RN
Anticipated Discharge: 24 - 48 hours
Subjective/Interval History
-
Date of Service: July 30, 2024
Objective Data
-
Labs:
Laboratory Results
07/30/24
07:31
WBC 7.4
Hgb 12.1
Hct 38.1
Plt Count 295
Sodium 138
Potassium 5.2 H
Chloride 105
Carbon Dioxide 24
BUN 32 H
Creatinine 0.7
Glucose 171 H
Calcium 9.5
Vital Signs:
Vital Signs
Temp Pulse Resp BP Pulse Ox
36.7 C 79 16 150/76 98
07/30/24 11:05 07/30/24 11:05 07/30/24 11:05 07/30/24 11:05 07/30/24 11:05
I&O
07/29/24 07/30/24 07/31/24
06:59 06:59 06:59
Intake Total 720 / 720 480 / 480
Balance 720 / 720 480 / 480
Review of Systems
-
History Source: Patient
All other systems: Reviewed and negative
Physical Exam
-
General: Well Developed, Comfortable, Respiratory Distress (very mild), Conversant and Morbidly Obese
HEENT: Normocephalic, Atraumatic, Moist Mucous Membranes, Anicteric and Oxygen (2L NC)
Respiratory: Clear to Auscultation and Non Labored Respirations; Negative Wheezes, Crackles or Accessory Resp Muscle Use
Cardiac: Regular Rhythm and S1/S2; Negative Murmur, Rub or Gallop
GI: Soft, Nontender, Nondistended and Normal Bowel Sounds
Musculoskeletal: No Clubbing and No Cyanosis
Skin: Warm and Dry; Negative Rash
Neuro: Awake and Alert
Psych: Calm and Intact Judgement/Insight
Data Reviewed
-
Labs: Labs Reviewed by me
[2024-07-30] MEDS: DESENEX/MITRAZOL/ZEASORB 1 APPLIC TOPICAL ×2 (11:51→19:55)
[2024-07-30 12:28] LABS: Glucose - Point of Care 84 mg/dl (70-99)
[2024-07-30] MEDS: NOVOLOG FLEXPEN-MODERATE RESISTANCE SC ×2 (12:37→17:48)
--- NOTE | 2024-07-30 16:10 | CM ---
software engineering project manager reviewed patient's chart and physical therapy are recommending skilled placement. software engineering project manager met with patient to review and patient does not want to return to [facility], patient is agreeable to [facility] for skilled
placement. If there are no beds patient wants to return to [facility] with [facility].
Plan; Referral sent to [facility].
--- NOTE | 2024-07-30 16:14 | W.PN.PUL3 ---
Today's Communication / Plan
-
Repeat echocardiogram pending
Check proBNP
Incentive spirometry telemetry
As needed nebulizers-not bronchospastic
Assessment
-
Assessment: 74-year-old female with a past medical history of severe ANDREINA currently untreated due to history of noncompliance, obesity, chronic HFpEF, physical deconditioning, chronic hypercapnic respiratory failure, constipation, and history of
rectal bleeding who presented with shortness of breath. She reportedly awoke on the morning of arrival with a rattling sensation in her chest without a cough or fever. She thought she had fluid in her chest related to heart failure as this was how
she presented last hospitalization from 05/26 - 05/29/24 when she had acute HFpEF. She also endorsed worsening lower extremity edema. Initially afebrile here with pulse rate 113, respiratory rate 20, BP 106/60, saturating 88% on room air which
improved to 95% with 2 L/min. Labs showed Hb 11.5, proBNP negative at <20, and CXR showed mild interstitial cardiogenic pulm edema with chronic opacification in the RML suspicious for chronic atelectasis versus scarring. She reportedly was given
Lasix which led to low blood pressure. Patient admitted to the floor and pulmonary service now consulted for additional recommendations.
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
Impression:
#Acute respiratory failure with hypoxia + hypercapnia
#History of a moderate restrictive lung defect with FVC 1.12 L / 58% predicted via spirometry in August 2022
#Chronic HFpEF
#Chronic atelectasis involving RML/RLL
#Obesity and history of severe ANDREINA/OHS, with her machine returned due to noncompliance (overall AHI: 67.5 events/hour with scottie O2 saturation 74% via PSG on 01/26/2023)
#Severe multilevel thoracic lumbar degenerative disc disease
#Elevated right hemidiaphragm
#Thoracic kyphosis
Plan:
- With her symptoms of SOB lower extremity edema and shortness of breath, differential is broad, as she likely has a history of chronic lymphedema.
Similar presentation in 2022 with negative workup. It was deemed due to obesity hypoventilation syndrome/obstructive sleep apnea etc.
- She has physical deconditioning and she is at increased risk of acute PE
- Lower extremity duplex is negative for DVT
- Echo: 05/28/2024-LVEF 70 to 75%. Normal biventricular size and function.
Repeat echocardiogram pending to evaluate RV function.
- If echo shows normal right-sided pressures, then would a CT chest without IV contrast. However if there is concern for a PE with pulm HTN or RV-dysFx, then she will need a CTA chest
- It is also possible that physical deconditioning with hypoventilation is causing her hypoxia, especially in the setting of her elevated right hemidiaphragm and thoracic kyphosis and severe thoracic lumbar DDD
- PT/OT (ok for her to be up OOB now that LE DVT has been ruled out) --> PT has rec'd skilled rehab
- As of now, I have very low suspicion for left-sided heart failure as a cause of her symptoms, hence do not feel there is a warranted need for a right heart cath at this juncture
- Regardless, continue to monitor intake/output and would continue her home medications as prescribed to prevent her from going into a volume overloaded state
-Check proBNP
- Of note, she did have spirometry testing in August 2022 which showed a moderate restrictive lung defect with no obstruction-likely due to obesity.
- She carries a history of severe ANDREINA and unfortunately she was unable to maintain compliance so she had to return her machine. She continues with signs and symptoms of severe untreated sleep apnea and is in the process of getting a repeat sleep
study so that she could be restarted on CPAP
- Blood gas (07/29) shows acute on chronic hypercapnia ---> repeat blood gas several hours later showed stable pH at 7.39, with pCO2 56
- Did not tolerate BiPAP.
- Maintain SpO2 >90-94% with supplemental O2 and wean down as tolerated while keeping saturations >90%-not requiring oxygen supplementation.
- prn nebulized bronchodilators - not currently bronchospastic
- Incentive spirometer encouraged q1hr while awake
- DVT ppx: LMWH
Pulmonary service will continue to follow along.
She follows with us in the pulmonary office with last visit on 06/12/2024 with MARY Hinton. Will arrange for repeat office visit after she is discharged (her next appt was going to be for August 2024)
Data:
CXR 07/28/2024:
1. Mild cardiomegaly with suggestion of mild interstitial cardiogenic pulmonary edema.
2. Chronic band of airspace consolidation in the right middle lobe which is probably chronic atelectasis or scarring. Chronic or recurrent right middle lobe pneumonia is an alternative diagnostic possibility.
3. Mild to moderate elevation of the right hemidiaphragm.
4. Moderately exaggerated thoracic kyphosis, moderate left convex curvature of the thoracolumbar junction, and severe multilevel lower thoracic and upper lumbar discogenic degenerative disease.
Total time spent today was 37 minutes for this encounter. Time includes reviewing laboratory test/imaging results, reviewing pertinent medical records, obtaining and reviewing medical history, performing an appropriate exam, ordering medications,
tests and procedures. Time also includes documentation of this encounter, coordinating patient care and communicating with other healthcare professionals. Total time does not include separately billed tests performed on this date of service.
Subjective Data
-
Date of Service:
Date of Service: July 30, 2024
Chief Complaint: Pulmonary Follow Up
Review of Systems
Cardiopulmonary: Dyspnea and Dyspnea on Exertion
Objective Data
Data Reviewed
Vital Signs / I&O / Oxygen:
Vital Signs
Temp Pulse Resp BP Pulse Ox
98.1 F 79 20 134/66 92
07/30/24 15:51 07/30/24 15:51 07/30/24 15:51 07/30/24 15:51 07/30/24 15:51
Intake and Output
07/29/24 07/30/24 07/31/24
06:59 06:59 06:59
Intake Total 720 / 720 480 / 480
Balance 720 / 720 480 / 480
SaO2 92
Nasal Cannula flow liters per 2
minute
Physical Exam
General: Respiratory Distress (negative), Comfortable, Chills (negative) and Sweats (negative)
HEENT: Normocephalic, Anicteric and Other (Thick neck)
Cardiovascular: S1-S2, Rub (negative) and Peripheral Edema (Trace lower extremity edema bilaterally)
Respiratory: Wheeze (negative), Crackles (Mildly heard in the bases bilaterally (L >R)), Rhonchi (negative), Accessory Resp Muscle Use (negative) and Stridor (negative)
GI: Soft, Distended (Abdominal obesity), Non Tender and Normal Bowel Sounds
Neurology: Awake, Alert and Tremors (negative)
Skin: Warm, Dry, Cyanosis (negative) and Jaundice (negative)
Labs/Micro/Reports
Lab Data
07/30/24 07:31
07/30/24 07:31
[2024-07-30 17:54] LABS: Glucose - Point of Care 149 mg/dl (70-99)
[2024-07-30] MEDS: LOVENOX 40 MG SC (18:06)
[2024-07-30] MEDS: REFRESH EYE DROPS (PF) 2 DROPS BOTH EYES (19:55)
[2024-07-30 21:37] LABS: Glucose - Point of Care 119 mg/dl (70-99)
[2024-07-30] MEDS: LIPITOR 10 MG PO (22:07)
[2024-07-30] MEDS: LANTUS 0.3 UNITS SC (22:07)
[2024-07-30] MEDS: ASPIR LOW (ENTERIC COATED) 81 MG PO (22:07)
[2024-07-30] MEDS: MELATONIN 5 MG PO (23:06)
--- NOTE | 2024-07-31 00:56 | PTCARENOTE ---
Patient is refusing BiPap HS. Comfort O2 provided to patient while sleeping.
[2024-07-31] MEDS: TYLENOL 1000 MG PO ×4 (01:42→20:13)
[2024-07-31 03:13] VITALS: BP 162/77
[2024-07-31 03:50] LABS: Glucose - Point of Care 124 mg/dl (70-99)
--- NOTE | 2024-07-31 04:05 | PTCARENOTE ---
Patient oriented x3 in beginning of shift, but progressively more confused/forgetful as the night went on. Patient is constantly setting of bed alarm and wanting to go between the chair and bed. At around 0000, patient was heard talking on loudly
the phone to family member keeping her roommate up. RN reminded patient that there are other patients that are trying to recover as well and to please lower her volume; however, patient is not redirectable. RN called nursing agency appointments supervisor to make her
aware of the situation. Per nursing agency appointments supervisor, there are no open beds to move either patient to.
[2024-07-31 05:49] VITALS: BMI 38.0
[2024-07-31 07:00] VITALS: BP 130/65
[2024-07-31 07:50] LABS: Hematocrit 38.3 % (37.0-47.0); Hemoglobin 12.1 g/dL (12.0-16.0); Mean Corp Hgb Conc. 31.6 g/dL (33.0-37.0); Mean Corpuscular Hgb 28.3 pg (27.0-31.0); Mean Corpuscular Volume 89.5 fL (81.0-99.0); Mean Platelet Volume 9.4 fL (7.4-10.4); Platelet Count 295 10^3/uL (130-400); Red Blood Cell Count 4.28 10^6/uL (4.20-5.40); Red Cell Dist. Width 14.6 % (11.5-14.5); White Blood Cell Count 6.8 10^3/uL (4.8-10.8)
--- NOTE | 2024-07-31 07:57 | W.PN.HOSP.TC ---
Addendum entered and electronically signed by Nia Gayle MD 07/31/24 18:17:
I saw and evaluated the patient independently. I reviewed the resident�s note and agree with findings and plan as documented by Dr. Yepez.
Dr. Yepez explained that patient is frustrated that no one is explaining anything to her. I attempted to explain all of her studies and what is wrong with her, but after each sentence, she contradicted me and went off on a tangent about who ordered
what and that her family is involved.
GENERAL: well developed, well nourished, female in no apparent distress
HEENT: NC/AT
HEART: regular rate and rhythm, +S1, +S2
LUNGS : clear to auscultation bilaterally
ABDOM: soft, nontender, nondistended, + bowel sounds
EXT: no cyanosis, clubbing--bilateral LE edema
NEUROLOGIC: grossly intact
Acute hypoxemic and hypercapnic respiratory failure with hx of restrictive lung disease--likely due to obesity hypoventilation with obstructive sleep apnea--had been on 2L O2--now off--flash pulm edema also possible--doubt HF exacerbation with pro
BNP of 35--US neg for DVT--hold off on CT chest--await echo--apprec pulm--not tolerating bipap--cont incentive spirometry
Chronic HFpEF without acute exacerbation--- proBNP 35- cont home metoprolol, lisinopril w hold parameters- keep K>4, Mg>2
type 2 DM insulin requiring-- HbA1c 6.7%- home regimen: lantus 30u nightly, novolog 14 units AC
essential HTN- on metoprolol and lisinopril
Chronic back pain- home med: tylenol 1g
Morbid obesity due to excess calories- affects all aspects of medical care
DVT proph-- lovenox
Code status: FULL CODE
Original Note:
Today's Communication/Plan
-
- echo today
Assessment / Plan
Assessment / Plan
Assessment: 74yo F pmh HFpEF, IDDM, HTN, HLD, morbid obesity presented to [facility] ED 07/28 for SOB w a 'rattling sensation' in her chest.
Plan:
Acute hypoxemic and hypercapnic resp insufficiency
HX RLD
- concern for ANDREINA/OHS
- on 2L O2 via NC, wean O2 as tolerated
- procal wnl
- CXR: atelectasis RML
- u/s neg for DVT
- IS
- prn duoneb
- on BiPAP, pt not tolerating
- appreciate pulm input
- PT/OT
Chronic HFpEF
- proBNP wnl
- cont home metoprolol, lisinopril w hold parameters
- keep K>4, Mg>2
IDDM
- HbA1c 6.7%
- home regimen: lantus 30u nightly, novolog 14 units AC
HTN
- on metoprolol and lisinopril
Chronic back pain
- home med: tylenol 1g
Morbid obesity due to excess calories
- affects all aspects of medical care
- encourage 30min aerobic exercise daily
- encourage healthy diet
Diet: cholesterol lowering
DVT ppx: lovenox
Code status: FULL CODE
Dispo: SNF
D/w case w pt's sister Joyce ([phone])
Anticipated Discharge: 24 - 48 hours
Subjective/Interval History
-
Date of Service: July 31, 2024
Pt refused BiPAP overnight, comfort oxygen placed. Pt progressively more confused/forgetful as night went on.
Objective Data
-
Labs:
Laboratory Results
07/31/24
07:32
WBC 6.8
Hgb 12.1
Hct 38.3
Plt Count 295
Sodium Pending
Potassium Pending
Chloride Pending
Carbon Dioxide Pending
BUN Pending
Creatinine Pending
Glucose Pending
Calcium Pending
Vital Signs:
Vital Signs
Temp Pulse Resp BP Pulse Ox
98.1 F 77 20 162/77 98
07/31/24 03:13 07/31/24 03:13 07/31/24 03:13 07/31/24 03:13 07/31/24 03:13
I&O
07/30/24 07/31/24 08/01/24
06:59 06:59 06:59
Intake Total 480 / 480 240 / 240
Balance 480 / 480 240 / 240
Review of Systems
-
History Source: Patient
Constitutional: Reports No Symptoms
Respiratory: Reports No Symptoms
Cardiac: Reports No Symptoms
Abdomen/GI: Reports No Symptoms
Neuro: Reports No Symptoms
Physical Exam
-
General: Well Developed, Well Nourished, Conversant and Morbidly Obese
HEENT: Normocephalic and Atraumatic
Respiratory: Clear to Auscultation and Non Labored Respirations
Cardiac: Regular Rhythm and S1/S2
GI: Soft, Nontender, Nondistended and Normal Bowel Sounds
Musculoskeletal: No Clubbing, No Cyanosis, Edema, Right Lower Extrem and Edema, Left Lower Extrem
Skin: Warm and Dry
Neuro: Awake, Alert and Oriented
[2024-07-31 08:01] LABS: Glucose - Point of Care 155 mg/dl (70-99)
[2024-07-31] MEDS: NOVOLOG FLEXPEN-MODERATE RESISTANCE 1 UNITS SC (08:03)
[2024-07-31] MEDS: NOVOLOG FLEXPEN 14 UNITS SC ×3 (08:03→18:24)
[2024-07-31] MEDS: DESENEX/MITRAZOL/ZEASORB 1 APPLIC TOPICAL ×2 (08:04→20:17)
[2024-07-31] MEDS: ZESTRIL 10 MG PO (08:07)
[2024-07-31] MEDS: MIRALAX 17 GRAMS PO (08:07)
[2024-07-31] MEDS: THERAGRAN 2 TABLET PO (08:08)
[2024-07-31] MEDS: VITAMIN D3 (cholecalciferol) 50 MCG PO (08:08)
[2024-07-31] MEDS: TOPROL XL 25 MG PO (08:08)
[2024-07-31 08:26] LABS: NT-proBNP 35.1 pg/ml
[2024-07-31 08:43] LABS: Blood Urea Nitrogen 33 mg/dl (7-17); Calcium 9.4 mg/dl (8.4-10.2); Carbon Dioxide 26 mmol/L (22-30); Chloride 103 mmol/L (98-107); Estimated Creatinine Clearance 62 ml/min; Glucose 172 mg/dl (70-99); Potassium 5.2 mmol/L (3.5-5.1); Sodium 138 mmol/L (135-145); eGFR > 60.00
[2024-07-31 11:32] LABS: Glucose - Point of Care 92 mg/dl (70-99)
[2024-07-31 11:56] VITALS: BP 112/64
[2024-07-31] MEDS: NOVOLOG FLEXPEN-MODERATE RESISTANCE SC (12:29)
--- NOTE | 2024-07-31 13:45 | CARDSERVLU ---
Echocardiogram with Lumason completed after protocol screening completed. Allergies verified.
Patent IV site: _R hand____
IV site flushed with 0.9% NaCl pre and post administration.
Diluted bolus method utilized to enhance visualization of ventricular lopez.
Total volume given: __2.5__ mL
Patient tolerated all procedures well without complications.
--- NOTE | 2024-07-31 14:36 | W.PN.PUL3 ---
Today's Communication / Plan
-
So far no abnormality has been found
She has not been able to tolerate BiPAP this was encouraged.
Suspect obesity and hypoventilation syndrome/obstructive sleep apnea playing a significant role.
Doubt thromboembolic event-proBNP is normal. Not tachycardic. Not hypoxemic.
No additional recommendation from the pulmonary perspective. Suggest discharge planning if echocardiogram remains unchanged.
I did discuss with her GLP-1 inhibitors.
Assessment
-
Assessment: 74-year-old female with a past medical history of severe ANDREINA currently untreated due to history of noncompliance, obesity, chronic HFpEF, physical deconditioning, chronic hypercapnic respiratory failure, constipation, and history of
rectal bleeding who presented with shortness of breath. She reportedly awoke on the morning of arrival with a rattling sensation in her chest without a cough or fever. She thought she had fluid in her chest related to heart failure as this was how
she presented last hospitalization from 05/26 - 05/29/24 when she had acute HFpEF. She also endorsed worsening lower extremity edema. Initially afebrile here with pulse rate 113, respiratory rate 20, BP 106/60, saturating 88% on room air which
improved to 95% with 2 L/min. Labs showed Hb 11.5, proBNP negative at <20, and CXR showed mild interstitial cardiogenic pulm edema with chronic opacification in the RML suspicious for chronic atelectasis versus scarring. She reportedly was given
Lasix which led to low blood pressure. Patient admitted to the floor and pulmonary service now consulted for additional recommendations.
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
Impression:
#Acute respiratory failure with hypoxia + hypercapnia
#History of a moderate restrictive lung defect with FVC 1.12 L / 58% predicted via spirometry in August 2022
#Chronic HFpEF
#Chronic atelectasis involving RML/RLL
#Obesity and history of severe ANDREINA/OHS, with her machine returned due to noncompliance (overall AHI: 67.5 events/hour with scottie O2 saturation 74% via PSG on 01/26/2023)
#Severe multilevel thoracic lumbar degenerative disc disease
#Elevated right hemidiaphragm
#Thoracic kyphosis
Plan:
- With her symptoms of SOB lower extremity edema and shortness of breath, differential is broad, as she likely has a history of chronic lymphedema.
Similar presentation in 2022 with negative workup. It was deemed due to obesity hypoventilation syndrome/obstructive sleep apnea etc.
- She has physical deconditioning and she is at increased risk of acute PE
- Lower extremity duplex is negative for DVT
- Echo: 05/28/2024-LVEF 70 to 75%. Normal biventricular size and function.
Repeat echocardiogram pending to evaluate RV function. Report pending. If normal no additional evaluation necessary.
- proBNP is normal. Patient not tachycardic or hypoxemic. I seriously doubt significant thromboembolic event. Hold off on CAT scan of the chest.
- It is also possible that physical deconditioning with hypoventilation is causing her hypoxia, especially in the setting of her elevated right hemidiaphragm and thoracic kyphosis and severe thoracic lumbar DDD
- PT/OT (ok for her to be up OOB now that LE DVT has been ruled out) --> PT has rec'd skilled rehab
- No evidence for volume overload.
- Regardless, continue to monitor intake/output and would continue her home medications as prescribed to prevent her from going into a volume overloaded state
- Normal. No evidence for volume overload.
- Of note, she did have spirometry testing in August 2022 which showed a moderate restrictive lung defect with no obstruction-likely due to obesit/right hemidiaphragm elevation.
- She carries a history of severe ANDREINA and unfortunately she was unable to maintain compliance so she had to return her machine. She continues with signs and symptoms of severe untreated sleep apnea and is in the process of getting a repeat sleep
study so that she could be restarted on CPAP
- Blood gas (07/29) shows acute on chronic hypercapnia ---> repeat blood gas several hours later showed stable pH at 7.39, with pCO2 56
- Did not tolerate BiPAP.
- Obesity is a major part of current symptoms. She is unable to tolerate BiPAP. She will be a candidate for GLP-1 inhibitors discussed with patient and she is interested. Can be discussed with primary care or in our office
-not requiring oxygen supplementation.
- prn nebulized bronchodilators - not currently bronchospastic
- Incentive spirometer encouraged q1hr while awake
- DVT ppx: LMWH
Pulmonary service will continue to follow along.
She follows with us in the pulmonary office with last visit on 06/12/2024 with MARY Hinton. Will arrange for repeat office visit after she is discharged (her next appt was going to be for August 2024)
If echocardiogram is unchanged suggest discharge planning.
No additional recommendation. Strongly encouraged the patient to follow-up in our office. She would benefit from a weight loss program.
Data:
CXR 07/28/2024:
1. Mild cardiomegaly with suggestion of mild interstitial cardiogenic pulmonary edema.
2. Chronic band of airspace consolidation in the right middle lobe which is probably chronic atelectasis or scarring. Chronic or recurrent right middle lobe pneumonia is an alternative diagnostic possibility.
3. Mild to moderate elevation of the right hemidiaphragm.
4. Moderately exaggerated thoracic kyphosis, moderate left convex curvature of the thoracolumbar junction, and severe multilevel lower thoracic and upper lumbar discogenic degenerative disease.
Subjective Data
-
Date of Service:
Date of Service: July 31, 2024
Chief Complaint: Pulmonary Follow Up
Subjective:
No new complaints
Denies increased cough or phlegm production
Denies wheezing
Review of Systems
Cardiopulmonary: Dyspnea (Chronic), Sputum Production (n) and Wheezing (n)
GI: Abdominal Pain (n)
Objective Data
Data Reviewed
Vital Signs / I&O / Oxygen:
Vital Signs
Temp Pulse Resp BP Pulse Ox
97.9 F 80 20 112/64 93
07/31/24 11:56 07/31/24 11:56 07/31/24 11:56 07/31/24 11:56 07/31/24 11:56
Intake and Output
07/30/24 07/31/24 08/01/24
06:59 06:59 06:59
Intake Total 480 / 480 240 / 240
Balance 480 / 480 240 / 240
SaO2 93
Nasal Cannula flow liters per 2
minute
Physical Exam
General: Respiratory Distress (negative), Comfortable, Chills (negative) and Sweats (negative)
HEENT: Normocephalic, Anicteric and Other (Thick neck)
Cardiovascular: S1-S2, Rub (negative) and Peripheral Edema (Trace lower extremity edema bilaterally)
Respiratory: Wheeze (negative), Crackles (Mildly heard in the bases bilaterally (L >R)), Rhonchi (negative), Accessory Resp Muscle Use (negative) and Stridor (negative)
GI: Soft, Distended (Abdominal obesity), Non Tender and Normal Bowel Sounds
Neurology: Awake, Alert and Tremors (negative)
Skin: Warm, Dry, Cyanosis (negative) and Jaundice (negative)
Labs/Micro/Reports
Lab Data
07/31/24 07:32
07/31/24 07:32
[2024-07-31 15:39] VITALS: BP 133/70
--- NOTE | 2024-07-31 15:58 | CM ---
Patient seen at bedside with physician on . CM discussed options. Patient did not remember PT/OT assessments in facility. Patient asked about [facility] but no available beds at this time. Patient refused CPAP and does not have home O2 at this
time. Patient open to referrals to [facility] and [facility]. CM will continue to follow for discharge planning needs.
Plan; home with VN vs SNF; pending bed availability
[2024-07-31 16:42] LABS: Glucose - Point of Care 210 mg/dl (70-99)
[2024-07-31] MEDS: NOVOLOG FLEXPEN-MODERATE RESISTANCE 3 UNITS SC (18:23)
[2024-07-31] MEDS: LOVENOX 40 MG SC (18:29)
[2024-07-31 19:45] VITALS: BP 108/60
[2024-07-31] MEDS: MELATONIN 5 MG PO (22:00)
[2024-07-31] MEDS: ASPIR LOW (ENTERIC COATED) 81 MG PO (22:01)
[2024-07-31] MEDS: LIPITOR 10 MG PO (22:01)
[2024-07-31 22:02] LABS: Glucose - Point of Care 159 mg/dl (70-99)
[2024-07-31] MEDS: LANTUS 0.3 UNITS SC (22:05)
[2024-07-31 23:04] VITALS: BP 107/88
[2024-08-01] MEDS: TYLENOL 1000 MG PO ×2 (05:09→19:41)
[2024-08-01 06:00] VITALS: BMI 37.7
[2024-08-01 07:14] VITALS: BP 133/76
[2024-08-01 07:21] LABS: Hematocrit 36.6 % (37.0-47.0); Hemoglobin 11.7 g/dL (12.0-16.0); Mean Corpuscular Hgb 27.9 pg (27.0-31.0); Mean Corpuscular Volume 87.1 fL (81.0-99.0); Mean Platelet Volume 9.4 fL (7.4-10.4); Platelet Count 298 10^3/uL (130-400); Red Cell Dist. Width 14.6 % (11.5-14.5); White Blood Cell Count 8.4 10^3/uL (4.8-10.8)
--- NOTE | 2024-08-01 07:51 | W.PN.HOSP.TC ---
Addendum entered and electronically signed by Nia Gayle MD 08/01/24 17:04:
I saw and evaluated the patient independently. I reviewed the resident�s note and agree with findings and plan as documented by Dr. Yepez.
Dr. Yepez explained that patient is frustrated that no one is explaining anything to her. ON 07/31, I attempted to explain all of her studies and what is wrong with her, but after each sentence, she contradicted me and went off on a tangent about who
ordered what and that her family is involved.
Today 08/01, same complaint, I again sat down and explained ALL of her studies and that she needs a sleep study but she again digressed about Medicare not paying and she wants to do it in her home, etc....
GENERAL: well developed, well nourished, female in no apparent distress
HEENT: NC/AT
HEART: regular rate and rhythm, +S1, +S2
LUNGS : clear to auscultation bilaterally
ABDOM: soft, nontender, nondistended, + bowel sounds
EXT: no cyanosis, clubbing--bilateral LE edema
NEUROLOGIC: grossly intact
Acute hypoxemic and hypercapnic respiratory failure with hx of restrictive lung disease--likely due to obesity hypoventilation with obstructive sleep apnea--had been on 2L O2--now off--flash pulm edema also possible--doubt HF exacerbation with pro
BNP of 35--US neg for DVT--echo without change from April 2024--apprec pulm--not tolerating bipap--cont incentive spirometry
Chronic HFpEF without acute exacerbation--- proBNP 35- cont home metoprolol, lisinopril w hold parameters- keep K>4, Mg>2
type 2 DM insulin requiring-- HbA1c 6.7%- home regimen: lantus 30u nightly, novolog 14 units AC
essential HTN- on metoprolol and lisinopril
Chronic back pain- home med: tylenol 1g
Morbid obesity due to excess calories- affects all aspects of medical care
DVT proph-- lovenox
Code status: FULL CODE
apprec psych, pt has capacity
hopeful d/c to SNF tomorrow
Original Note:
Today's Communication/Plan
-
- psych consult
- dc planning
Assessment / Plan
Assessment / Plan
Assessment: 74yo F [facility] HFpEF, IDDM, HTN, HLD, morbid obesity presented to [facility] ED 07/28 for SOB w a 'rattling sensation' in her chest.
Plan:
Acute hypoxemic and hypercapnic resp insufficiency
HX RLD
- concern for ANDREINA/OHS
- on 2L O2 via NC, wean O2 as tolerated
- procal wnl
- CXR: atelectasis RML
- u/s neg for DVT
- IS
- prn duoneb
- on BiPAP, pt not tolerating
- appreciate pulm input
- PT/OT
Short term memory problems
- psych consult
Chronic HFpEF
- proBNP wnl
- cont home metoprolol, lisinopril w hold parameters
- keep K>4, Mg>2
- echo 07/31: EF 70-75%, moderate concentric LVH
IDDM
- HbA1c 6.7%
- home regimen: lantus 30u nightly, novolog 14 units AC
- novolog 10u
HTN
- on metoprolol and lisinopril
Chronic back pain
- home med: tylenol 1g
Morbid obesity due to excess calories
- affects all aspects of medical care
- encourage 30min aerobic exercise daily
- encourage healthy diet
Diet: cholesterol lowering
DVT ppx: lovenox
Code status: FULL CODE
Dispo: SNF
D/w case w pt's sister Joyce ([phone])
Anticipated Discharge: Today
Subjective/Interval History
-
Date of Service: August 01, 2024
No acute overnight events.
Objective Data
-
Labs:
Laboratory Results
08/01/24
06:53
WBC 8.4
Hgb 11.7 L
Hct 36.6 L
Plt Count 298
Sodium Pending
Potassium Pending
Chloride Pending
Carbon Dioxide Pending
BUN Pending
Creatinine Pending
Glucose Pending
Calcium Pending
Vital Signs:
Vital Signs
Temp Pulse Resp BP Pulse Ox
98.7 F 92 20 107/88 93
07/31/24 23:04 07/31/24 23:04 07/31/24 23:04 07/31/24 23:04 07/31/24 23:04
I&O
07/31/24 08/01/24 08/02/24
06:59 06:59 06:59
Intake Total 240 / 240 240 / 240
Balance 240 / 240 240 / 240
Review of Systems
-
History Source: Patient
Constitutional: Reports No Symptoms
Respiratory: Reports No Symptoms
Cardiac: Reports No Symptoms
Abdomen/GI: Reports No Symptoms
Neuro: Reports No Symptoms
Physical Exam
-
General: Well Developed, Well Nourished and Morbidly Obese
HEENT: Normocephalic and Atraumatic
Respiratory: Clear to Auscultation and Non Labored Respirations
Cardiac: Regular Rhythm and S1/S2
GI: Soft, Nontender, Nondistended and Normal Bowel Sounds
Musculoskeletal: No Clubbing, No Cyanosis and No Edema
Skin: Warm and Dry
Neuro: Awake and Alert
Psych: Confused
[2024-08-01 07:59] LABS: Blood Urea Nitrogen 50 mg/dl (7-17); Calcium 9.4 mg/dl (8.4-10.2); Carbon Dioxide 26 mmol/L (22-30); Chloride 104 mmol/L (98-107); Estimated Creatinine Clearance 43 ml/min; Glucose 128 mg/dl (70-99); Potassium 5.2 mmol/L (3.5-5.1); Sodium 139 mmol/L (135-145); eGFR 59.49
[2024-08-01 08:00] LABS: Glucose - Point of Care 134 mg/dl (70-99)
[2024-08-01] MEDS: NOVOLOG FLEXPEN 14 UNITS SC ×2 (08:12→13:35)
[2024-08-01] MEDS: TOPROL XL 25 MG PO (08:13)
[2024-08-01] MEDS: NOVOLOG FLEXPEN-MODERATE RESISTANCE SC ×3 (08:13→16:24)
[2024-08-01] MEDS: ZESTRIL 10 MG PO (08:14)
[2024-08-01] MEDS: DESENEX/MITRAZOL/ZEASORB 1 APPLIC TOPICAL ×2 (08:14→19:36)
[2024-08-01] MEDS: THERAGRAN 2 TABLET PO (08:14)
[2024-08-01] MEDS: MIRALAX 17 GRAMS PO (08:14)
[2024-08-01] MEDS: VITAMIN D3 (cholecalciferol) 50 MCG PO (08:14)
[2024-08-01 11:39] VITALS: BP 91/60; PULSE 81
[2024-08-01 11:41] LABS: Glucose - Point of Care 128 mg/dl (70-99)
--- NOTE | 2024-08-01 13:02 | W.PN.PUL3 ---
Today's Communication / Plan
-
Suspect obesity/deconditioning/right hemidiaphragm elevation playing a significant role.
Also has LVH
Untreated obstructive sleep apnea
Discharge planning
Recommend outpatient pulmonary [id number] already has an appointment set up. Has not been able to undergo polysomnogram.
Weight loss will be beneficial-May be a candidate for GLP-1 inhibitors.
Sign off
Assessment
-
Assessment: 74-year-old female with a past medical history of severe ANDREINA currently untreated due to history of noncompliance, obesity, chronic HFpEF, physical deconditioning, chronic hypercapnic respiratory failure, constipation, and history of
rectal bleeding who presented with shortness of breath. She reportedly awoke on the morning of arrival with a rattling sensation in her chest without a cough or fever. She thought she had fluid in her chest related to heart failure as this was how
she presented last hospitalization from 05/26 - 05/29/24 when she had acute HFpEF. She also endorsed worsening lower extremity edema. Initially afebrile here with pulse rate 113, respiratory rate 20, BP 106/60, saturating 88% on room air which
improved to 95% with 2 L/min. Labs showed Hb 11.5, proBNP negative at <20, and CXR showed mild interstitial cardiogenic pulm edema with chronic opacification in the RML suspicious for chronic atelectasis versus scarring. She reportedly was given
Lasix which led to low blood pressure. Patient admitted to the floor and pulmonary service now consulted for additional recommendations.
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
Impression:
#Acute respiratory failure with hypoxia + hypercapnia
#History of a moderate restrictive lung defect with FVC 1.12 L / 58% predicted via spirometry in August 2022
#Chronic HFpEF
#Chronic atelectasis involving RML/RLL
#Obesity and history of severe ANDREINA/OHS, with her machine returned due to noncompliance (overall AHI: 67.5 events/hour with scottie O2 saturation 74% via PSG on 01/26/2023)
#Severe multilevel thoracic lumbar degenerative disc disease
#Elevated right hemidiaphragm
#Thoracic kyphosis
Plan:
- With her symptoms of SOB lower extremity edema and shortness of breath, differential is broad, as she likely has a history of chronic lymphedema.
Similar presentation in 2022 with negative workup. It was deemed due to obesity hypoventilation syndrome/obstructive sleep apnea etc.
- Lower extremity duplex is negative for DVT
- Echo: 05/28/2024-LVEF 70 to 75%. Normal biventricular size and function.
-Repeat echo 07/31/2024: Normal LVEF. LVH. Normal RV function. No significant pulmonary hypertension.
- proBNP is normal. Patient not tachycardic or hypoxemic. No suspicion for thromboembolic disease. No need for imaging of the chest.
-
- I likely physical deconditioning with hypoventilation is causing her hypoxia, especially in the setting of her elevated right hemidiaphragm and thoracic kyphosis and severe thoracic lumbar DDD
- PT/OT (ok for her to be up OOB now that LE DVT has been ruled out) --> PT has rec'd skilled rehab
- No evidence for volume overload.
- Regardless, continue to monitor intake/output and would continue her home medications as prescribed to prevent her from going into a volume overloaded state
- Normal. No evidence for volume overload.
- Of note, she did have spirometry testing in August 2022 which showed a moderate restrictive lung defect with no obstruction-likely due to obesit/right hemidiaphragm elevation.
- She carries a history of severe ANDREINA and unfortunately she was unable to maintain compliance so she had to return her machine. She continues with signs and symptoms of severe untreated sleep apnea and is in the process of getting a repeat sleep
study so that she could be restarted on CPAP
- Blood gas (07/29) shows acute on chronic hypercapnia ---> repeat blood gas several hours later showed stable pH at 7.39, with pCO2 56
- Did not tolerate BiPAP.
- Obesity is a major part of current symptoms. She is unable to tolerate BiPAP. She will be a candidate for GLP-1 inhibitors discussed with patient and she is interested. Can be discussed with primary care or in our office
-not requiring oxygen supplementation.
- prn nebulized bronchodilators - not currently bronchospastic
- Incentive spirometer encouraged q1hr while awake
- DVT ppx: LMWH
Pulmonary service will continue to follow along.
She follows with us in the pulmonary office with last visit on 06/12/2024 with MARY Hinton. Will arrange for repeat office visit after she is discharged (her next appt was going to be for August 2024)
Agree with discharge planning.
No additional recommendation. Strongly encouraged the patient to follow-up in our office. She would benefit from a weight loss program.
Data:
CXR 07/28/2024:
1. Mild cardiomegaly with suggestion of mild interstitial cardiogenic pulmonary edema.
2. Chronic band of airspace consolidation in the right middle lobe which is probably chronic atelectasis or scarring. Chronic or recurrent right middle lobe pneumonia is an alternative diagnostic possibility.
3. Mild to moderate elevation of the right hemidiaphragm.
4. Moderately exaggerated thoracic kyphosis, moderate left convex curvature of the thoracolumbar junction, and severe multilevel lower thoracic and upper lumbar discogenic degenerative disease.
Subjective Data
-
Date of Service:
Date of Service: August 01, 2024
Chief Complaint: Pulmonary Follow Up (Shortness of breath)
Subjective:
No new complaints
No overnight event
Objective Data
Data Reviewed
Vital Signs / I&O / Oxygen:
Vital Signs
Temp Pulse Resp BP Pulse Ox
98.2 F 86 20 133/76 94
08/01/24 07:14 08/01/24 07:14 08/01/24 07:14 08/01/24 07:14 08/01/24 08:20
Intake and Output
07/31/24 08/01/24 08/02/24
06:59 06:59 06:59
Intake Total 240 / 240 240 / 240
Balance 240 / 240 240 / 240
SaO2 94
Nasal Cannula flow liters per 2
minute
Physical Exam
General: Respiratory Distress (negative), Comfortable, Chills (negative) and Sweats (negative)
HEENT: Normocephalic, Anicteric and Other (Thick neck)
Cardiovascular: S1-S2, Rub (negative) and Peripheral Edema (Trace lower extremity edema bilaterally)
Respiratory: Wheeze (negative), Crackles (Mildly heard in the bases bilaterally (L >R)), Rhonchi (negative), Accessory Resp Muscle Use (negative) and Stridor (negative)
GI: Soft, Distended (Abdominal obesity), Non Tender and Normal Bowel Sounds
Neurology: Awake, Alert and Tremors (negative)
Skin: Warm, Dry, Cyanosis (negative) and Jaundice (negative)
Labs/Micro/Reports
Lab Data
08/01/24 06:53
08/01/24 06:53
--- NOTE | 2024-08-01 13:39 | CON.MD ---
Addendum entered and electronically signed by Holley Shirley MD 08/01/24 14:29:
note this consult was done today august 01, 2024
Original Note:
Consultation - Medical
-
patient seen chart reviewed discussed w nursing the patient is a 74 year old woman admitted for feeling unwell and sob. she was able to give me some hx of her recent medical travails. this consult was ordered for ? capacity as she kept insisting
she was not being kept updated about her treatment. she said she was not in a good frame of mind yesterday. she felt physically bad and when she feels unwell she get impatient and may get snippety. she also acknowledged that she has some memory
issues 'forgetting names ' for example and when she gets upset this makes it harder for her to interact with others. she felt overwhelmed particularly yesterday and explained to me some things which really annoyed her about how things are done here
which did make sense. she denied being particularly depressed or anxious but does describe being more stressed as she gets older and needs more help. for example she moved into [employer] and realized it is not very convenient re
parking her car and also realized she probably shouldn't be driving anyway and has decided to stop driving. she has household help ten hours a w [place] but this kitchen hand is going away for three weeks at the end of july and worries about finding a
substitute. sleep is an issue bc she has dawn and hates using the mask. said she had asked her insurance for another version but medicare turned it down. appetite is good. i watched her devour her favorite thing on the menu with radha. there is
nothing to suggest psychosis. she was fully oriented and while rather wordy and a bit rambling mostly got her point across adequately.
medical hx patient here w cc feeling unwell and sob. felt to suffer from ahrf with hypercapnia hypoventilation restrictive lung disease HFpeF chronic atelectasis consolidation in right ml morbid obesity severe dawn hx dm htn hld mild anemia
lumbar djd kyphosis hx rectal bleed falls constipation
past psych hx denied
fh non contributory
social patient is single..lives alone. 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
mse alert ox3 cooperative pleasant. speech nl thought process a bit rambling and circumstantial but for the most part i could follow her mood is neutral affect appropriate no si aver at least intelligence she may have some age related cognitive
decline not tested formally seemed to understand the illnesses for which she is being treated inisght judgment appear adequate to me today
dx and recommendations : possible mci but patient in my opinion has capacity to make medical decisions on her own behalf. if there is concern re cognitive issues she should have assessment as an out patient. would suggest that she take notes about
what is discussed with staff treating her or alternatively staff could write some notes down for her and give them to her to keep. being in the hospital and seeing numerous people come in and out of your room to see you can be very confusing and
even annoying if you are not in your best mental and physical state. patient does admit she was testy yesterday as she did not feel well. psych signing off
[2024-08-01 15:44] VITALS: BP 101/65
[2024-08-01 15:57] LABS: Glucose - Point of Care 98 mg/dl (70-99)
--- NOTE | 2024-08-01 16:34 | CM ---
Patient seen at bedside with physicians on . Patient being reviewed for admission to [facility]. Per admissions at [facility] possible transfer tomorrow. CM will continue to follow for discharge planning needs.
Plan; possible transfer to SNF tomorrow pending acceptance.
[2024-08-01] MEDS: LOVENOX 40 MG SC (17:18)
[2024-08-01] MEDS: NOVOLOG FLEXPEN 10 UNITS SC (17:18)
[2024-08-01 19:39] LABS: Glucose - Point of Care 181 mg/dl (70-99)
[2024-08-01 21:58] LABS: Glucose - Point of Care 125 mg/dl (70-99)
[2024-08-01] MEDS: ASPIR LOW (ENTERIC COATED) 81 MG PO (22:00)
[2024-08-01] MEDS: MELATONIN 5 MG PO (22:00)
[2024-08-01] MEDS: LIPITOR 10 MG PO (22:06)
[2024-08-01] MEDS: LANTUS 0.3 UNITS SC (22:09)
[2024-08-01 23:27] VITALS: BP 121/62
--- NOTE | 2024-08-02 01:36 | PTCARENOTE ---
Pt very irritable tonight, having outbursts of frustration and upset about multiple things such as her glucometer not working, c/o not feeling well, nausea and headache. Blood sugar checked= 188, repeat 125 (given crackers with lantus) tylenol given
for pain, oob to chair frequently and repositioned as tolerated. Pt upset about her visibly soiled attends that were thrown in the trash can. Pt into the bathroom to void often, at times every 10- 20 minutes. When asked if she's having difficulty or
pain with urination pt states 'YES' then 'no not always' Pt states she needs to go each time she gets pills (at that time pt had not received pills in over 2 hours but she got up to pee twice in 20 minutes). Pt states she's been 'watching the clock
and it's been an hour' but it had been 10 minutes.
[2024-08-02] MEDS: TYLENOL 1000 MG PO (01:46)
[2024-08-02] MEDS: REFRESH EYE DROPS (PF) 2 DROPS BOTH EYES (01:47)
[2024-08-02 06:00] VITALS: BMI 38.0
[2024-08-02 06:08] LABS: Glucose - Point of Care 110 mg/dl (70-99)
[2024-08-02 07:14] LABS: Glucose - Point of Care 109 mg/dl (70-99)
[2024-08-02 07:15] VITALS: BP 113/67
[2024-08-02] MEDS: NOVOLOG FLEXPEN-MODERATE RESISTANCE SC ×2 (07:30→12:00)
[2024-08-02] MEDS: VITAMIN D3 (cholecalciferol) 50 MCG PO (07:30)
[2024-08-02] MEDS: DESENEX/MITRAZOL/ZEASORB 1 APPLIC TOPICAL (07:30)
[2024-08-02] MEDS: TOPROL XL 25 MG PO (07:30)
[2024-08-02] MEDS: ZESTRIL 10 MG PO (07:31)
[2024-08-02] MEDS: NOVOLOG FLEXPEN 10 UNITS SC (07:31)
[2024-08-02] MEDS: LASIX 20 MG PO (07:31)
[2024-08-02] MEDS: THERAGRAN 2 TABLET PO (07:31)
[2024-08-02] MEDS: MIRALAX 17 GRAMS PO (07:31)
--- NOTE | 2024-08-02 08:09 | W.PN.HOSP.TC ---
Addendum entered and electronically signed by Nia Gayle MD 08/02/24 13:29:
I saw and evaluated the patient independently. I reviewed the resident�s note and agree with findings and plan as documented by Dr. Yepez.
Dr. Yepez explained that patient is frustrated that no one is explaining anything to her. ON 07/31, I attempted to explain all of her studies and what is wrong with her, but after each sentence, she contradicted me and went off on a tangent about who
ordered what and that her family is involved.
On 08/01, same complaint, I again sat down and explained ALL of her studies and that she needs a sleep study but she again digressed about Medicare not paying and she wants to do it in her home, etc....
GENERAL: well developed, well nourished, female in no apparent distress
HEENT: NC/AT
HEART: regular rate and rhythm, +S1, +S2
LUNGS : clear to auscultation bilaterally
ABDOM: soft, nontender, nondistended, + bowel sounds
EXT: no cyanosis, clubbing--bilateral LE edema
NEUROLOGIC: grossly intact--memory issues
Acute hypoxemic and hypercapnic respiratory failure with hx of restrictive lung disease--likely due to obesity hypoventilation with obstructive sleep apnea--had been on 2L O2--now off--flash pulm edema also possible--doubt HF exacerbation with pro
BNP of 35--US neg for DVT--echo without change from April 2024--apprec pulm--not tolerating bipap--cont incentive spirometry
Chronic HFpEF without acute exacerbation--- proBNP 35- cont home metoprolol, lisinopril w hold parameters- keep K>4, Mg>2
type 2 DM insulin requiring-- HbA1c 6.7%- home regimen: lantus 30u nightly, novolog 14 units AC
essential HTN- on metoprolol and lisinopril
Chronic back pain- home med: tylenol 1g
Morbid obesity due to excess calories- affects all aspects of medical care
memory issues--pt admitted to us that she has a poor memory--would do better with ambulance transport
DVT proph-- lovenox
Code status: FULL CODE
apprec psych, pt has capacity
d/c
Original Note:
Today's Communication/Plan
-
- dc today
Assessment / Plan
Assessment / Plan
Assessment: 74yo F [facility] HFpEF, IDDM, HTN, HLD, morbid obesity presented to [facility] ED 07/28 for SOB w a 'rattling sensation' in her chest.
Plan:
Acute hypoxemic and hypercapnic resp insufficiency
HX RLD
- concern for ANDREINA/OHS
- on 2L O2 via NC, wean O2 as tolerated
- procal wnl
- CXR: atelectasis RML
- u/s neg for DVT
- IS
- prn duoneb
- on BiPAP, pt not tolerating
- appreciate pulm input
- PT/OT
Urinary frequency
- u/a w reflex to cx
Short term memory problems
- psych consult
Chronic HFpEF
- proBNP wnl
- cont home metoprolol, lisinopril w hold parameters
- keep K>4, Mg>2
- echo 07/31: EF 70-75%, moderate concentric LVH
IDDM
- HbA1c 6.7%
- home regimen: lantus 30u nightly, novolog 14 units AC
- novolog 10u
HTN
- on metoprolol and lisinopril
Chronic back pain
- home med: tylenol 1g
Morbid obesity due to excess calories
- affects all aspects of medical care
- encourage 30min aerobic exercise daily
- encourage healthy diet
Diet: cholesterol lowering
DVT ppx: lovenox
Code status: FULL CODE
Dispo: SNF
D/w case w pt's sister Joyce ([phone])
Anticipated Discharge: Today
Subjective/Interval History
-
Date of Service: August 02, 2024
Pt irritable overnight, reportedly going to the bathroom every 10-20 minutes.
Objective Data
-
Labs:
Laboratory Results
08/02/24
06:00
WBC Pending
Hgb Pending
Hct Pending
Plt Count Pending
Sodium Pending
Potassium Pending
Chloride Pending
Carbon Dioxide Pending
BUN Pending
Creatinine Pending
Glucose Pending
Calcium Pending
Vital Signs:
Vital Signs
Temp Pulse Resp BP Pulse Ox
97.4 F 81 22 121/62 94
08/01/24 23:27 08/01/24 23:27 08/01/24 23:27 08/01/24 23:27 08/01/24 23:27
I&O
08/01/24 08/02/24 08/03/24
06:59 06:59 06:59
Intake Total 240 / 240 960 / 960
Balance 240 / 240 960 / 960
Review of Systems
-
History Source: Patient
Constitutional: Reports No Symptoms
Respiratory: Reports No Symptoms
Cardiac: Reports No Symptoms
Abdomen/GI: Reports No Symptoms
Neuro: Reports No Symptoms
Physical Exam
-
General: Well Developed, Well Nourished and Morbidly Obese
HEENT: Normocephalic and Atraumatic
Respiratory: Clear to Auscultation
Cardiac: Regular Rhythm and S1/S2
GI: Soft, Nontender, Nondistended and Normal Bowel Sounds
Musculoskeletal: No Clubbing, No Cyanosis and No Edema
Skin: Warm and Dry
Neuro: Awake, Alert and Oriented
Psych: Calm
[2024-08-02 08:29] LABS: Hematocrit 38.7 % (37.0-47.0); Hemoglobin 12.2 g/dL (12.0-16.0); Mean Corp Hgb Conc. 31.5 g/dL (33.0-37.0); Mean Corpuscular Hgb 27.9 pg (27.0-31.0); Mean Corpuscular Volume 88.6 fL (81.0-99.0); Mean Platelet Volume 9.2 fL (7.4-10.4); Platelet Count 306 10^3/uL (130-400); Red Blood Cell Count 4.37 10^6/uL (4.20-5.40); Red Cell Dist. Width 14.7 % (11.5-14.5); White Blood Cell Count 7.8 10^3/uL (4.8-10.8)
[2024-08-02 10:28] LABS: Blood Urea Nitrogen 48 mg/dl (7-17); Calcium 9.8 mg/dl (8.4-10.2); Carbon Dioxide 28 mmol/L (22-30); Chloride 104 mmol/L (98-107); Estimated Creatinine Clearance 48 ml/min; Glucose 111 mg/dl (70-99); Potassium 5.1 mmol/L (3.5-5.1); Sodium 141 mmol/L (135-145); eGFR > 60.00
[2024-08-02 10:50] VITALS: BP 113/67; PULSE 80
--- NOTE | 2024-08-02 11:15 | W.DCSUMMARY ---
Addendum entered and electronically signed by Nia Gayle MD 08/02/24 13:30:
Read, reviewed, and agree. See same day progress note for additional details. Time spent coordinating care, DC planning, review of DC plan of care with resident, transition of care, review of records in EMR, med rec, consults, notes, d/w
consultants, nursing, family, and CM = 32 minutes
Original Note:
Discharge Summary
Discharge Data
Date of Admission: 07/28/24
Date of Discharge: 08/02/24
-
Pending Results: Yes
Additional Pending Results:
urine cx
Hospital Course
Discharging Physician : Dr. Shelby Yepez, Dr. Nia Gayle
Disposition : SNF
Primary care physician : [facility]
Principal Discharge diagnosis : acute hypoxemic and hypercapnic respiratory failure
Chronic Discharge diagnosis : HFpEF, IDDM, HTN, HLD, morbid obesity
Hospital Course : Assessment: 74yo F [facility] HFpEF, IDDM, HTN, HLD, morbid obesity presented to [facility] ED 07/28 for SOB w a 'rattling sensation' in her chest. Pt placed on 2L O2 via NC. ProBNP wnl, HbA1c 6.7%, procal wnl. Pulmonary consulted. No evidence
for DVT. Considered R heart cath, chest CTA, but ultimately decided against as not likely PE or CHF exacerbation. Pt on BiPAP at home, does not use per sister. Did not tolerate BiPAP in the hospital. Became confused morning of 07/31, presumed due to
not using BiPAP. Encouraged pt to use IC as RML atelectasis on CXR. Hemodynamically stable, afebrile.
Important imaging findings :
CXR 07/28:
1. Mild cardiomegaly with suggestion of mild interstitial cardiogenic pulmonary edema.
2. Chronic band of airspace consolidation in the right middle lobe which is probably chronic atelectasis or scarring. Chronic or recurrent right middle lobe pneumonia is an alternative diagnostic possibility.
3. Mild to moderate elevation of the right hemidiaphragm.
4. Moderately exaggerated thoracic kyphosis, moderate left convex curvature of the thoracolumbar junction, and severe multilevel lower thoracic and upper lumbar discogenic degenerative disease.
Peripheral vascular u/s 07/29:
No sonographic evidence for lower extremity venous thrombosis.
Echo 07/31:
Left ventricle is small in size. Hyperdynamic left ventricular systolic
function. Left ventricular ejection fraction is 70-75% by visual assessment.
Moderate concentric left ventricular hypertrophy.
Normal right ventricular size and function.
No significant valvular pathology within limits of the study quality
Compared to prior study dated 05/28/2024, there is no significant change
Procedure findings : n/a
Discharge Plan
-
Patient Disposition: Correction/SNF
Discharge Diagnosis/Procedures: acute hypoxemic and hypercapnic respiratory failure
Condition: Fair
Diet: Low Cholesterol
Activity: As tolerated
Driving Restrictions: As prior to admission
Other Services: PT and OT
Instructions: Obstructive sleep apnea in adults, Atelectasis, Metabolic syndrome, How to use a PAP device
Referrals:
[facility] [Outside] - in one week
Indy Chappell CRNP [Non-Admitting Privileges, Pulmonary Medicine] - in four to six weeks
UNKNOWN - PT DOES,NOT KNOW [Family Provider]
Prescriptions:
Continued
simvastatin 20 MG tablet
20 mg PO HS
insulin glargine [Lantus Solostar U-100 Insulin] 100 unit/mL (3 mL) Insulin Pen
30 unit SC HS
insulin aspart U-100 [Novolog FlexPen U-100 Insulin] 100 unit/mL (3 mL) Insulin Pen
14 unit SC MEALS
multivitamin Tablet
2 tab PO DAILY
aspirin 81 mg Tablet,Delayed Release (Dr/Ec)
81 mg PO HS
acetaminophen 500 mg Tablet
1,000 mg PO Q6HPRN PRN (Reason: mild pain)
cholecalciferol (vitamin D3) [Vitamin D3] 25 mcg (1,000 unit) Capsule
50 mcg PO DAILY
coenzyme Q10 [CoQ-10] 100 mg Capsule
200 mg PO DAILY
polyethylene glycol 3350 [Miralax] 17 gram/dose Powder
17 g PO DAILY
fluticasone propionate 50 mcg/actuation [place],Suspension
2 spray INTRANASAL BIDPRN PRN (Reason: allergies)
carboxymethylcellulose sodium [Refresh Plus] 0.5 % Dropperette
2 drp BOTH EYES TIDPRN PRN (Reason: dry eyes)
furosemide 40 mg Tablet
40 mg PO DAILY 30 Days Qty: 30 0RF
metoprolol succinate 25 mg Tablet Extended Release 24 Hr
25 mg PO DAILY 30 Days Qty: 30 0RF
lisinopril 10 mg Tablet
10 mg PO DAILY 30 Days Qty: 30 0RF
Discharge Orders:
Discharge Patient (As Directed); Ordered 08/02/24
Ordered By: Shelby Yepez
Discharge Date and Time
Print Language: SPANISH
[2024-08-02 11:50] LABS: Glucose - Point of Care 95 mg/dl (70-99)
[2024-08-02] MEDS: NOVOLOG FLEXPEN SC (12:00)
[2024-08-02 13:22] VITALS: BP 121/72
--- NOTE | 2024-08-02 13:26 | CM ---
Addendum entered by Kasia Moyer 08/02/24 13:29:
fax [phone]
Original Note:
Patient for transfer to SNF today. Patient completed IMM and signed form placed on chart. Patient wanted to go by friend transportation but friend unavailable CM spoke with Acute care Liaison and patient indicated to CM that she has memory issues
and CM requested ambulance transportation. CM completing ambulance forms and communicated with health unit coordinator. CM will continue to follow for discharge planning needs.
Plan; transfer via ambulance to [facility]
please call report to [phone] and fax to [phone]
== END 2024-08-02 16:00 | DRG 205 ==
LOC: 4 WEST ACU 10:04
PROVIDERS: Internal Medicine; Internal Medicine Critical Care Medicine; ADMITTING PHYSICIAN Internal Medicine; ATTENDING PHYSICIAN Internal Medicine; CONSULT PHYSICIAN Internal Medicine Critical Care Medicine; CONSULT PHYSICIAN Psychiatry & Neurology Psychiatry; EMERGENCY PHYSICIAN Student in an Organized Health Care Education/Training Program
DX: E66.2 Morbid (severe) obesity with alveolar hypoventilation (principal); I50.33 Acute on chronic diastolic (congestive) heart failure; J96.21 Acute and chronic respiratory failure with hypoxia; J96.22 Acute and chronic respiratory failure with hypercapnia; J98.11 Atelectasis; E87.5 Hyperkalemia; I11.0 Hypertensive heart disease with heart failure; Z79.4 Long term (current) use of insulin; E66.01 Morbid (severe) obesity due to excess calories; Z68.36 Body mass index [BMI] 36.0-36.9, adult; M54.9 Dorsalgia, unspecified; G89.29 Other chronic pain
CPT/HCPCS: 93308; 36600; 71046; 80048; 80053; 82805; 82962; 83735; 83880; 84100; 84145; 84484; 85025; 85027; 93005; 93321; 93325; 93970; 96374; 97116; 97162; 97166; 97530; 97535; 99285; Q9950

== ENCOUNTER → 2024-09-13 09:57 | Outpatient (REF) | payer MEDICARE, OTHER, SELFPAY ==
[2024-09-13 11:38] LABS: Hematocrit 38.5 % (37.0-47.0); Hemoglobin 11.9 g/dL (12.0-16.0); Mean Corp Hgb Conc. 30.9 g/dL (33.0-37.0); Mean Corpuscular Volume 92.1 fL (81.0-99.0); Nucleated Red Blood Cells % 0 %; Platelet Count 313 10^3/uL (130-400); Red Cell Dist. Width 15.0 % (11.5-14.5)
[2024-09-13 12:13] LABS: ALT (SGPT) 33 U/L (0-35); AST (SGOT) 31 U/L (14-36); Albumin 4.1 g/dl (3.5-5.0); Alkaline Phosphatase 67 U/L (38-126); Blood Urea Nitrogen 45 mg/dl (7-17); Calcium 9.8 mg/dl (8.4-10.2); Carbon Dioxide 28 mmol/L (22-30); Chloride 106 mmol/L (98-107); Glucose 122 mg/dl (70-99); HDL Cholesterol 46 mg/dl; LDL Cholesterol, Calculated 66 mg/dl; Potassium 4.8 mmol/L (3.5-5.1); Sodium 138 mmol/L (135-145); Total Protein 6.5 g/dl (6.3-8.2); Very Low Density Lipoprotein 23 mg/dl (0-30); eGFR > 60.00
[2024-09-13 12:53] LABS: TSH 1.10 uIU/ml (0.47-4.68)
[2024-09-13 14:08] LABS: Glycohemoglobin (HgbA1c) 7.1 % (4.0-5.6)
[2024-09-13 17:19] LABS: Microalb - Urine Creatinine 72.600 mg/dl
[2024-09-13 17:23] LABS: Microalbumin, Random Urine 1.6 mg/dl (0.6-1.7)
== END ==
LOC: OLABPV 09:57
PROVIDERS: ATTENDING PHYSICIAN Internal Medicine; OTHER PHYSICIAN Physician Assistant
DX: E11.65 Type 2 diabetes mellitus with hyperglycemia (principal); I10 Essential (primary) hypertension
CPT/HCPCS: 36415; 80053; 80061; 82043; 82570; 83036; 84156; 84443; 85025

== ENCOUNTER 2024-12-22 18:19 | Emergency (ER) | payer MEDICARE, OTHER, SELFPAY ==
[2024-12-22 18:31] VITALS: BP 125/81
[2024-12-22 18:35] LABS: Glucose - Point of Care 199 mg/dl (70-99)
[2024-12-22 18:53] LABS: Hematocrit 39.1 % (37.0-47.0); Hemoglobin 12.2 g/dL (12.0-16.0); Mean Corp Hgb Conc. 31.2 g/dL (33.0-37.0); Mean Corpuscular Volume 89.7 fL (81.0-99.0); Nucleated Red Blood Cells % 0 %; Platelet Count 326 10^3/uL (130-400); Red Cell Dist. Width 13.3 % (11.5-14.5)
[2024-12-22 19:15] LABS: ALT (SGPT) 23 U/L (0-35); AST (SGOT) 20 U/L (14-36); Albumin 4.0 g/dl (3.5-5.0); Alkaline Phosphatase 94 U/L (38-126); Blood Urea Nitrogen 23 mg/dl (7-17); Calcium 9.1 mg/dl (8.4-10.2); Carbon Dioxide 31 mmol/L (22-30); Chloride 104 mmol/L (98-107); Glucose 210 mg/dl (70-99); Potassium 4.9 mmol/L (3.5-5.1); Sodium 139 mmol/L (135-145); Total Protein 6.5 g/dl (6.3-8.2); eGFR > 60.00
[2024-12-22 20:00] VITALS: BP 141/86
[2024-12-22 20:04] VITALS: BMI 41.1
--- NOTE | 2024-12-22 21:42 | ED.GENMED ---
History of Present Illness
General
Chief Complaint: Weakness
Time Seen by Provider: 12/22/24 21:25
History of Present Illness
History of Present Illness:
See MDM
Past History
Past History
ED Past Medical History: Hypercholesterolemia, NIDDM and Other
ED Past Surgical History: Appendectomy and Tonsilectomy
Social History
Tobacco: Non-smoker
Alcohol: None
Drug: None
Personal: Single
Living: alone
Employment: Employed
Family History
Family History: Other (Noncontributory)
Phy Exam
Physical Exam
Physical Exam:
See MDM
Course
Orders/Labs/Results
Orders:
Orders
12/22/24 18:40
Complete Blood Count/With Diff Urgent
Comprehensive Metabolic Panel Urgent
Abnormal Lab Results
12/22/24 12/22/24
18:33 18:40
MCHC 31.2 L g/dL
(33.0-37.0)
Abs Immat Gran (auto) 0.1 H 10^3/uL
(0-0.05)
Absolute Monos (auto) 0.7 H 10^3/uL
(0.1-0.6)
Immature Gran % 0.7 H %
(0-0.5)
Lymphocytes % 19.4 L %
(20.5-51.1)
Carbon Dioxide 31 H mmol/L
(22-30)
BUN 23 H mg/dl
(7-17)
Glucose 210 H mg/dl
(70-99)
POC Glucose 199 H mg/dl
(70-99)
12/22/24 18:40
12/22/24 18:40
Vital Signs
Initial and Last Documented VS:
Initial Vital Signs
Temp Pulse Resp BP Pulse Ox
98.4 F 91 18 125/81 92
12/22/24 18:31 12/22/24 18:31 12/22/24 18:31 12/22/24 18:31 12/22/24 18:31
Last Documented Vital Signs
Temp Pulse Resp BP Pulse Ox
98.4 F 90 18 141/86 93
12/22/24 18:31 12/22/24 20:00 12/22/24 18:31 12/22/24 20:00 12/22/24 20:00
MDM/Problems Addressed
Differential Diagnosis Includes:
Note:
CHIEF COMPLAINT(S)
Weakness and hand tremors.
HISTORY OF PRESENT ILLNESS
The patient is a 74-year-old female with a history of diabetes mellitus who presented with complaints of weakness and shaking of the hands. She reported the onset of symptoms hours ago, with improvement at the time of evaluation. The patient stated,
'My hands were really shaking,' which prompted a friend to come over and suggest it might be related to her diabetes. Blood glucose was reported to be over 300 mg/dL, although she had taken honey, soda, and chocolate. She noted recurrent shaking,
even during transport in the ambulance. The patient has taken Tylenol Arthritis (extra strength acetaminophen 650 mg) two to three times daily for several months for pain and expressed concern about liver damage; however, she was reassured it is
within safe limits. She described a recent change in medication, reporting that furosemide had been problematic due to urinary frequency causing accidents. She suspects possible arthritis as a cause of her hand symptoms due to a family history of
the condition. There is a history suggestive of carpal tunnel syndrome, though not officially diagnosed, and consideration of a neurologist follow-up was discussed due to fear of possible seizures. The patient reports nausea when bending,
exacerbated by recent transport experiences with EMS. There is no noticeable shortness of breath or history of seizures.
PAST MEDICAL AND SURGICAL HISTORY
History of diabetes mellitus with complications related to fluctuating glucose levels.
ADDITIONAL HISTORY OBTAINED FROM SOURCES OTHER THAN THE PATIENT
The patient mentioned that a friend suggested that the hand shaking could be related to her diabetes.
CHRONIC MEDICAL CONDITIONS SIGNIFICANTLY AFFECTING CARE
Chronic conditions affecting care: Diabetes mellitus.
PHYSICAL EXAM
General: Alert, no acute distress.
Skin: Warm, dry.
Head: Normocephalic, atraumatic
Neck: Appears supple, trachea midline.
Eyes, Ears, Nose, Mouth, and Throat: Moist mucous membranes
Cardiovascular: No signs of cyanosis. Regular rate and rhythm
Respiratory: Respirations are non-labored. Lungs clear
Abdomen: Non-distended
Musculoskeletal: Some edema extremities
Neurological: No focal neurological deficit observed.
Psychiatric: Cooperative, appropriate mood and affect.
PLAN
- Follow-up with primary care and a neurologist for further evaluation of tremors and possible seizure activity.
- Monitor and manage diabetes with potential medication adjustments.
- Reassurance on the current use of acetaminophen and provide education on safe usage.
DIFFERENTIAL DIAGNOSIS
The Differential Diagnosis includes, in no particular order and is not limited to:
- Hypoglycemia/hyperglycemia
- Diabetes-related neuropathy
- Drug side effects
- Essential tremor
- Electrolyte imbalance
- Neuropathy due to carpal tunnel syndrome
- Seizure disorder
- Parkinsons disease
- Arthritis
- Anxiety-related tremor
DISPOSITION
Discharge with instructions to follow up with primary care and neurologist.
ASSESSMENT
The patient presents with tremors and weakness likely related to complications of diabetes, possible medication side effects, and underlying conditions such as carpal tunnel or arthritis. Reassurance provided, and further outpatient evaluation
planned.
MEDICATION RECONCILIATION
- Current use of [id number] acetaminophen extra strength (acetaminophen 650 mg) was discussed and deemed within safe limits.
MEDICAL DECISION MAKING
- Complexity of Data Reviewed: Chronic conditions affecting care: Diabetes mellitus was considered alongside a range of differential diagnoses.
- Data:
Category 1
- Review of vital signs indicated no immediate danger to liver function based on current acetaminophen usage.
Category 2
- Discussion regarding EMS access involving the independent insight provided by her friend.
Category 3
- Consideration for further referral to primary care and a neurologist to manage ongoing diabetic control and investigate hand tremors.
- Risk:
Due to the patients diabetes and current presentation, there is an inherent risk tied to medication misuse and possible neurological events like seizures. The patient was advised on safe medication practices and follow-ups with necessary outpatient
care to mitigate any future complications.
Disposition:
SUMMARY OF ENCOUNTER
Patient presented with complaints of bleeding and shaking of the right hand. These symptoms resolved spontaneously. There was a discussion regarding the potential for a partial seizure, and the patient acknowledged this possibility. It was agreed
that she would have her primary care physician reevaluate her condition and follow up with neurology in an outpatient setting.
DISPOSITION
Discharge.
PLAN
The patient is advised to follow up with her primary care physician and schedule a neurology appointment for further evaluation of possible seizure activity.
PATIENT EDUCATION AND COUNSELING
The patient was educated about her symptoms and potential seizure activity. She was reassured about the plan to follow up with her primary care physician and neurologist for further evaluation.
FOLLOW-UP INSTRUCTIONS
Please call the office immediately to schedule a follow-up visit with your primary care physician and arrange an outpatient neurology consultation.
MEDICAL DECISION MAKING
-Complexity of Data Reviewed: Chronic conditions affecting care are diabetes mellitus. Differential diagnosis includes hypoglycemia/hyperglycemia, diabetes-related neuropathy, drug side effects, essential tremor, electrolyte imbalance, neuropathy
due to carpal tunnel syndrome, seizure disorder, Parkinsons disease, arthritis, and anxiety-related tremor.
-Data:
Category 2
Clinical information was obtained from an independent historian: Input from the patients friend regarding the hand shaking being related to her diabetes.
-Risk:
Prescription medication management is indicated given the patients chronic condition of diabetes mellitus and risk of possible neurological events like seizures.
DIAGNOSIS
Possible partial seizure [R56.9], Hand tremor [R25.1].
*Pulse Oximetry
SaO2: 93
Oxygen Mode of Delivery: Room air
Patient hypoxic: no
*Critical Care Note
Total Time (30-74mins, 75-104mins- exclusive of procedures): Not Applicable
ED Attending Note
-
Portions of this chart may have been created with voice recognition software.� Occasional wrong word or��sound alike� substitutions may have occurred due to the inherent limitations of voice recognition software.
Discharge Plan
Departure
Patient Disposition: Home (Routine Discharge)
Date of Disposition: 12/22/24
Time of Disposition: 21:44
Patient with high blood pressure during this ER visit?: No
Discharge Problem:
Tremor of right hand
Instructions: Tremor
Prescriptions:
No Action
simvastatin 20 MG tablet
20 mg PO HS
insulin glargine [Lantus Solostar U-100 Insulin] 100 unit/mL (3 mL) Insulin Pen
30 unit SC HS
insulin aspart U-100 [Novolog FlexPen U-100 Insulin] 100 unit/mL (3 mL) Insulin Pen
14 unit SC MEALS
multivitamin Tablet
2 tab PO DAILY
aspirin 81 mg Tablet,Delayed Release (Dr/Ec)
81 mg PO HS
acetaminophen 500 mg Tablet
1,000 mg PO Q6HPRN PRN (Reason: mild pain)
cholecalciferol (vitamin D3) [Vitamin D3] 25 mcg (1,000 unit) Capsule
50 mcg PO DAILY
coenzyme Q10 [CoQ-10] 100 mg Capsule
200 mg PO DAILY
polyethylene glycol 3350 [Miralax] 17 gram/dose Powder
17 g PO DAILY
fluticasone propionate 50 mcg/actuation [place],Suspension
2 spray INTRANASAL BIDPRN PRN (Reason: allergies)
carboxymethylcellulose sodium [Refresh Plus] 0.5 % Dropperette
2 drp BOTH EYES TIDPRN PRN (Reason: dry eyes)
furosemide 40 mg Tablet
40 mg PO DAILY 30 Days Qty: 30 0RF
metoprolol succinate 25 mg Tablet Extended Release 24 Hr
25 mg PO DAILY 30 Days Qty: 30 0RF
lisinopril 10 mg Tablet
10 mg PO DAILY 30 Days Qty: 30 0RF
Referrals:
Jose Song MD [Active, Neurology]
Geri Ramirez MD [Family Provider, Internal Medicine]
Activity Restrictions/Additional Instructions:
Please return for any worsening symptoms.
You may return at any time if you have further concerns.
Please follow up with your doctor at the first available appointment, preferably this week. Please discuss your symptoms. You would benefit from a neurology evaluation to rule out partial seizure. Please call for first available appointment.
Thank you for choosing [facility].
Interventions
Interventions:
*Risk Screen - Suicide Last Done: 12/22/24 18:31
*General Assessment Last Done: 12/22/24 18:31
*Neglect/Abuse Screening Last Done: 12/22/24 18:31
*ED- Fall Risk Assessment Last Done: 12/22/24 20:01
*ED COVID-19 Vaccine History Last Done: 12/22/24 20:01
*ED Influenza Vaccine History Last Done: 12/22/24 20:01
ED- Cardiac Assessment Last Done: 12/22/24 20:00
ED- Neurological Assessment Last Done: 12/22/24 20:00
ED- Pulmonary Assessment Last Done: 12/22/24 20:00
Discharge Date and Time
Print Language: IRANIAN
[2024-12-22 22:19] VITALS: BP 140/98
--- NOTE | 2024-12-22 22:20 | EDRN ---
patient discharged, pending ride home; patient requesting all monitoring be removed so that she can get dressed.
[2024-12-22] MEDS: TYLENOL 1000 MG PO (22:27)
== END 2024-12-22 23:54 | disposition home or self-care (01) ==
LOC: EMR 18:19
PROVIDERS: Student in an Organized Health Care Education/Training Program; EMERGENCY PHYSICIAN Student in an Organized Health Care Education/Training Program; FAMILY PHYSICIAN Internal Medicine
DX: R25.1 Tremor, unspecified (principal); R53.1 Weakness; R11.0 Nausea; E11.9 Type 2 diabetes mellitus without complications; E78.00 Pure hypercholesterolemia, unspecified; Z88.1 Allergy status to other antibiotic agents; Z79.82 Long term (current) use of aspirin
CPT/HCPCS: 99283; 80053; 82962; 85025

== ENCOUNTER 2025-01-21 17:52 | Inpatient (IN) | payer MEDICARE, OTHER, SELFPAY ==
[2025-01-20] VITALS (8 sets, daily range): BP systolic 129–182; BP diastolic 70–93; BMI 42.2; BMI 41.6
--- NOTE | 2025-01-20 08:37 | ED.GENMED ---
History of Present Illness
<Jody Dyer MD, Resident - Last Filed: 01/20/25 12:45>
General
Chief Complaint: Back Pain
Source: patient
Exam Limitations: altered mental status
Time Seen by Provider: 01/20/25 08:17
Nursing documentation reviewed up to this point in time: agreed with
History of Present Illness
History of Present Illness:
74yo F with a hx of DM, CHF, HTN, HLD who presents with acute on chronic back pain.
Pt states that she has chronic back pain, typically R-sided in middle-low back. She has seen orthopedic surgeons and a neurologist for this and received multiple injections. These did not help. It occasionally radiates to R leg but currently does
not. She takes tylenol arthritis-strength for pain, which she took today. Pt states that starting yesterday she had worsening of her low back pain (in typical back location) which was very painful when she got up this am, leading her to call EMS.
She denies any new cough, SOB, dysuria, fever/chills, or abdominal pain. Denies any paresthesias or weakness. States that the pain is worse with walking and worse with back flexion. States that she also feels a sensation of urinary retention,
wanting to urinate but not being able to. However, also states that she was having urgency and not being able to make it to the bathroom and has been urinating frequently. States that she feels 'dry' and dehydrated but has been trying to drink more
than usual. Pt with AMS, trailing off mid sentence, closing eyes, changing subject. However, able to state name, , year, and location.
Past History
<Jody Dyer MD, Resident - Last Filed: 01/20/25 12:45>
Past History
ED Past Medical History: Hypercholesterolemia, NIDDM and Other
ED Past Surgical History: Appendectomy and Tonsilectomy
Social History
Tobacco: Non-smoker
Alcohol: None
Drug: None
Personal: Single
Living: alone
Employment: Employed
Family History
Family History: Other (Noncontributory)
Review of Systems
<Jody Dyer MD, Resident - Last Filed: 01/20/25 12:45>
Review of Systems
Allergies reviewed?: No
Unable to obtain full review of systems at this time due to: dementia
All Other Systems: ROS reviewed and negative except as documented in HPI and ROS
Constitutional: Reports no symptoms
EENT: Reports other (hoarse)
Respiratory: Reports no symptoms
Cardiac: Reports no symptoms
ABD/GI: Reports no symptoms
: Reports frequency, incontinence, difficulty voiding and urgency
Musculoskeletal: Reports back pain
Skin: Reports no symptoms
Neurological: Reports no symptoms
Psychiatric: Reports no symptoms
Phy Exam
<Jody Dyer MD, Resident - Last Filed: 01/20/25 12:45>
General Physical Exam
General Presentation: mild distress
General age: appears older than age
General Skin: warm and dry
General Habitus: obese
General Mental: alert and confused
Cardiovascular Exam
Cardiovascular Exam: regular rate/rhythm and other (severe chronic venous stasis in bilat LE )
Pulmonary Exam
Pulmonary Exam: lungs clear and no respiratory distress
Gastrointestinal Exam
Gastrointestinal Exam: non tender and soft
Neurological Exam
Neurological Exam: oriented x3
Skin Exam
Skin Exam: normal color
Psychiatric Exam
Psychiatric Exam: other (nonlinear thought process )
Course
<Jody Dyer MD, Resident - Last Filed: 01/20/25 12:45>
Orders/Labs/Results
Orders:
Orders
01/20/25 09:04
CT Abd/pel Without Iv Or Oral Urgent
Comment:
Reason For Exam: R-sided low/mid back pain
Ketorolac [Toradol] 15 mg PO NOW STA
01/20/25 09:15
Complete Blood Count/With Diff Urgent
Comprehensive Metabolic Panel Urgent
Urinalysis Reflex To Culture Urgent
Date Specimen was Collected: 01/20/25
Time Specimen was Collected: 09:09
Urine Microscopic Reflex Cult Urgent
Urine Culture Urgent
SAHARA Source: U
Specimen Description:
Date Specimen was Collected: 01/20/25
Time Specimen was Collected: 09:09
Lidocaine [Lidocaine 4% Patch] 1 patch TOPICAL DAILY
Apply Lidocaine patch(s) to:: R mid-low back
01/20/25 09:22
Ketorolac [Toradol] 15 mg IV NOW STA
01/20/25 10:23
Bladder Scan- Treatment ONCE
Comment: post-void residual bladder scan
01/20/25 12:30
Hernandez Placement- Treatment ONCE
Reason for insertion: Outlet obstruction
01/20/25 13:17
Prednisone [Deltasone] 60 mg PO NOW STA
01/20/25 13:18
ABG [Arterial Blood Gas] Stat
%Oxygen/Room Air: 92%/RA
01/20/25 13:20
Acetaminophen 1000MG/100Ml [Ofirmev] 1,000 mg in 100 ml IV ONCE
Acetaminophen IV Indication:: No [place] & No Enteral Access
01/20/25 13:38
Admit/Transfer Patient As Directed
Co-Sign Provider:
Level of Care: Observation services
Assign to:: Telemetry
Physician / Group: Ari Logan
Diagnosis: acute on chronic back pain, acute urinary retention
Reason for Telemetry: Arrhythmia
Date to Stop Telemetry: 01/23/25
Time to Stop Telemetry: 11:00
01/20/25 13:39
PRN Pain Medication Management As Directed
May give lesser potent ordered pain med per pt: Yes
preference::
Protocol:: Medication orders for pain may be administered in a
manner that supports deferring to patient preference
when the pt is:
- Requesting an ordered lesser potent pain medication.
Least to most potent pain medications are defined
as: acetaminophen < NSAID < tramadol < opioids
(morphine, oxycodone, hydromorphone).
- Requesting a lesser dose of the same medication IF
ORDERED.
- Requesting a less intrusive route of administration
if both routes are prescribed by the provider (PO <
IV).
01/20/25 13:40
Code Status As Directed
Resuscitation Status: Full Code
01/23/25 11:00
DC Protocol for Telemetry ONCE
Abnormal Lab Results
01/20/25 01/20/25
09:15 13:18
MCHC 29.9 L g/dL
(33.0-37.0)
Lymphocytes % 18.7 L %
(20.5-51.1)
pCO2 50 H mmHg
(32-35)
pO2 64 L mmHg
(83-108)
HCO3 32.4 H mmol/L
(21-28)
ABG O2 Sat (Measured) 92.9 L %
(94-98)
Carbon Dioxide 33 H mmol/L
(22-30)
BUN 23 H mg/dl
(7-17)
Glucose 119 H mg/dl
(70-99)
Ur Occult Blood Reflex 1+ A
(Negative)
Leukocyte Esterase Rfl 2+ A
(Negative)
Urine Bacteria (Reflex) Few A
(Negative)
Urine Albumin (Reflex) 1+ A
(Neg - Trace)
01/20/25 09:15
01/20/25 09:15
Vital Signs
Initial and Last Documented VS:
Initial Vital Signs
Temp Pulse Resp BP Pulse Ox
98.0 F 87 16 154/87 92
01/20/25 08:12 01/20/25 08:12 01/20/25 08:12 01/20/25 08:12 01/20/25 08:12
Last Documented Vital Signs
Temp Pulse Resp BP Pulse Ox
98.0 F 93 15 135/70 92
01/20/25 08:12 01/20/25 14:30 01/20/25 14:30 01/20/25 14:17 01/20/25 14:30
Barreralt;Ramon Snow, DO - Last Filed: 01/20/25 14:40>
Orders/Labs/Results
Orders:
Orders
01/20/25 09:04
CT Abd/pel Without Iv Or Oral Urgent
Comment:
Reason For Exam: R-sided low/mid back pain
Ketorolac [Toradol] 15 mg PO NOW STA
01/20/25 09:15
Complete Blood Count/With Diff Urgent
Comprehensive Metabolic Panel Urgent
Urinalysis Reflex To Culture Urgent
Date Specimen was Collected: 01/20/25
Time Specimen was Collected: 09:09
Urine Microscopic Reflex Cult Urgent
Urine Culture Urgent
SAHARA Source: U
Specimen Description:
Date Specimen was Collected: 01/20/25
Time Specimen was Collected: 09:09
Lidocaine [Lidocaine 4% Patch] 1 patch TOPICAL DAILY
Apply Lidocaine patch(s) to:: R mid-low back
01/20/25 09:22
Ketorolac [Toradol] 15 mg IV NOW STA
01/20/25 10:23
Bladder Scan- Treatment ONCE
Comment: post-void residual bladder scan
01/20/25 12:30
Hernandez Placement- Treatment ONCE
Reason for insertion: Outlet obstruction
01/20/25 13:17
Prednisone [Deltasone] 60 mg PO NOW STA
01/20/25 13:18
ABG [Arterial Blood Gas] Stat
%Oxygen/Room Air: 92%/RA
01/20/25 13:20
Acetaminophen 1000MG/100Ml [Ofirmev] 1,000 mg in 100 ml IV ONCE
Acetaminophen IV Indication:: No W[place] & No Enteral Access
01/20/25 13:38
Admit/Transfer Patient As Directed
Co-Sign Provider:
Level of Care: Observation services
Assign to:: Telemetry
Physician / Group: Ari Logan
Diagnosis: acute on chronic back pain, acute urinary retention
Reason for Telemetry: Arrhythmia
Date to Stop Telemetry: 01/23/25
Time to Stop Telemetry: 11:00
01/20/25 13:39
PRN Pain Medication Management As Directed
May give lesser potent ordered pain med per pt: Yes
preference::
Protocol:: Medication orders for pain may be administered in a
manner that supports deferring to patient preference
when the pt is:
- Requesting an ordered lesser potent pain medication.
Least to most potent pain medications are defined
as: acetaminophen < NSAID < tramadol < opioids
(morphine, oxycodone, hydromorphone).
- Requesting a lesser dose of the same medication IF
ORDERED.
- Requesting a less intrusive route of administration
if both routes are prescribed by the provider (PO <
IV).
01/20/25 13:40
Code Status As Directed
Resuscitation Status: Full Code
01/23/25 11:00
DC Protocol for Telemetry ONCE
Abnormal Lab Results
01/20/25 01/20/25
09:15 13:18
MCHC 29.9 L g/dL
(33.0-37.0)
Lymphocytes % 18.7 L %
(20.5-51.1)
pCO2 50 H mmHg
(32-35)
pO2 64 L mmHg
(83-108)
HCO3 32.4 H mmol/L
(21-28)
ABG O2 Sat (Measured) 92.9 L %
(94-98)
Carbon Dioxide 33 H mmol/L
(22-30)
BUN 23 H mg/dl
(7-17)
Glucose 119 H mg/dl
(70-99)
Ur Occult Blood Reflex 1+ A
(Negative)
Leukocyte Esterase Rfl 2+ A
(Negative)
Urine Bacteria (Reflex) Few A
(Negative)
Urine Albumin (Reflex) 1+ A
(Neg - Trace)
01/20/25 09:15
01/20/25 09:15
Vital Signs
Initial and Last Documented VS:
Initial Vital Signs
Temp Pulse Resp BP Pulse Ox
98.0 F 87 16 154/87 92
01/20/25 08:12 01/20/25 08:12 01/20/25 08:12 01/20/25 08:12 01/20/25 08:12
Last Documented Vital Signs
Temp Pulse Resp BP Pulse Ox
98.0 F 93 15 135/70 92
01/20/25 08:12 01/20/25 14:30 01/20/25 14:30 01/20/25 14:17 01/20/25 14:30
<Jody Dyer MD, Resident - Last Filed: 01/20/25 12:45>
MDM/Problems Addressed
Differential Diagnosis Includes:
Ddx:
Acute on chronic osteoarthritic pain
Nephrolithiasis
Less likely:
Herniated disc
Pyelonephritis
Epidural abscess
PE
MDM/Problems Addressed:
Plan:
- CBC, CMP
- UA w reflex
- CT a/p without contrast
- 15mg toradol
- Lidoderm patch
<Jody Dyer MD, Resident - Last Filed: 01/20/25 12:45>
*Pulse Oximetry
SaO2: 92
Oxygen Mode of Delivery: Room air
Patient hypoxic: no
*Critical Care Note
Total Time (30-74mins, 75-104mins- exclusive of procedures): Not Applicable
<Jody Dyer MD, Resident - Last Filed: 01/20/25 12:45>
Update Note
Update Note:
10:30am
CT a/p:
There is borderline mild right sided hydronephrosis, however no discrete obstruction is identified. There is a 6.5 mm nonobstructing stone within the left kidney.
The urinary bladder is moderately distended.
There is stranding within the lower anterior abdominal wall which extends to the bilateral flanks which may represent edema, however a superficial infectious process cannot be excluded. Recommend direct visualization.
Colonic diverticulosis.
Urinalysis not c/f UTI infection.
Will plan for bladder scan with post-void residual given bladder fullness on CT scan & pt complaints.
12:30pm
Bladder scan with PVR 507mL after standing & urinating in bathroom
Pt had been complaining of dribbling/leaking urine while walking to bathroom
Likely overflow incontinence in s/o bladder outlet obstruction vs. neurogenic bladder c/w hydronephrosis seen
Will place hernandez catheter and plan for admission
ED Attending Note
<Jody Dyer MD, Resident - Last Filed: 01/20/25 12:45>
-
Portions of this chart may have been created with voice recognition software.� Occasional wrong word or��sound alike� substitutions may have occurred due to the inherent limitations of voice recognition software.
<Ramon Snow, DO - Last Filed: 01/20/25 14:40>
ED Attending Note
Patient seen and examined by attending physician: Yes
I performed a history and physical exam of patient and discussed management with resident, I reviewed resident's note and agree with documented findings and plan of care.: Yes
ED Attending Note:
I agree with Jody's note
Patient presents with pain in her right low back. Pain seem to get worse last evening around dinnertime. Patient cannot identify a particular event or movement that caused the pain to get worse. No radiation to her legs. No incontinence.
Patient was having difficulty falling asleep. She took Tylenol for pain. No focal weakness numbness or tingling. She has noted some difficulty urinating initially and now she feels like she is urinating frequently. No fever or chills.
General: Awake, Alert, Oriented X3. No acute distress.
Vitals: unremarkable
Head: Atraumatic
Eyes: Pupils equal, EOMI
Throat: Airway intact, no exudates
Neck: Trachea midline
Lungs: Clear and equal b/l
Heart: Regular rate, no murmurs
Abd: Soft, Nontender, No pulsatile mass
Back: Right CVA tenderness
Neuro: No focal
Skin: Warm, dry, no rash
Extremities: pulses equal b/l, no edema
Likely an exacerbation of chronic back pain but will check for a urinary tract infection, kidney stone or acute compression fracture
While in the emergency room the patient was having almost continuous episodes of urination with very small volumes. Bladder scan showed over 500 cc of urine. This is after the patient was taken to the bathroom to void on the toilet. Therefore
Hernandez catheter was placed. When going to the bathroom the patient was quite unsteady on her feet. Patient will require hospitalization for further evaluation for her bladder outlet obstruction, I of the spine to evaluate for significant spinal
stenosis causing the neurogenic bladder etc. She does not have leg weakness to suggest an acute cauda equina type syndrome.
Discharge Plan
Departure
Patient Disposition: Admit
Date of Disposition: 01/20/25
Time of Disposition: 12:41
Admit to: Med/Surg
Presentation/result/management discussed w/ accepting MD/DO: Hospitalist
Patient with high blood pressure during this ER visit?: Yes
Condition: Fair
Covid-19: Not Applicable
Discharge Problem:
Acute urinary retention, Acute on chronic back pain
Interventions
Interventions:
*Risk Screen - Suicide Last Done: 01/20/25 08:12
*General Assessment Last Done: 01/20/25 08:12
*Neglect/Abuse Screening Last Done: 01/20/25 08:12
*ED- Fall Risk Assessment Last Done: 01/20/25 08:24
*ED COVID-19 Vaccine History Last Done: 01/20/25 08:24
*ED Influenza Vaccine History Last Done: 01/20/25 08:24
ED-Musculoskeletal Assessment Last Done: 01/20/25 08:24
[2025-01-20] MEDS: LIDOCAINE 4% PATCH 1 PATCH TOPICAL (09:13)
[2025-01-20 09:25] LABS: Hematocrit 42.8 % (37.0-47.0); Hemoglobin 12.8 g/dL (12.0-16.0); Mean Corp Hgb Conc. 29.9 g/dL (33.0-37.0); Mean Corpuscular Volume 92.2 fL (81.0-99.0); Nucleated Red Blood Cells % 0 %; Platelet Count 272 10^3/uL (130-400); Red Cell Dist. Width 14.4 % (11.5-14.5)
[2025-01-20 09:35] LABS: Urine Character Clear (Clear)
[2025-01-20 09:38] LABS: ALT (SGPT) 24 U/L (0-35); AST (SGOT) 22 U/L (14-36); Albumin 4.1 g/dl (3.5-5.0); Alkaline Phosphatase 64 U/L (38-126); Blood Urea Nitrogen 23 mg/dl (7-17); Calcium 9.7 mg/dl (8.4-10.2); Chloride 101 mmol/L (98-107); Estimated Creatinine Clearance 66 ml/min; Glucose 119 mg/dl (70-99); Potassium 4.9 mmol/L (3.5-5.1); Sodium 140 mmol/L (135-145); Total Protein 6.7 g/dl (6.3-8.2); eGFR > 60.00
[2025-01-20 09:47] LABS: Carbon Dioxide 33 mmol/L (22-30); Urine Red Blood Cell 0-2 /HPF (0-2); Urine Squamous Cell 0-2 /LPF (Few); Urine White Cell 0-2 /HPF (0-5)
[2025-01-20] MEDS: TORADOL 15 MG IV (09:49)
--- NOTE | 2025-01-20 12:46 | HPS.HSE ---
Family Physician
-
Family Physician: Geri Ramirez
Chief Complaint
-
back pain
History of Present Illness
Patient is a 74-year-old female with past medical history significant for HFpEF, type II diabetes, hypertension, dyslipidemia and morbid obesity who presented to [facility] ED for evaluation of back pain. Patient reports chronic back pain that has been
worked up out patient including with primary care and orthopedic. She reports previous injections that were not helpful in improving pain. Patient reports pain is midback and occasionally radiates to right leg. Patient utilizes Tylenol Extra
Strength Arthritis daily for pain management. Patient states that pain was significantly worse this morning prompting her to call EMS. Patient also notes recent history of urinary frequency, urgency and stress incontinence. ED notes indicate patient
with AMS, drifting to sleep or changing subject abruptly. Patient denies any fever, chills, cough, shortness of breath, chest pain, nausea, vomiting or bowel changes.
Medical History
Past Medical History
Past Medical History: Reports Other
Additional Past Medical History:
HFpEF
type II diabetes
hypertension
dyslipidemia
chronic back pain
morbid obesity
suspected ANDREINA/OHS
Past Surgical History: Reports Other
Additional Past Surgical History:
Appendectomy
Tonsillectomy
right cataract removal 08/16/23
Social History
Tobacco: Non-smoker
Alcohol: Occasional
Drug: None
Living: Alone
Family History
Family History: Not pertinent
Allergies / Home Medications
Allergies reflects when Allergies were last updated in [employer].
Home Medications with original date entered in [employer]
Allergy/Medication List:
Allergies
Allergy/AdvReac Type Severity Reaction Status Date / Time
amoxicillin Allergy Nausea / Verified 12/22/24 18:31
Vomiting
erythromycin base (From Allergy slept on Verified 12/22/24 18:31
Erythrocin) BR due to
diarrhea
and
Vomiting
Home Medications
simvastatin 20 mg tablet 20 mg PO HS High cholesterol 08/21/20
insulin aspart U-100 100 unit/mL (3 mL) subcutaneous pen (Novolog FlexPen U-100 Insulin aspart) 16 unit SC MEALS Diabetes 09/03/22
insulin glargine 100 unit/mL (3 mL) subcutaneous pen (Lantus Solostar U-100 Insulin) 25 unit SC HS Diabetes 09/03/22
carboxymethylcellulose sodium 0.5 % eye drops in a dropperette (Refresh Plus) 2 drp BOTH EYES TIDPRN PRN dry eyes 12/13/22
cholecalciferol (vitamin D3) 25 mcg (1,000 unit) capsule (Vitamin D3) 50 mcg PO DAILY Supplement 12/13/22
fluticasone propionate 50 mcg/actuation nasal spray,suspension 2 spray intranasal BIDPRN PRN allergies 12/13/22
polyethylene glycol 3350 17 gram/dose oral powder (Miralax) 17 g PO DAILY Constipation 12/13/22
lisinopril 10 mg tablet 10 mg PO DAILY Blood pressure 1 month #30 tabs 05/29/24
acetaminophen 650 mg tablet,extended release 1,300 mg PO TID mild pain 01/20/25
therapeutic multivitamin 2 tab PO DAILY Supplement 01/20/25
Review of Systems
-
History Source: Patient
Constitutional: Denies Fever or Chills
EENT: Denies Sore Throat
Respiratory: Denies Cough, Hemoptysis or Trouble Breathing
Cardiac: Denies Chest Pain, Diaphoresis, Palpitations or Syncope
Abdomen/GI: Denies Abdominal Pain, Nausea, Vomiting or Diarrhea
: Reports Frequency, Difficulty Voiding and Urgency; Denies Dysuria
Musculoskeletal: Reports Other (back pain )
Skin: Denies Rash
Neurological: Denies Dizzy, Headache or Weakness
Endocrine: Denies Polyuria or Polydipsia
Physical Exam
Vital Signs
Vital Signs
Temp Pulse Resp BP Pulse Ox
98.0 F 91 17 182/92 92
01/20/25 08:12 01/20/25 12:00 01/20/25 12:00 01/20/25 12:00 01/20/25 12:00
Physical Exam
General: Well Developed, Well Nourished, No Apparent Distress, Comfortable, Conversant and Morbidly Obese
HEENT: NormoCephalic, Moist mucous membranes, PERRLA, Ears Appear Normal and Hearing Impaired
Respiratory: Clear and Non Labored Respirations; No Wheezes
Cardiac: S1/S2, Regular Rhythm and Peripheral Edema; No Murmur
GI: Soft, Non Tender, Non Distended and Normal Bowel Sounds
Musculoskeletal: No Clubbing and No Cyanosis
Skin: Warm and IV/Catheter Site
Neuro: Awake and AO x 3
Psych: Calm
Laboratory Results
-
01/20/25 09:15
01/20/25 09:15
Laboratory Results
Total Bilirubin 0.5 mg/dl (0.2-1.3) 01/20/25 09:15
AST 22 U/L (14-36) 01/20/25 09:15
ALT 24 U/L (0-35) 01/20/25 09:15
Alkaline Phosphatase 64 U/L (38-126) 01/20/25 09:15
Data Reviewed
-
CT Scan: Report Reviewed by me (Abd/Pel: There is borderline mild right sided hydronephrosis, however no discrete obstruction is identified. There is a 6.5 mm nonobstructing stone within the left kidney. The urinary bladder is moderately distended.
There is stranding within the lower anterior abdominal wall which extends to the )
Lab Data: Labs Reviewed by me
Impression/Plan
-
IMPRESSION/PLAN:
#back pain 2/2 right sided hydronephrosis, nonobstructing stone within the left kidney vs. acute on chronic osteoarthritic pain
c/o severe back pain, urinary urgency, frequency and stress incontinence
Abd/Pel CT: There is borderline mild right sided hydronephrosis, however no discrete obstruction is identified. There is a 6.5 mm nonobstructing stone within the left kidney.
The urinary bladder is moderately distended.
There is stranding within the lower anterior abdominal wall which extends to the bilateral flanks which may represent edema, however a superficial infectious process cannot be excluded. Recommend direct visualization.
Colonic diverticulosis.
- Admit to telemetry
- Lidocaine patch
- start Prednisone 60mg with taper
- Consult physiatry for back pain
#acute urinary retention 2/2 bladder outlet obstruction vs. neurogenic bladder c/w hydronephrosis seen
c/o severe back pain, urinary urgency, frequency and stress incontinence
[place] for acute retention placed in ED
- Consult Urology
- nursing to teach self catheterization per Urology
- likely nonurgent out patient work up with urology
#altered mental status
ED notes indicate patient with AMS, drifting to sleep or changing subject abruptly
- check ABG
- CPap PRN and HS
#HFpEF
- daily weights
- I & Os
- continue furosemide
#type II diabetes
last A1c 7.1 (09/13/2024)
- AccuCheck AC & HS
- SSI
- continue Lantus HS and aspart AC
#hypertension
- continue lisinopril and metoprolol
#dyslipidemia
- continue simvastatin
#morbid obesity
- encourage balanced diet and exercise to promote weight loss
#chronic back pain
- continue acetaminophen PRN
#suspected ANDREINA/OHS
not complaint with CPap at home
- CPap PRN and HS
Code status: full code
DVT prophylaxis: Lovenox sq
--- NOTE | 2025-01-20 12:47 | W.PN.UPDATE ---
Addendum entered and electronically signed by Ari Logan MD 01/20/25 21:16:
ABG at baseline
07/29/24 01/20/25
12:06 13:18
pH 7.39 7.42
pCO2 56 H 50 H
pO2 119 H 64 L
HCO3 33.9 H 32.4 H
chr hypoxic RF
Primary metabolic alkalosis
Secondary rep acidosis
Chronic Hypoxemic and Hypercapnic Respiratory Failure, on 2-3L NC O2 at baseline
ANDREINA on CPAP
Original Note:
Update Note
Progress Note Update
This note serves as an addendum to the H&P by pole framer Stefanie Dillon
HPI
74F Morbidly obese, BMI 42 HX HFpEF, IDDM, HTN, HLD seen at ER:
- worsening mid back pain with no radiation
- HX chr LBP typically R-sided in middle-low back with radiation to Rt Saida had seen orthopedic surgeons and a neurologist for this and received multiple injections but did not help.
- She took Tylenol arthritis-strength for pain
- currently worsening LBP , very severe with changing od posture, since yesterday
- feels a sensation of urinary retention, wanting to urinate but not being able to.
- POS urgency and caught short
- Denies any paresthesias or weakness.
HX ANDREINA but non adherence with CPAP due to oversize mask
Per ER record:
- Also AMS, trailing off mid sentence, closing eyes, changing subject. However, able to state name, , year, and location.
ROS
She denies any new cough, SOB, dysuria, fever/chills, or abdominal pain. States that the pain is worse with walking and worse with back flexion. States that she also However, also states that she was having urgency and not being able to make it to
the bathroom and has been urinating frequently. States that she feels 'dry' and dehydrated but has been trying to drink more than usual.
Vital Signs
Temp Pulse Resp BP Pulse Ox
98.0 F 91 17 182/92 92
01/20/25 08:12 01/20/25 12:00 01/20/25 12:00 01/20/25 12:00 01/20/25 12:00
PE
Morbidly obese BMI 42
Gen: alert, appropriately interactive
HEENT: anicteric
Neck: very large neck appeared very short
Lungs: symmetric AC
Cor: RRR S1 S2
Abdomen:� soft obese
CASKET INSPECTOR: AAO3, grossly NFND
MS: b/l Saida erythema , mildly edematous
Psych: Nl mood and affect
Relevant Data
01/20/25
09:15
WBC 7.5
Hgb 12.8
Plt Count 272
Sodium 140
Potassium 4.9
Carbon Dioxide 33 H
BUN 23 H
Creatinine 0.7
eGFR > 60.00
Glucose 119 H
07/29/24 12/22/24
12:06 18:40
pH 7.39
pCO2 56 H
pO2 119 H
HCO3 33.9 H
Carbon Dioxide [address] AP wo IV contrast
There is borderline mild right sided hydronephrosis, however no discrete obstruction is identified.
There is a 6.5 mm nonobstructing stone within the left kidney.
The urinary bladder is moderately distended.
There is stranding within the lower anterior abdominal wall which extends to the bilateral flanks which may represent edema, however a superficial infectious process cannot be excluded.
Recommend direct visualization.
Colonic diverticulosis.
07/31/24 TTE
Left ventricle is small in size. Hyperdynamic left ventricular systolic
function. Left ventricular ejection fraction is 70-75% by visual assessment.
Moderate concentric left ventricular hypertrophy.
Normal right ventricular size and function.
No significant valvular pathology within limits of the study quality
Compared to prior study dated 05/28/2024, there is no significant change
Last hospitalist admission: 07/28/24 - 08/02/24
DC DX : acute hypoxemic and hypercapnic respiratory failure
Chronic Discharge diagnosis : HFpEF, IDDM, HTN, HLD, morbid obesity
ASSESSMENT & PLAN
Pending Rx reconciliation
Currently normal MS with wakefulness
Transient episode of AMS at ER DDX: Hypercapnic RF , Pain Meds
HX CO2 retention per prior ABG
Class III Obesity - at risk for OHVS
- stat ABG
- Avoid CASKET INSPECTOR Meds for now
Acute UR - PVR 507mL
Associated borderline mild right sided hydronephrosis
6.5 mm nonobstructing stone within the left kidney per CT
- FC placed at ER
- UA
- Routine Uro consulted
Acute on chr LBP
- c/w Lidoderm patch
- PRN analgesia: IV Tylenol
- PO Prednisone 60 mg now, 60mg tomorrow then 40mh x 2 days, 20mg x 2 day and 10mg 2 days
- await ABG - till then avoid Narcotic Analgesia
- PT/OT
- Consult Human Resources Team Member
IDDM
- prior HbA1c 6.7%-
- C/w HYDRAULIC OPERATOR Home regimen: Lantus 30u QHS + NovoLog 14u AC
- add ISS low
HX Chronic HFpEF without acute exacerbation
- c/w home metoprolol, lisinopril
Essential HTN
- on metoprolol and lisinopril
BMI 42 - Morbid obesity
Chr ambulatory dysfunction - use roller aid
Lives with sister
- CRM evaluation
DVT Px: LMWH
Full code
OBS TLM
[2025-01-20 13:28] LABS: B.E. 6.7 mmol/L; HCO3 32.4 mmol/L (21-28); O2 Saturation % 92.9 % (94-98); PCO2 50 mmHg (32-35); PO2 64 mmHg (83-108)
[2025-01-20] MEDS: OFIRMEV 100 IV (13:36)
[2025-01-20] MEDS: DELTASONE 60 MG PO (13:36)
[2025-01-20 16:04] LABS: Glucose - Point of Care 208 mg/dl (70-99)
--- NOTE | 2025-01-20 17:23 | RESPNOTE ---
Confirmed own CPAP order with patient. Patient stated 'I do not wear that. I have to redo the test again because everything got messed. I do not have a CPAP'. Also disclosed to patient that she could try using a hospital CPAP during her stay if she
did not have a CPAP of her own, patient refused.
[2025-01-20] MEDS: NOVOLOG FLEXPEN 16 UNITS SC (17:43)
[2025-01-20] MEDS: NOVOLOG FLEXPEN-LOW RESISTANCE 2 UNITS SC (17:44)
[2025-01-20] MEDS: LOVENOX 40 MG SC (17:45)
[2025-01-20 21:17] LABS: Glucose - Point of Care 234 mg/dl (70-99)
[2025-01-20] MEDS: LANTUS 0.25 UNITS SC (22:24)
[2025-01-20] MEDS: LIPITOR 10 MG PO (22:24)
[2025-01-21] VITALS (8 sets, daily range): BP systolic 116–155; BP diastolic 66–89; PULSE 89–93; O2SAT 95–96; BMI 41.6
[2025-01-21] MEDS: MELATONIN 3 MG PO ×2 (03:08→21:59)
--- NOTE | 2025-01-21 07:04 | CONS.URO ---
Consultation
-
Date/Time Consultation Requested: 01/20
Date/Time Consultation Performed: 01/21
Requesting Provider: Hospitalist
Performing Provider: [place]
Reason for Consultation: urinary retention, overflow incontinence, right hydronephrosis
Medical History
History of Present Illness
74F w/ chronic lower back pain presents w/ mid lower back pain w/ occasional radiation to right leg.
Has undergone outpatient work-up w/ PCP and orthopedic surgery - 'prior spinal injections did not improve pain.'
Pain significantly worsened in AM on 01/20 prompting EMS call.
Also endorses recent urinary frequency, urgency, and incontinence.
In ED, patient noted to have altered mental status - drifting to sleep and having difficulty focusing on conversation.
Denies N/V or F/C.
Denies constipation.
Past Medical History
Past Medical History: CHF (HFpEF), HTN, NIDDM and Other (dyslipidemia, chronic back pain, morbid obesity, suspected ANDREINA)
Past Surgical History: Appendectomy, Tonsilectomy and Other (right cataract surgery 07/2023)
Social History
Tobacco: Non-smoker
Alcohol: Occasional
Drug: None
Personal: Single
Living: Alone
Family History
Family History: Reviewed & Not Pertinent
Allergies/Home Medications
Allergies
Allergy/AdvReac Type Severity Reaction Status Date / Time
amoxicillin Allergy Nausea / Verified 12/22/24 18:31
Vomiting
erythromycin base (From Allergy slept on Verified 12/22/24 18:31
Erythrocin) BR due to
diarrhea
and
Vomiting
Home Medications
�Medication �Instructions �Recorded �Confirmed �Type
simvastatin 20 mg tablet 20 mg PO HS High cholesterol 08/21/20 01/20/25 History
insulin aspart U-100 100 unit/mL 16 unit SC MEALS Diabetes 09/03/22 01/20/25 History
(3 mL) subcutaneous pen (Novolog
FlexPen U-100 Insulin aspart)
insulin glargine 100 unit/mL (3 25 unit SC HS Diabetes 09/03/22 01/20/25 History
mL) subcutaneous pen (Lantus
Solostar U-100 Insulin)
carboxymethylcellulose sodium 0.5 2 drp BOTH EYES TIDPRN PRN dry eyes 12/13/22 01/20/25 History
% eye drops in a dropperette
(Refresh Plus)
cholecalciferol (vitamin D3) 25 50 mcg PO DAILY Supplement 12/13/22 01/20/25 History
mcg (1,000 unit) capsule (Vitamin
D3)
fluticasone propionate 50 2 spray intranasal BIDPRN PRN 12/13/22 01/20/25 History
mcg/actuation nasal allergies
spray,suspension
polyethylene glycol 3350 17 17 g PO DAILY Constipation 12/13/22 01/20/25 History
gram/dose oral powder (Miralax)
lisinopril 10 mg tablet 10 mg PO DAILY Blood pressure 1 05/29/24 01/20/25 Rx
month #30 tabs
acetaminophen 650 mg 1,300 mg PO TID mild pain 01/20/25 01/20/25 History
tablet,extended release
therapeutic multivitamin 2 tab PO DAILY Supplement 01/20/25 01/20/25 History
Review of Systems
-
History Source: Patient
A 12 point Review of Systems was completed except as noted: Yes
Physical Exam
Vital Signs
Vital Signs
Temp Pulse Resp BP Pulse Ox
98.6 F 85 18 135/88 95
01/21/25 03:09 01/21/25 03:09 01/21/25 03:09 01/21/25 03:09 01/21/25 03:09
Lab / Testing Results
Laboratory Results
01/20/25 09:15
Physical Exam
General: Well Nourished, No Apparent Distress and Comfortable
HEENT: Normocephalic and Anicteric
Respiratory: Non Labored Respirations
Cardiac: Regular Rhythm
Breast: Deferred by me
GI: Soft, Non Tender, Non Distended and Other (obese abdomen)
Rectal: Deferred by Provider
Genito-urinary: No Costovertebral Tend, Clear Urine and Dunlap Catheter
Musculoskeletal: No Edema
Skin: Warm and Dry
Neuro: AO x 3, No Motor Deficits and Nonfocal/Grossly Intact
Hematologic/Lymphatic: No Lymphadenopathy
Psych: Calm and Intact Judgement
Assessment / Plan
-
Urinary retention
Overflow incontinence
Mild right hydronephrosis - from suspected reflux
Frequency/urgency/overflow incontinence secondary to retention => Dunlap catheter placement advised in ED.
Cr WNL.
UA negative for UTI.
Exacerbation of acute on chronic lower back pain possible etiology of new urinary retention.
- Maintain Dunlap catheter to drainage until back to baseline
- Given absence of infection or LEVON - consider VT prior to discharge vs. outpatient
- Recommend CIC teaching if VT failed - if failed, consider outpatient bladder function testing (UDS/VUDS)
D/w Hospitalist
Data Reviewed
-
Total Time Spent with Patient (in minutes): 25
CT Scan: Image personally visualized and interpreted, Report Reviewed by Me, Discussed with Physician and Discussed with Patient
Lab Data: Labs Reviewed, Discussed with Physician and Discussed with Patient
Old Records: Reviewed
[2025-01-21 07:54] LABS: Glucose - Point of Care 142 mg/dl (70-99)
[2025-01-21] MEDS: NOVOLOG FLEXPEN-LOW RESISTANCE SC (08:32)
[2025-01-21] MEDS: DELTASONE 60 MG PO (08:47)
[2025-01-21] MEDS: LIDOCAINE 4% PATCH 1 PATCH TOPICAL (08:47)
[2025-01-21] MEDS: ZESTRIL 10 MG PO (08:47)
[2025-01-21] MEDS: DESENEX/MITRAZOL/ZEASORB 1 APPLIC TOPICAL ×2 (08:47→19:27)
[2025-01-21] MEDS: GAVILAX 17 GM PO (08:48)
[2025-01-21 08:54] LABS: Blood Urea Nitrogen 23 mg/dl (7-17); Calcium 9.4 mg/dl (8.4-10.2); Carbon Dioxide 31 mmol/L (22-30); Chloride 103 mmol/L (98-107); Estimated Creatinine Clearance 66 ml/min; Glucose 109 mg/dl (70-99); Potassium 4.9 mmol/L (3.5-5.1); Sodium 139 mmol/L (135-145); eGFR > 60.00
[2025-01-21] MEDS: NOVOLOG FLEXPEN 16 UNITS SC ×3 (09:01→18:06)
--- NOTE | 2025-01-21 09:06 | W.PN.HOSP.TC ---
Addendum entered and electronically signed by Ana Laura Tolliver MD 01/21/25 13:51:
Attending�addendum:
I saw and evaluated the patient independently. I reviewed and discussed the resident�s note and agree with findings and plan as documented in the resident�s note.� patient seen and examined at bedside, denies any chest pain or shortness of breath,
no abdominal pain, no nausea, no vomiting, no diarrhea or constipation.
Status post Dunlap, back pain improved
Physical�exam:
GENERAL : Patient is awake, alert, oriented x3
HEENT: Nonicteric sclerae, PERRLA, EOMI. Oropharynx clear. Moist mucous membranes. Conjunctivae appear well perfused.
CHEST: Chest wall is nontender.
HEART: Regular rate and rhythm without murmurs.
LUNGS: rales bilaterally.
ABDOMEN: Soft, positive bowel sounds, nontender, no organomegaly.
RECTAL: Deferred.
MUSCLES/EXTREMITIES: No abnormal range of motion, no swelling.SKIN: No rash, no excessive bruising, petechiae, or purpura.
NEUROLOGIC: Cranial nerves II-XII intact without motor/sensory deficit.
�
Assessment/plan:
Back pain.
Continue prednisone.
PT/OT, recommending rehab
Urinary retention
Status post Dunlap catheter.
Voiding trial
Acute hypoxemic respiratory failure.
Dropped oxygen to low 90s
Currently on 2-3 L
Wean oxygen.
Resume lasix
CODE STATUS: Full code
DVT prophylaxis: Lovenox
Diet: DM diet
Disposition: Discharge to rehab
�
Total time spent on today�s encounter was 51 minutes which included time spent in counseling the patient/family regarding diagnosis and treatment plan as listed above, goals of care, and symptom management. Case was discussed with nursing staff,
specialists, and care coordinators/case management. All labs and imaging personally reviewed by me. Remainder the time spent in detailed review of previous records, lab data, imaging, and other medical provider documentation.
Original Note:
Today's Communication/Plan
-
Trial of void
PT OT
Continue prednisone taper
Assessment / Plan
Assessment / Plan
74-year-old female with past medical history of HFpEF, type 2 diabetes, hypertension, hypercholesterolemia presents to the ER for evaluation of back pain. She has a history of chronic back pain however recently has gotten worse in her mid back to
the point where she called EMS this morning to be brought to the hospital. She also notes increased urinary frequency, urgency and stress incontinence. In the ED, she noted urinary retention and CT abdomen pelvis revealed borderline mild right
sided hydronephrosis with a 6.5 mm nonobstructing stone within the left kidney. There is also stranding noted in the lower anterior abdomen fixations in the bilateral flanks which could represent edema versus infection. She was started on a
prednisone taper and admitted for further evaluation of acute urinary retention and right-sided hydronephrosis.
Imaging:
Abdomen/pelvis CT without IV or oral contrast 01/20/2025:
There is borderline mild right sided hydronephrosis, however no discrete obstruction is identified. There is a 6.5 mm nonobstructing stone within the left kidney.
The urinary bladder is moderately distended.
There is stranding within the lower anterior abdominal wall which extends to the bilateral flanks which may represent edema, however a superficial infectious process cannot be excluded. Recommend direct visualization.
Colonic diverticulosis
Echocardiogram 07/31/2024:
Left ventricle is small in size. Hyperdynamic left ventricular systolic
function. Left ventricular ejection fraction is 70-75% by visual assessment.
Moderate concentric left ventricular hypertrophy.
Normal right ventricular size and function.
No significant valvular pathology within limits of the study quality
Plan:
Back pain secondary to hydronephrosis, nonobstructing stone within the left kidney versus acute on chronic osteoarthritic pain
-- Complaints of severe back pain, urinary urgency and frequency and stress incontinence
-- Abdomen/pelvis CT per above
-- Prednisone 60 mg taper, IV tylenol
-- Patient states after starting prednisone, pain significantly improved
-- PT/OT and urology appreciated
Acute urinary retention secondary to bladder outlet obstruction versus neurogenic bladder consistent with hydronephrosis on imaging
-- Dunlap placed in ED for acute retention - PVR 507 in ED
-- Appreciate urology
-- Trial of void per urology with instructions on how to self cath in case cath needed chronically
Altered mental status in setting of acute hypoxemic respiratory failure vs UTI vs other
-- Patient awake alert and oriented this morning
-- ABG revealed chronic hypoxemic and hypercapnic respiratory failure
-- Continue CPAP and baseline oxygen 2 to 3 L
Insulin dependent DM2
-- Hga1c 7.7
-- Glargine 25, Aspart 16 with SSI
HX Chronic HFpEF without acute exacerbation
-- home metoprolol, lisinopril
Essential HTN
-- on metoprolol and lisinopril
HLD
-- Continue simvastatin 20
BMI 42 - Morbid obesity
Chronic ambulatory dysfunction - use roller aid
Lives with sister
-- CRM evaluation
DVT lovenox
Full Code
Diabetic diet
Anticipated Discharge: Within 24 hours
Subjective/Interval History
-
Date of Service: January 21, 2025
States that overnight her back pain has gotten significantly better. Now endorses some burning with urination after the catheter was placed.
Objective Data
-
Labs:
Laboratory Results
01/21/25
07:45
Sodium 139
Potassium 4.9
Chloride 103
Carbon Dioxide 31 H
BUN 23 H
Creatinine 0.7
Glucose 109 H
Calcium 9.4
Vital Signs:
Vital Signs
Temp Pulse Resp BP Pulse Ox
97.6 F 85 18 155/89 97
01/21/25 07:25 01/21/25 07:25 01/21/25 07:25 01/21/25 07:25 01/21/25 07:25
I&O
01/20/25 01/21/25 01/22/25
06:59 06:59 06:59
Output Total 525 / 525
Balance -525 / -525
Review of Systems
-
History Source: Patient
Constitutional: Reports No Symptoms
EENT: Reports No Symptoms Reported
Respiratory: Reports No Symptoms
Cardiac: Reports No Symptoms
Abdomen/GI: Reports No Symptoms
Genitourinary: Reports Dysuria
Musculoskeletal: Reports No Symptoms
Skin: Reports No Symptoms
Neuro: Reports No Symptoms
Allergy / Immunology: Reports No Symptoms
Physical Exam
-
General: No Apparent Distress
HEENT: Normocephalic
Respiratory: Clear to Auscultation
Cardiac: Regular Rhythm and S1/S2
GI: Soft, Nontender, Normal Bowel Sounds and Distended
Genito-urinary: Clear Urine and Dunlap
Musculoskeletal: Edema, Right Lower Extrem, Edema, Left Lower Extrem and Other ( )
Skin: Warm, Dry and Other (venous stasis dermatitis around bilateral ankles )
Neuro: AO x 3
Psych: Calm
[2025-01-21 09:46] LABS: Glycohemoglobin (HgbA1c) 7.7 % (4.0-5.9)
[2025-01-21 11:31] LABS: Glucose - Point of Care 206 mg/dl (70-99)
[2025-01-21] MEDS: NOVOLOG FLEXPEN-LOW RESISTANCE 2 UNITS SC (13:45)
--- NOTE | 2025-01-21 16:01 | PTCARENOTE ---
Patient has refused 40mg Lasix PO. Education was provided on why it was ordered and why it is important to take it. MD was notified.
--- NOTE | 2025-01-21 16:17 | CM ---
Addendum entered by Elin Jennings 01/21/25 16:24:
DOLL given and placed in chart. Pt is upset at the possiblity that she may have a copay. Pt encouraged to call her insurance company'
Original Note:
Met with pt chairside. IA completed, Pt states she is independent with ADLs and IADLs. She lives alone in an apartment in [place]. No insecurities identified. Confirmed PCP, Rx, insurance and drug coverage.
PCP: Geri Ramirez
Rx: [facility]/ [facility]
Is current with [facility] with PT and OT. referral placed for resumption of care. DME: rolling walker. No hx of home O2.
Pt is currently on room air.
Hx of SNF at [facility] and refuses to go to any SNF. She is aware of PT rec for SNF.
Plan: discharge to home with [facility].
[2025-01-21] MEDS: REFRESH CELLUVISC GEL 2 DROPS BOTH EYES (16:18)
[2025-01-21 16:45] LABS: Glucose - Point of Care 299 mg/dl (70-99)
[2025-01-21] MEDS: LOVENOX 40 MG SC (18:07)
[2025-01-21] MEDS: NOVOLOG FLEXPEN-LOW RESISTANCE 3 UNITS SC (18:07)
[2025-01-21 21:05] LABS: Urine Character Clear (Clear)
[2025-01-21 21:21] LABS: Urine Red Blood Cell 16-20 /HPF (0-2); Urine Squamous Cell 26-30 /LPF (Few); Urine White Cell 16-20 /HPF (0-5)
[2025-01-21 21:44] LABS: Glucose - Point of Care 213 mg/dl (70-99)
[2025-01-21] MEDS: LIPITOR 10 MG PO (21:59)
[2025-01-21] MEDS: LANTUS 0.25 UNITS SC (21:59)
--- NOTE | 2025-01-21 21:59 | RESPNOTE ---
Noct pox on and working. educated the patient on it. patient currently on r/a. vitals stable. Rn notified
[2025-01-22 03:55] VITALS: BP 148/97
[2025-01-22 06:00] VITALS: BMI 40.6
--- NOTE | 2025-01-22 07:14 | W.PN.HOSP.TC ---
Addendum entered and electronically signed by Angela Nugent MD, Resident 01/22/25 14:47:
Acute hypoxemic respiratory failure
-- Nocturnal pulse ox revealed > 6 minutes O2 <89% - refuses to wear CPAP at home - now qualifies for nocturnal O2
-- Exercise O2 assessment revealed sats dropping to 85 with ambulation. Per respiratory therapy, recommend 2L O2 with ambulation.
-- Discharge with O2 to be used at night and with ambulation.
Addendum entered and electronically signed by Ana Laura Tolliver MD 01/22/25 11:41:
Attending�addendum:
I saw and evaluated the patient independently. I reviewed and discussed the resident�s note and agree with findings and plan as documented in the resident�s note.� patient seen and examined at bedside, denies any chest pain or shortness of breath,
no abdominal pain, no nausea, no vomiting, no diarrhea or constipation.
Dunlap removed and patient able to void, dysuria improved.
Physical recommending rehab but patient wants to go home.
Physical�exam:
GENERAL : Patient is awake, alert, oriented x3
HEENT: Nonicteric sclerae, PERRLA, EOMI. Oropharynx clear. Moist mucous membranes. Conjunctivae appear well perfused.
CHEST: Chest wall is nontender.
HEART: Regular rate and rhythm without murmurs.
LUNGS: rales bilaterally.
ABDOMEN: Soft, positive bowel sounds, nontender, no organomegaly.
RECTAL: Deferred.
MUSCLES/EXTREMITIES: No abnormal range of motion, no swelling.SKIN: No rash, no excessive bruising, petechiae, or purpura.
NEUROLOGIC: Cranial nerves II-XII intact without motor/sensory deficit.
�
Assessment/plan:
Back pain.
Continue prednisone.
PT/OT, recommending rehab
Urinary retention
Dnulap removed, passed voiding trial
Acute hypoxemic respiratory failure.
Secondary to obstructive sleep apnea/chronic diastolic CHF
Dropped oxygen to low 90s
Patient refused Lasix
Nocturnal pulse ox done, dropped to 89% > 6 minutes.
Exertion pulse oximetry to be done today
Chronic diastolic CHF.
Patient refusing lasix
CODE STATUS: Full code
DVT prophylaxis: Lovenox
Diet: DM diet
Disposition: Physical therapy recommend discharge to rehab but patient refusing rehab.
Total time spent on today's encounter was 51 minutes which included time spent in counseling the patient/family regarding diagnosis and treatment plan as listed above, goals of care, and symptom management. Case was discussed with nursing staff,
specialists, and care coordinators/case management. All labs and imaging personally reviewed by me. Remainder the time spent in detailed review of previous records, lab data, imaging, and other medical provider documentation.
Original Note:
Today's Communication/Plan
-
Continue prednisone taper
Exercise O2 assessment
Discharge when SNF available
Assessment / Plan
Assessment / Plan
74-year-old female with past medical history of HFpEF, type 2 diabetes, hypertension, hypercholesterolemia presents to the ER for evaluation of back pain. She has a history of chronic back pain however recently has gotten worse in her mid back to
the point where she called EMS this morning to be brought to the hospital. She also notes increased urinary frequency, urgency and stress incontinence. In the ED, she noted urinary retention and CT abdomen pelvis revealed borderline mild right
sided hydronephrosis with a 6.5 mm nonobstructing stone within the left kidney. There is also stranding noted in the lower anterior abdomen fixations in the bilateral flanks which could represent edema versus infection. She was started on a
prednisone taper and admitted for further evaluation of acute urinary retention and right-sided hydronephrosis.
Imaging:
Abdomen/pelvis CT without IV or oral contrast 01/20/2025:
There is borderline mild right sided hydronephrosis, however no discrete obstruction is identified. There is a 6.5 mm nonobstructing stone within the left kidney.
The urinary bladder is moderately distended.
There is stranding within the lower anterior abdominal wall which extends to the bilateral flanks which may represent edema, however a superficial infectious process cannot be excluded. Recommend direct visualization.
Colonic diverticulosis
Echocardiogram 07/31/2024:
Left ventricle is small in size. Hyperdynamic left ventricular systolic
function. Left ventricular ejection fraction is 70-75% by visual assessment.
Moderate concentric left ventricular hypertrophy.
Normal right ventricular size and function.
No significant valvular pathology within limits of the study quality
Plan:
Back pain secondary to hydronephrosis, nonobstructing stone within the left kidney versus acute on chronic osteoarthritic pain
-- Complaints of severe back pain, urinary urgency and frequency and stress incontinence
-- Abdomen/pelvis CT per above
-- Prednisone taper 60 x2 days completed, today start 40 x2 days
-- Patient states after starting prednisone, pain significantly improved
-- PT/OT and urology appreciated
Acute urinary retention secondary to bladder outlet obstruction versus neurogenic bladder consistent with hydronephrosis on imaging
-- Dunlap placed in ED for acute retention - PVR 507 in ED
-- Appreciate urology
-- Trial of void per urology with instructions on how to self cath in case cath needed chronically - passed TOV
Burning with urination
-- UA culture contaminated and UA unremarkable for acute UTI, but patient complaining of significant burning after cath placement - likely mechanical
-- Repeat UA for reassurance - start pyridium - UA culture pending
Leukocytosis
-- Likely secondary to steroids rather than overt infection.
Acute hypoxemic respiratory failure
-- dropped to the low 90s
-- 2-3L O2 as needed to keep O2 >92%, wean as able
-- patient should be taking lasix at home, but refuses because it makes her 'pee too much' - resume lasix 40mg PO daily - patient refusing in hospital
-- Noctural pulse ox revealed > 6 minutes O2 <89% - refuses to wear CPAP at home - now qualifies for nocturnal O2
-- Exercise O2 assessment pending
Insulin dependent DM2
-- Hga1c 7.7
-- Glargine 25, Aspart 16 with SSI
HX Chronic HFpEF without acute exacerbation
-- home metoprolol, lisinopril, lasix 40mg daily
Essential HTN
-- on metoprolol and lisinopril
HLD
-- Continue simvastatin 20
BMI 42 - Morbid obesity
Chronic ambulatory dysfunction - use roller aid
Lives with sister
-- CRM evaluation
DVT lovenox
Full Code
Diabetic diet
Anticipated Discharge: Within 24 hours
Subjective/Interval History
-
Date of Service: January 22, 2025
Patient says she feels better overnight. States the burning with urination has decreased significantly and she has been peeing on her own without difficulty. She adamantly refuses to take Lasix because it makes her pee too much and she does not
like getting up to use the bathroom that frequently. Denies any shortness of breath or chest pain.
Objective Data
-
Labs:
Laboratory Results
01/22/25
06:00
WBC Pending
Hgb Pending
Hct Pending
Plt Count Pending
Sodium Pending
Potassium Pending
Chloride Pending
Carbon Dioxide Pending
BUN Pending
Creatinine Pending
Glucose Pending
Calcium Pending
Vital Signs:
Vital Signs
Temp Pulse Resp BP Pulse Ox
97.5 F 82 19 148/97 94
01/22/25 03:55 01/22/25 03:55 01/22/25 03:55 01/22/25 03:55 01/22/25 03:55
I&O
01/21/25 01/22/25 01/23/25
06:59 06:59 06:59
Intake Total 600 / 600
Output Total 525 / 525 1475 / 1475
Balance -525 / -525 -875 / -875
Review of Systems
-
History Source: Patient
EENT: Reports No Symptoms Reported
Respiratory: Reports No Symptoms
Cardiac: Reports No Symptoms
Abdomen/GI: Reports No Symptoms
Genitourinary: Reports Dysuria
Musculoskeletal: Reports No Symptoms
Skin: Reports No Symptoms
Neuro: Reports No Symptoms
Physical Exam
-
General: Comfortable
HEENT: Normocephalic
Respiratory: Other (Diminished breath sounds due to poor inspiratory effort. )
Cardiac: Regular Rhythm and S1/S2
GI: Soft, Nontender, Nondistended and Normal Bowel Sounds
Musculoskeletal: Edema, Right Lower Extrem and Edema, Left Lower Extrem
Skin: Warm and Dry
Neuro: AO x 3
Psych: Calm
[2025-01-22 07:25] VITALS: BP 127/73
[2025-01-22 07:36] LABS: Glucose - Point of Care 118 mg/dl (70-99)
[2025-01-22 07:41] LABS: Hematocrit 41.6 % (37.0-47.0); Hemoglobin 12.6 g/dL (12.0-16.0); Mean Corp Hgb Conc. 30.3 g/dL (33.0-37.0); Mean Corpuscular Volume 90.4 fL (81.0-99.0); Platelet Count 292 10^3/uL (130-400); Red Cell Dist. Width 14.4 % (11.5-14.5)
[2025-01-22] MEDS: NOVOLOG FLEXPEN-LOW RESISTANCE SC ×2 (07:44→13:08)
[2025-01-22] MEDS: ZESTRIL 10 MG PO (08:05)
[2025-01-22] MEDS: DELTASONE 40 MG PO (08:05)
[2025-01-22] MEDS: LIDOCAINE 4% PATCH 1 PATCH TOPICAL (08:08)
[2025-01-22] MEDS: DESENEX/MITRAZOL/ZEASORB 1 APPLIC TOPICAL (08:09)
[2025-01-22] MEDS: GAVILAX 17 GM PO (08:10)
[2025-01-22] MEDS: NOVOLOG FLEXPEN SC (08:13)
[2025-01-22 08:35] LABS: Blood Urea Nitrogen 24 mg/dl (7-17); Estimated Creatinine Clearance 75 ml/min; Glucose 113 mg/dl (70-99)
[2025-01-22 08:36] LABS: Calcium 9.5 mg/dl (8.4-10.2); Chloride 100 mmol/L (98-107); Potassium 4.5 mmol/L (3.5-5.1); Sodium 138 mmol/L (135-145); eGFR > 60.00
--- NOTE | 2025-01-22 08:40 | CON.MD ---
Documented by User: Sho Villanueva PA-C 01/22/25 10:56
Consultation - Medical
-
Referring Provider:�Ana Laura Montano
Chief Complaint:�acute on chronic back Pain
�
History of Present Illness:�74-year-old female with past medical history of HFpEF, type 2 diabetes, hypertension, hypercholesterolemia presents to the ER for evaluation of back pain. She has a history of chronic back pain however recently has
gotten worse in her mid back to the point where she called EMS this morning to be brought to the hospital. She also notes increased urinary frequency, urgency and stress incontinence. In the ED, she noted urinary retention and CT abdomen pelvis
revealed borderline mild right sided hydronephrosis with a 6.5 mm nonobstructing stone within the left kidney. There is also stranding noted in the lower anterior abdomen fixations in the bilateral flanks which could represent edema versus
infection. She was started on a prednisone taper and admitted for further evaluation of acute urinary retention and right-sided hydronephrosis. Dunlap catheter was maintained for drainage until back to baseline. Catheter was removed yesterday.
Patient has been voiding on her own.
Abdomen/pelvis CT without IV or oral contrast 01/20/2025:
There is borderline mild right sided hydronephrosis, however no discrete obstruction is identified. There is a 6.5 mm nonobstructing stone within the left kidney.
The urinary bladder is moderately distended.
There is stranding within the lower anterior abdominal wall which extends to the bilateral flanks which may represent edema, however a superficial infectious process cannot be excluded. Recommend direct visualization.
Colonic diverticulosis
Dunlap catheter placement was done in the ED. UA negative for UTI. Exacerbation of acute on chronic lower back pain thought to be possible due to new urinary retention. Dunlap catheter was maintained for drainage until back to baseline. Catheter
was removed yesterday. Patient has been voiding on her own. Given absence of infection or LEVON - consider Voiding trials prior to discharge vs. outpatient.
Echocardiogram 07/31/2024:
Left ventricle is small in size. Hyperdynamic left ventricular systolic
function. Left ventricular ejection fraction is 70-75% by visual assessment.
Moderate concentric left ventricular hypertrophy.
Normal right ventricular size and function.
No significant valvular pathology within limits of the study quality
Past Medical History:� acute hypoxemic and hypercapnic respiratory failure, Hypercholesterolemia, NIDDM, CHF, HTN, HLD, Obesity 3
Procedure History:�Appendectomy and Tonsillectomy, epidural steroid injections, right cataract surgery-2023,
Family History:�non contributory
�
Social History:�
Functional Level Premorbidly:�Independent with all activities�
Functional Level Currently:�Transfer- mod assist, needs assistance getting up from sitting to standing, grooming and [id number], toileting, lower extremity care-dependent, ambulation: took couple of steps forward then backward and sat feeling
shaky.
�
Tobacco:�Denies�
Alcohol:�Denies�
Drug use:�Denies�
�
Lives with:�Alone
24-hour assistance available:�
Number of floors:�3rd floor apartment takes elevator
# steps to enter:0�
# steps to second floor:na
Potential First floor set up:�yes
Driving:�no
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
�
�
Allergies:�
Allergy/AdvReac Type Severity Reaction Status Date / Time
amoxicillin Allergy Nausea / Verified 12/22/24 18:31
Vomiting
erythromycin base (From Allergy slept on Verified 12/22/24 18:31
Erythrocin) BR due to
diarrhea
and
Vomiting
�
Review of Systems:�
Constitutional: (x) Normal _
Eye: (x) Normal _
Ear/Nose/Throat: (x) Normal _
Respiratory: (x) abNormal _hypoxemia on oxygen
Cardiovascular: (x) Normal _
Gastrointestinal: (x) Normal _
Genitourinary: (x) abNormal _urinary retention, hydronephrosis
Musculoskeletal: (x) abNormal _ back pain
Integumentary: (x) Normal _
Neurologic: (x) Normal _
Psychiatric: (x) Normal _
Endocrine: (x) abNormal _DM
Hematologic/Lymphatic: (x) Normal _
Allergic/Immunologic: (x) Normal _
�
Medications:�
Active Current Visit Medication List
Category Date Time Status
Acetaminophen [Tylenol] Med 01/20/25 17:36 Active
650 mg PO Q4HPRN PRN
Atorvastatin [Lipitor] Med 01/20/25 22:00 Active
10 mg PO HS
Carboxymethylcellulose [Refresh Celluvisc Gel] Med 01/20/25 15:13 Active
2 drops BOTH EYES TIDPRN PRN
Dextrose 50%-Water [Dextrose 50% Syringe] Med 01/20/25 14:54 Active
12.5 grams IV [id number] PRN
Enoxaparin Sodium [Lovenox] Med 01/20/25 18:00 Active
40 mg SC QPM
Glucagon [GlucaGen] Med 01/20/25 14:54 Active
1 mg IM PRN PRN
Insulin Aspart Corrective Low [Novolog Flexpen-Low Med 01/20/25 16:30 Active
Resistance]
See Protocol SC AC
Insulin Aspart Pen [Novolog Flexpen] Med 01/20/25 17:30 Active
16 units SC MEALS
Insulin Glargine Lantus [Lantus] 25 units Med 01/20/25 22:00 Active
Subcutaneous Insulin Syringe [Syringe-Insulin] 0 unit
SC HS
Lidocaine [Lidocaine 4% Patch] Med 01/20/25 09:15 Active
1 patch TOPICAL DAILY
Lisinopril [Zestril] Med 01/21/25 08:00 Active
10 mg PO DAILY
Melatonin Med 01/21/25 22:00 Active
3 mg PO HS
Miconazole Nitrate [Desenex/Mitrazol/Zeasorb] Med 01/21/25 08:00 Active
See Dose Instructions TOPICAL BID
Polyethylene Glycol 3350 [Gavilax] Med 01/21/25 08:00 Active
17 gm PO DAILY
Prednisone [Deltasone] Med 01/21/25 08:00 Active
60 mg PO DAILY
�
Vitals:�
Labs
WBC 11.4 10^3/uL (4.8-10.8) H 01/22/25 07:29
RBC 4.60 10^6/uL (4.20-5.40) 01/22/25 07:29
Hgb 12.6 g/dL (12.0-16.0) 01/22/25 07:
Hct 41.6 % (37.0-47.0) 01/22/25 07:29
MCV 90.4 fL (81.0-99.0) 01/22/25 07:
MCH 27.4 pg (27.0-31.0) 01/22/25 07:
MCHC 30.3 g/dL (33.0-37.0) L 01/22/25 07:29
RDW 14.4 % (11.5-14.5) 01/22/25 07:29
Plt Count 292 10^3/uL (130-400) 01/22/25 07:29
MPV 8.9 fL (7.4-10.4) 01/22/25 07:29
Abs Immat Gran (auto) 0.0 10^3/uL (0-0.05) 01/20/25 09:15
Absolute Neuts (auto) 5.3 10^3/uL (1.4-6.5) 01/20/25 09:15
Absolute Lymphs (auto) 1.4 10^3/uL (1.2-3.4) 01/20/25 09:15
Absolute Monos (auto) 0.6 10^3/uL (0.1-0.6) 01/20/25 09:15
Absolute Eos (auto) 0.2 10^3/uL (0-0.7) 01/20/25 09:15
Absolute Basos (auto) 0.1 10^3/uL (0-0.2) 01/20/25 09:15
Immature Gran % 0.5 % (0-0.5) 01/20/25 09:15
Neutrophils % 70.0 % (42.2-75.2) 01/20/25 09:15
Lymphocytes % 18.7 % (20.5-51.1) L 01/20/25 09:15
Monocytes % 7.6 % (1.7-9.3) 01/20/25 09:15
Eosinophils % 2.5 % (0-6) 01/20/25 09:15
Basophils % 0.7 % (0-2) 01/20/25 09:15
Nucleated RBC % 0 % 01/20/25 09:15
pH 7.42 (7.35-7.45) 01/20/25 13:18
pCO2 50 mmHg (32-35) H 01/20/25 13:18
pO2 64 mmHg (83-108) L 01/20/25 13:18
HCO3 32.4 mmol/L (21-28) H 01/20/25 13:18
Base Excess 6.7 mmol/L 01/20/25 13:18
ABG O2 Sat (Measured) 92.9 % (94-98) L 01/20/25 13:18
O2 Delivery Level 01/20/25 13:18
Sodium 139 mmol/L (135-145) 01/21/25 07:45
Potassium 4.9 mmol/L (3.5-5.1) 01/21/25 07:45
Chloride 103 mmol/L (98-107) 01/21/25 07:45
Carbon Dioxide 31 mmol/L (22-30) H 01/21/25 07:45
BUN 23 mg/dl (7-17) H 01/21/25 07:45
Creatinine 0.7 mg/dL (0.6-1.0) 01/21/25 07:45
Estimated Creat Clear 66 ml/min 01/21/25 07:45
eGFR > 60.00 01/21/25 07:45
Glucose 109 mg/dl (70-99) H 01/21/25 07:45
Hemoglobin A1c 7.7 % (4.0-5.9) H 01/21/25 07:45
Calcium 9.4 mg/dl (8.4-10.2) 01/21/25 07:45
Total Bilirubin 0.5 mg/dl (0.2-1.3) 01/20/25 09:15
AST 22 U/L (14-36) 01/20/25 09:15
ALT 24 U/L (0-35) 01/20/25 09:15
Alkaline Phosphatase 64 U/L (38-126) 01/20/25 09:15
Total Protein 6.7 g/dl (6.3-8.2) 01/20/25 09:15
Albumin 4.1 g/dl (3.5-5.0) 01/20/25 09:15
Urine Color Perri 01/21/25 20:56
Urine Clarity Clear (Clear) 01/21/25 20:56
Urine pH 5.0 (5.0-9.0) 01/21/25 20:56
Ur Specific Dixon 1.020 (<1.030) 01/21/25 20:56
Urine Ketones Negative (Negative) 01/21/25 20:56
Ur Occult Blood Reflex 1+ (Negative) A 01/21/25 20:56
Urine Nitrite (Reflex) Negative (Negative) 01/21/25 20:56
Urine Bilirubin Negative (Negative) 01/21/25 20:56
Urine Urobilinogen Negative (Neg - 1+) 01/21/25 20:56
Leukocyte Esterase Rfl 1+ (Negative) A 01/21/25 20:56
Urine RBC 16-20 /HPF (0-2) A 01/21/25 20:56
Urine WBC (Reflex) 16-20 /HPF (0-5) A 01/21/25 20:56
Ur Squamous Epith Cells 26-30 /LPF (Few) 01/21/25 20:56
Urine Bacteria (Reflex) Few (Negative) A 01/21/25 20:56
Urine Glucose 4+ (Negative) A 01/21/25 20:56
Urine Albumin (Reflex) Negative (Neg - Trace) 01/21/25 20:56
POC Glucose 118 mg/dl (70-99) H 01/22/25 07:34
�
Physical Exam:�
General Appearance/Observation: Well-developed, well-nourished individual in no apparent distress.�seated in chair with cannula off her nose
Pain/Comfort Assessment: back
Mood/Affect: Appropriate�
�
Integumentary/Operative Site:
�� Pressure Ulcer Evaluation: absent over heels.�
��
�� Other Type of Wound: absent�
��
�
Eyes: Conjunctiva/Lids: normal���� Pupils: pupils equal round
Ears/Nose/Throat: oral mucosa moist,� throat clear.������������ Lips/Teeth/Gums: normal�
Neck: No muscle spasm or tenderness�
Cardiovascular: Heart: regular, no murmur�
Pulses: dorsalis pedis 2+ bilaterally�
Respiratory: Respiratory Effort/Chest Expansion: normal������� Auscultation: rales bilaterally�
Gastrointestinal: mild tenderness left abdomen , no distension, normal abdominal bowel sounds
Genitourinary: No Dunlap�
Extremities:�Edema: bilateral legs�Cyanosis: None�Trophic�changes: None
�
Neurology Exam:
Orientation: Alert, Oriented to self, Time, Place�
Memory: Intact for immediate medical concerns
Comprehension: Intact
Two step command: Intact
Naming: Intact
Cranial Nerves:
�� CNII:�Pupillary light reflex: Intact����Visual Field: Intact
�� CN III, IV, : Extraocular muscles: Intact�
�� CN V:�Facial Sensation�at�Forehead: Intact,�Maxilla: Intact,�Mandible: Intact
�� CN VII:�Facial movement: Symmetric
�� CN VIII:�Hearing: Normal
�� CN IX/X:�Speech & swallow: Normal,�Position of Uvula: Midline
�� CN XI:�Shoulder shrug: Symmetric
�� CN XII:�Tongue protrusion: Midline
Sensory:
�� Light touch: Intact in bilateral upper and lower extremities
��
�
Reflexes:
�� Biceps: 2+ bilaterally
�� Brachioradialis: 2+ bilaterally
�� Triceps: 2+ bilaterally
�� Patellar: 2+ bilaterally
�� Achilles: 2+ bilaterally
�� Babinski: Down going bilaterally
�� Clonus: None
�� Dora: Negative bilaterally�
Cerebellar: Dysmetria/Ataxia: NT
Musculoskeletal:
Motor: (Manual muscle scale 0-5)�
Muscle SA EF WE EE FF FA HF KE DF EHL PF
Right� 5 5 5 5 5 4 4 5 5 4
Left 5 5 5 5 5 4 5 5 5 4
�
Tone: Normal in all extremities�
Range of Motion: Passively within normal limits in all extremities�
�
Lab Results:
Labs
WBC 11.4 10^3/uL (4.8-10.8) H 01/22/25 07:29
RBC 4.60 10^6/uL (4.20-5.40) 01/22/25 07:29
Hgb 12.6 g/dL (12.0-16.0) 01/22/25 07:29
Hct 41.6 % (37.0-47.0) 01/22/25 07:29
MCV 90.4 fL (81.0-99.0) 01/22/25 07:29
MCH 27.4 pg (27.0-31.0) 01/22/25 07:
MCHC 30.3 g/dL (33.0-37.0) L 01/22/25 07:29
RDW 14.4 % (11.5-14.5) 01/22/25 07:29
Plt Count 292 10^3/uL (130-400) 01/22/25 07:29
MPV 8.9 fL (7.4-10.4) 01/22/25 07:29
Abs Immat Gran (auto) 0.0 10^3/uL (0-0.05) 01/20/25 09:15
Absolute Neuts (auto) 5.3 10^3/uL (1.4-6.5) 01/20/25 09:15
Absolute Lymphs (auto) 1.4 10^3/uL (1.2-3.4) 01/20/25 09:15
Absolute Monos (auto) 0.6 10^3/uL (0.1-0.6) 01/20/25 09:15
Absolute Eos (auto) 0.2 10^3/uL (0-0.7) 01/20/25 09:15
Absolute Basos (auto) 0.1 10^3/uL (0-0.2) 01/20/25 09:15
Immature Gran % 0.5 % (0-0.5) 01/20/25 09:15
Neutrophils % 70.0 % (42.2-75.2) 01/20/25 09:15
Lymphocytes % 18.7 % (20.5-51.1) L 01/20/25 09:15
Monocytes % 7.6 % (1.7-9.3) 01/20/25 09:15
Eosinophils % 2.5 % (0-6) 01/20/25 09:15
Basophils % 0.7 % (0-2) 01/20/25 09:15
Nucleated RBC % 0 % 01/20/25 09:15
pH 7.42 (7.35-7.45) 01/20/25 13:18
pCO2 50 mmHg (32-35) H 01/20/25 13:18
pO2 64 mmHg (83-108) L 01/20/25 13:18
HCO3 32.4 mmol/L (21-28) H 01/20/25 13:18
Base Excess 6.7 mmol/L 01/20/25 13:18
ABG O2 Sat (Measured) 92.9 % (94-98) L 01/20/25 13:18
O2 Delivery Level 01/20/25 13:18
Sodium 139 mmol/L (135-145) 01/21/25 07:45
Potassium 4.9 mmol/L (3.5-5.1) 01/21/25 07:45
Chloride 103 mmol/L (98-107) 01/21/25 07:45
Carbon Dioxide 31 mmol/L (22-30) H 01/21/25 07:45
BUN 23 mg/dl (7-17) H 01/21/25 07:45
Creatinine 0.7 mg/dL (0.6-1.0) 01/21/25 07:45
Estimated Creat Clear 66 ml/min 01/21/25 07:45
eGFR > 60.00 01/21/25 07:45
Glucose 109 mg/dl (70-99) H 01/21/25 07:45
Hemoglobin A1c 7.7 % (4.0-5.9) H 01/21/25 07:45
Calcium 9.4 mg/dl (8.4-10.2) 01/21/25 07:45
Total Bilirubin 0.5 mg/dl (0.2-1.3) 01/20/25 09:15
AST 22 U/L (14-36) 01/20/25 09:15
ALT 24 U/L (0-35) 01/20/25 09:15
Alkaline Phosphatase 64 U/L (38-126) 01/20/25 09:15
Total Protein 6.7 g/dl (6.3-8.2) 01/20/25 09:15
Albumin 4.1 g/dl (3.5-5.0) 01/20/25 09:15
Urine Color Perri 01/21/25 20:56
Urine Clarity Clear (Clear) 01/21/25 20:56
Urine pH 5.0 (5.0-9.0) 01/21/25 20:56
Ur Specific Dixon 1.020 (<1.030) 01/21/25 20:56
Urine Ketones Negative (Negative) 01/21/25 20:56
Ur Occult Blood Reflex 1+ (Negative) A 01/21/25 20:56
Urine Nitrite (Reflex) Negative (Negative) 01/21/25 20:56
Urine Bilirubin Negative (Negative) 01/21/25 20:56
Urine Urobilinogen Negative (Neg - 1+) 01/21/25 20:56
Leukocyte Esterase Rfl 1+ (Negative) A 01/21/25 20:56
Urine RBC 16-20 /HPF (0-2) A 01/21/25 20:56
Urine WBC (Reflex) 16-20 /HPF (0-5) A 01/21/25 20:56
Ur Squamous Epith Cells 26-30 /LPF (Few) 01/21/25 20:56
Urine Bacteria (Reflex) Few (Negative) A 01/21/25 20:56
Urine Glucose 4+ (Negative) A 01/21/25 20:56
Urine Albumin (Reflex) Negative (Neg - Trace) 01/21/25 20:56
POC Glucose 118 mg/dl (70-99) H 01/22/25 07:34
�
Diagnostic Results:�as per HPI�
�There is borderline mild right sided hydronephrosis, however no discrete obstruction is identified.
There is a 6.5 mm nonobstructing stone within the left kidney.
The urinary bladder is moderately distended.
There is stranding within the lower anterior abdominal wall which extends to the bilateral flanks which may represent edema, however a superficial infectious process cannot be excluded.
Recommend direct visualization.
Colonic diverticulosis.
07/31/24 TTE
Left ventricle is small in size. Hyperdynamic left ventricular systolic
function. Left ventricular ejection fraction is 70-75% by visual assessment.
Moderate concentric left ventricular hypertrophy.
Normal right ventricular size and function.
No significant valvular pathology within limits of the study quality
Compared to prior study dated 05/28/2024, there is no significant change
Assessment:74-year-old female with past medical history of HFpEF, type 2 diabetes, hypertension, hypercholesterolemia presented with acute on chronic low back pain found to have urinary retention, acute on chronic hypoxemia on oxygen and associated
ambulatory and ADLs dysfunction.
�
Plan�
PM&R�PT/OT to increase independence with ADLs, improve balance, coordination, endurance, strength, mobility, community reintegration, decreased burden of care on others and family education.�
Acute on chronic back pain: due to arthritis vs hydronephrosis, nonobstructing stone within the left kidney
-- Prednisone 60 mg taper, lidocaine patch
Acute hypoxemic respiratory failure: ABG revealed chronic hypoxemic and hypercapnic respiratory failure. Patient on chronic O2 via cannula
HTN: metoprolol and lisinopril
HLD: Atorvastatin 10 mg at bedtime
Chronic HFpEF :without acute exacerbation, lisinopril, furosemide 40 mg daily
IDDM II: Hga1c 7.7 Accu-Cheks, insulin sliding scale, Glargine 25, Aspart 16 .�
ANDREINA: CPAP and and baseline oxygen 2 to 3 L�
Leukocytosis: Most likely reactive due to steroids
Psych: Psychology consult.� Monitor mood, adjust medications as needed.�
Skin: monitor for pressure sores/rashes/lesions.�
Pain: acetaminophen as needed.� Lidocaine patch
Bowel: Colace and Senna, PRN bisacodyl.�
Acute urinary retention: secondary to bladder outlet obstruction versus neurogenic bladder consistent with hydronephrosis on imaging. Dunlap removed 111/24.Some burning. Time void, PVRs, PRN straight cath.� Pyridium 200 mg 3 times daily as needed
GI Prophylaxis: Pantoprazole�
DVT Prophylaxis: mechanical and lovenox
Pulmonary: Incentive spirometry�
Obesity 3: Continue to academic counselor patient about diet adjustments to control obesity. Body habitus and increased force to move body and extremities causes further difficulty with functional tasks.�
Safety: Continue to reinforce assistance with all transfers.�
Code Status:� Full code �
Dispo�(date/plan/equipment needs): Home with family care.� Social history reviewed.�
�
Functional and Medical Goals:�Modified Independent with ADL�s, ambulation, transfers�
�
Discharge Destination:�Patient with ambulatory dysfunction due to acute on chronic lower back pain, acute on chronic hypoxemia and urinary retention would benefit from continued PT/OT at acute inpatient or SNF. Patient adamantly prefers to continue
at home therapy as she has been getting both therapies at home from a prior hospitalization. She does not wish to be in the hospital for Thanksgiving and desires to be with a large group of people in her development for meals.
Thank you for allowing me to care for your patient. Please contact me with any questions or concerns.
Consultation
-
Date/Time Consultation Requested: 01/20/2025
Date/Time Consultation Performed:
Requesting Provider: Dr. Tolliver. Ana Laura
Performing Provider: sho Villanueva/Dr. Kingsley
Reason for Consultation: back pain

Documented by User: Nilton Kingsley MD 01/22/25 15:36
Consultation - Medical
-
Referring Provider:�Ana Laura Montano
Chief Complaint:�acute on chronic back Pain
�
History of Present Illness:�74-year-old female with past medical history of HFpEF, type 2 diabetes, hypertension, hypercholesterolemia presents to the ER for evaluation of back pain. She has a history of chronic back pain however recently has
gotten worse in her mid back to the point where she called EMS this morning to be brought to the hospital. She also notes increased urinary frequency, urgency and stress incontinence. In the ED, she noted urinary retention and CT abdomen pelvis
revealed borderline mild right sided hydronephrosis with a 6.5 mm nonobstructing stone within the left kidney. There is also stranding noted in the lower anterior abdomen fixations in the bilateral flanks which could represent edema versus
infection. She was started on a prednisone taper and admitted for further evaluation of acute urinary retention and right-sided hydronephrosis. Dunlap catheter was maintained for drainage until back to baseline. Catheter was removed yesterday.
Patient has been voiding on her own.
Abdomen/pelvis CT without IV or oral contrast 01/20/2025:
There is borderline mild right sided hydronephrosis, however no discrete obstruction is identified. There is a 6.5 mm nonobstructing stone within the left kidney.
The urinary bladder is moderately distended.
There is stranding within the lower anterior abdominal wall which extends to the bilateral flanks which may represent edema, however a superficial infectious process cannot be excluded. Recommend direct visualization.
Colonic diverticulosis
Dunlap catheter placement was done in the ED. UA negative for UTI. Exacerbation of acute on chronic lower back pain thought to be possible due to new urinary retention. Dunlap catheter was maintained for drainage until back to baseline. Catheter
was removed yesterday. Patient has been voiding on her own. Given absence of infection or LEVON - consider Voiding trials prior to discharge vs. outpatient.
Echocardiogram 07/31/2024:
Left ventricle is small in size. Hyperdynamic left ventricular systolic
function. Left ventricular ejection fraction is 70-75% by visual assessment.
Moderate concentric left ventricular hypertrophy.
Normal right ventricular size and function.
No significant valvular pathology within limits of the study quality
Past Medical History:� acute hypoxemic and hypercapnic respiratory failure, Hypercholesterolemia, NIDDM, CHF, HTN, HLD, Obesity 3
Procedure History:�Appendectomy and Tonsillectomy, epidural steroid injections, right cataract surgery-2023,
Family History:�non contributory
�
Social History:�
Functional Level Premorbidly:�Independent with all activities�
Functional Level Currently:�01/22 supervision for transfers and ambulating 80 feet with rolling walker. Therapy suggesting home health. 01/21 dependent for toileting and lower extremity self-care.
�
Tobacco:�Denies�
Alcohol:�Denies�
Drug use:�Denies�
�
Lives with:�Alone
24-hour assistance available:�No
Number of floors:�3rd floor apartment takes elevator
# steps to enter:0�
Driving:�no
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
�
�
Allergies:�
Allergy/AdvReac Type Severity Reaction Status Date / Time
amoxicillin Allergy Nausea / Verified 12/22/24 18:31
Vomiting
erythromycin base (From Allergy slept on Verified 12/22/24 18:31
Erythrocin) BR due to
diarrhea
and
Vomiting
�
Review of Systems:�
Constitutional: (x) abNormal _fatigue but feels much better today.
Eye: (x) Normal _
Ear/Nose/Throat: (x) Normal _
Respiratory: (x) abNormal _hypoxemia on oxygen
Cardiovascular: (x) Normal _
Gastrointestinal: (x) Normal _
Genitourinary: (x) abNormal _urinary retention, hydronephrosis
Musculoskeletal: (x) abNormal _ back pain in the middle much better with new medication
Integumentary: (x) Normal _
Neurologic: (x) Normal _
Psychiatric: (x) Normal _
Endocrine: (x) abNormal _DM
Hematologic/Lymphatic: (x) Normal _
Allergic/Immunologic: (x) Normal _
�
Medications:�
Active Current Visit Medication List
Category Date Time Status
Acetaminophen [Tylenol] Med 01/20/25 17:36 Active
650 mg PO Q4HPRN PRN
Atorvastatin [Lipitor] Med 01/20/25 22:00 Active
10 mg PO HS
Carboxymethylcellulose [Refresh Celluvisc Gel] Med 01/20/25 15:13 Active
2 drops BOTH EYES TIDPRN PRN
Dextrose 50%-Water [Dextrose 50% Syringe] Med 01/20/25 14:54 Active
12.5 grams IV [id number] PRN
Enoxaparin Sodium [Lovenox] Med 01/20/25 18:00 Active
40 mg SC QPM
Glucagon [GlucaGen] Med 01/20/25 14:54 Active
1 mg IM PRN PRN
Insulin Aspart Corrective Low [Novolog Flexpen-Low Med 01/20/25 16:30 Active
Resistance]
See Protocol SC AC
Insulin Aspart Pen [Novolog Flexpen] Med 01/20/25 17:30 Active
16 units SC MEALS
Insulin Glargine Lantus [Lantus] 25 units Med 01/20/25 22:00 Active
Subcutaneous Insulin Syringe [Syringe-Insulin] 0 unit
SC HS
Lidocaine [Lidocaine 4% Patch] Med 01/20/25 09:15 Active
1 patch TOPICAL DAILY
Lisinopril [Zestril] Med 01/21/25 08:00 Active
10 mg PO DAILY
Melatonin Med 01/21/25 22:00 Active
3 mg PO HS
Miconazole Nitrate [Desenex/Mitrazol/Zeasorb] Med 01/21/25 08:00 Active
See Dose Instructions TOPICAL BID
Polyethylene Glycol 3350 [Gavilax] Med 01/21/25 08:00 Active
17 gm PO DAILY
Prednisone [Deltasone] Med 01/21/25 08:00 Active
60 mg PO DAILY
�
Vitals:�
Labs
WBC 11.4 10^3/uL (4.8-10.8) H 01/22/25 07:29
RBC 4.60 10^6/uL (4.20-5.40) 01/22/25 07:
Hgb 12.6 g/dL (12.0-16.0) 01/22/25 07:29
Hct 41.6 % (37.0-47.0) 01/22/25 07:29
MCV 90.4 fL (81.0-99.0) 01/22/25 07:
MCH 27.4 pg (27.0-31.0) 01/22/25 07:29
MCHC 30.3 g/dL (33.0-37.0) L 01/22/25 07:29
RDW 14.4 % (11.5-14.5) 01/22/25 07:29
Plt Count 292 10^3/uL (130-400) 01/22/25 07:29
MPV 8.9 fL (7.4-10.4) 01/22/25 07:29
Abs Immat Gran (auto) 0.0 10^3/uL (0-0.05) 01/20/25 09:15
Absolute Neuts (auto) 5.3 10^3/uL (1.4-6.5) 01/20/25 09:15
Absolute Lymphs (auto) 1.4 10^3/uL (1.2-3.4) 01/20/25 09:15
Absolute Monos (auto) 0.6 10^3/uL (0.1-0.6) 01/20/25 09:15
Absolute Eos (auto) 0.2 10^3/uL (0-0.7) 01/20/25 09:15
Absolute Basos (auto) 0.1 10^3/uL (0-0.2) 01/20/25 09:15
Immature Gran % 0.5 % (0-0.5) 01/20/25 09:15
Neutrophils % 70.0 % (42.2-75.2) 01/20/25 09:15
Lymphocytes % 18.7 % (20.5-51.1) L 01/20/25 09:15
Monocytes % 7.6 % (1.7-9.3) 01/20/25 09:15
Eosinophils % 2.5 % (0-6) 01/20/25 09:15
Basophils % 0.7 % (0-2) 01/20/25 09:15
Nucleated RBC % 0 % 01/20/25 09:15
pH 7.42 (7.35-7.45) 01/20/25 13:18
pCO2 50 mmHg (32-35) H 01/20/25 13:18
pO2 64 mmHg (83-108) L 01/20/25 13:18
HCO3 32.4 mmol/L (21-28) H 01/20/25 13:18
Base Excess 6.7 mmol/L 01/20/25 13:18
ABG O2 Sat (Measured) 92.9 % (94-98) L 01/20/25 13:18
O2 Delivery Level 01/20/25 13:18
Sodium 139 mmol/L (135-145) 01/21/25 07:45
Potassium 4.9 mmol/L (3.5-5.1) 01/21/25 07:45
Chloride 103 mmol/L (98-107) 01/21/25 07:45
Carbon Dioxide 31 mmol/L (22-30) H 01/21/25 07:45
BUN 23 mg/dl (7-17) H 01/21/25 07:45
Creatinine 0.7 mg/dL (0.6-1.0) 01/21/25 07:45
Estimated Creat Clear 66 ml/min 01/21/25 07:45
eGFR > 60.00 01/21/25 07:45
Glucose 109 mg/dl (70-99) H 01/21/25 07:45
Hemoglobin A1c 7.7 % (4.0-5.9) H 01/21/25 07:45
Calcium 9.4 mg/dl (8.4-10.2) 01/21/25 07:45
Total Bilirubin 0.5 mg/dl (0.2-1.3) 01/20/25 09:15
AST 22 U/L (14-36) 01/20/25 09:15
ALT 24 U/L (0-35) 01/20/25 09:15
Alkaline Phosphatase 64 U/L (38-126) 01/20/25 09:15
Total Protein 6.7 g/dl (6.3-8.2) 01/20/25 09:15
Albumin 4.1 g/dl (3.5-5.0) 01/20/25 09:15
Urine Color Perri 01/21/25 20:56
Urine Clarity Clear (Clear) 01/21/25 20:56
Urine pH 5.0 (5.0-9.0) 01/21/25 20:56
Ur Specific Dixon 1.020 (<1.030) 01/21/25 20:56
Urine Ketones Negative (Negative) 01/21/25 20:56
Ur Occult Blood Reflex 1+ (Negative) A 01/21/25 20:56
Urine Nitrite (Reflex) Negative (Negative) 01/21/25 20:56
Urine Bilirubin Negative (Negative) 01/21/25 20:56
Urine Urobilinogen Negative (Neg - 1+) 01/21/25 20:56
Leukocyte Esterase Rfl 1+ (Negative) A 01/21/25 20:56
Urine RBC 16-20 /HPF (0-2) A 01/21/25 20:56
Urine WBC (Reflex) 16-20 /HPF (0-5) A 01/21/25 20:56
Ur Squamous Epith Cells 26-30 /LPF (Few) 01/21/25 20:56
Urine Bacteria (Reflex) Few (Negative) A 01/21/25 20:56
Urine Glucose 4+ (Negative) A 01/21/25 20:56
Urine Albumin (Reflex) Negative (Neg - Trace) 01/21/25 20:56
POC Glucose 118 mg/dl (70-99) H 01/22/25 07:34
�
Physical Exam:�
General Appearance/Observation: Well-developed, well-nourished obese female in no apparent distress.�seated in chair with cannula
Pain/Comfort Assessment: Middle the back at times
Mood/Affect: Appropriate�
�
Integumentary/Operative Site:
�� Pressure Ulcer Evaluation: absent over heels.�
�
Eyes: Conjunctiva/Lids: normal���� Pupils: pupils equal round
Ears/Nose/Throat: oral mucosa moist,� throat clear.������������ Lips/Teeth/Gums: normal�
Cardiovascular: Heart: regular, no murmur�
Pulses: dorsalis pedis 2+ bilaterally�
Respiratory: Respiratory Effort/Chest Expansion: normal������� Auscultation: rales bilaterally�
Gastrointestinal: mild tenderness left abdomen , no distension, normal abdominal bowel sounds
Genitourinary: No Dunlap�
Extremities:�Edema: Moderate bilateral nonpitting lower extremity Cyanosis: None�Trophic�changes: Yes bilateral shins
-Slight tenderness over the middle of the spine, has lidocaine patch over the area. No paraspinal muscle spasm or tenderness.
�
Neurology Exam:
Orientation: Alert, Oriented to self, Time, Place�
Memory: Intact for immediate medical concerns
Comprehension: Intact
Two step command: Intact
Naming: Intact
Cranial Nerves:
�� CNII:�Pupillary light reflex: Intact����Visual Field: Intact
�� CN III, IV, : Extraocular muscles: Intact�
�� CN V:�Facial Sensation�at�Forehead: Intact,�Maxilla: Intact,�Mandible: Intact
�� CN VII:�Facial movement: Symmetric
�� CN VIII:�Hearing: Normal
�� CN IX/X:�Speech & swallow: Normal,�Position of Uvula: Midline
�� CN XI:�Shoulder shrug: Symmetric
�� CN XII:�Tongue protrusion: Midline
Sensory:
�� Light touch: Intact in bilateral upper and lower extremities
��
�
Reflexes:
�� Biceps: 2+ bilaterally
�� Brachioradialis: 2+ bilaterally
�� Triceps: 2+ bilaterally
�� Patellar: 2+ bilaterally
�� Achilles: 2+ bilaterally
�� Babinski: Down going bilaterally
�� Clonus: None
�� Dora: Negative bilaterally�
Cerebellar: Dysmetria/Ataxia: NT
Musculoskeletal: Motor: (Manual muscle scale 0-5)�
Muscle SA EF WE EE FF FA HF KE DF EHL PF
Right� 5 5 5 5 5 4 5 4 4 4
Left 5 5 5 5 5 4 5 4 4 4
�
Tone: Normal in all extremities�
Range of Motion: Passively within normal limits in all extremities�
�
Lab Results:
Labs
WBC 11.4 10^3/uL (4.8-10.8) H 01/22/25 07:
RBC 4.60 10^6/uL (4.20-5.40) 01/22/25 07:29
Hgb 12.6 g/dL (12.0-16.0) 01/22/25 07:
Hct 41.6 % (37.0-47.0) 01/22/25 07:
MCV 90.4 fL (81.0-99.0) 01/22/25 07:
MCH 27.4 pg (27.0-31.0) 01/22/25 07:
MCHC 30.3 g/dL (33.0-37.0) L 01/22/25 07:
RDW 14.4 % (11.5-14.5) 01/22/25 07:
Plt Count 292 10^3/uL (130-400) 01/22/25 07:29
MPV 8.9 fL (7.4-10.4) 01/22/25 07:29
Abs Immat Gran (auto) 0.0 10^3/uL (0-0.05) 01/20/25 09:15
Absolute Neuts (auto) 5.3 10^3/uL (1.4-6.5) 01/20/25 09:15
Absolute Lymphs (auto) 1.4 10^3/uL (1.2-3.4) 01/20/25 09:15
Absolute Monos (auto) 0.6 10^3/uL (0.1-0.6) 01/20/25 09:15
Absolute Eos (auto) 0.2 10^3/uL (0-0.7) 01/20/25 09:15
Absolute Basos (auto) 0.1 10^3/uL (0-0.2) 01/20/25 09:15
Immature Gran % 0.5 % (0-0.5) 01/20/25 09:15
Neutrophils % 70.0 % (42.2-75.2) 01/20/25 09:15
Lymphocytes % 18.7 % (20.5-51.1) L 01/20/25 09:15
Monocytes % 7.6 % (1.7-9.3) 01/20/25 09:15
Eosinophils % 2.5 % (0-6) 01/20/25 09:15
Basophils % 0.7 % (0-2) 01/20/25 09:15
Nucleated RBC % 0 % 01/20/25 09:15
pH 7.42 (7.35-7.45) 01/20/25 13:18
pCO2 50 mmHg (32-35) H 01/20/25 13:18
pO2 64 mmHg (83-108) L 01/20/25 13:18
HCO3 32.4 mmol/L (21-28) H 01/20/25 13:18
Base Excess 6.7 mmol/L 01/20/25 13:18
ABG O2 Sat (Measured) 92.9 % (94-98) L 01/20/25 13:18
O2 Delivery Level 01/20/25 13:18
Sodium 139 mmol/L (135-145) 01/21/25 07:45
Potassium 4.9 mmol/L (3.5-5.1) 01/21/25 07:45
Chloride 103 mmol/L (98-107) 01/21/25 07:45
Carbon Dioxide 31 mmol/L (22-30) H 01/21/25 07:45
BUN 23 mg/dl (7-17) H 01/21/25 07:45
Creatinine 0.7 mg/dL (0.6-1.0) 01/21/25 07:45
Estimated Creat Clear 66 ml/min 01/21/25 07:45
eGFR > 60.00 01/21/25 07:45
Glucose 109 mg/dl (70-99) H 01/21/25 07:45
Hemoglobin A1c 7.7 % (4.0-5.9) H 01/21/25 07:45
Calcium 9.4 mg/dl (8.4-10.2) 01/21/25 07:45
Total Bilirubin 0.5 mg/dl (0.2-1.3) 01/20/25 09:15
AST 22 U/L (14-36) 01/20/25 09:15
ALT 24 U/L (0-35) 01/20/25 09:15
Alkaline Phosphatase 64 U/L (38-126) 01/20/25 09:15
Total Protein 6.7 g/dl (6.3-8.2) 01/20/25 09:15
Albumin 4.1 g/dl (3.5-5.0) 01/20/25 09:15
Urine Color Perri 01/21/25 20:56
Urine Clarity Clear (Clear) 01/21/25 20:56
Urine pH 5.0 (5.0-9.0) 01/21/25 20:56
Ur Specific Dixon 1.020 (<1.030) 01/21/25 20:56
Urine Ketones Negative (Negative) 01/21/25 20:56
Ur Occult Blood Reflex 1+ (Negative) A 01/21/25 20:56
Urine Nitrite (Reflex) Negative (Negative) 01/21/25 20:56
Urine Bilirubin Negative (Negative) 01/21/25 20:56
Urine Urobilinogen Negative (Neg - 1+) 01/21/25 20:56
Leukocyte Esterase Rfl 1+ (Negative) A 01/21/25 20:56
Urine RBC 16-20 /HPF (0-2) A 01/21/25 20:56
Urine WBC (Reflex) 16-20 /HPF (0-5) A 01/21/25 20:56
Ur Squamous Epith Cells 26-30 /LPF (Few) 01/21/25 20:56
Urine Bacteria (Reflex) Few (Negative) A 01/21/25 20:56
Urine Glucose 4+ (Negative) A 01/21/25 20:56
Urine Albumin (Reflex) Negative (Neg - Trace) 01/21/25 20:56
POC Glucose 118 mg/dl (70-99) H 01/22/25 07:34
�
Diagnostic Results:�as per HPI�
�There is borderline mild right sided hydronephrosis, however no discrete obstruction is identified.
There is a 6.5 mm nonobstructing stone within the left kidney.
The urinary bladder is moderately distended.
There is stranding within the lower anterior abdominal wall which extends to the bilateral flanks which may represent edema, however a superficial infectious process cannot be excluded.
Recommend direct visualization.
Colonic diverticulosis.
07/31/24 TTE
Left ventricle is small in size. Hyperdynamic left ventricular systolic
function. Left ventricular ejection fraction is 70-75% by visual assessment.
Moderate concentric left ventricular hypertrophy.
Normal right ventricular size and function.
No significant valvular pathology within limits of the study quality
Compared to prior study dated 05/28/2024, there is no significant change
Assessment:
74-year-old female with past medical history of HFpEF, type 2 diabetes, hypertension, hypercholesterolemia presented with acute on chronic low back pain found to have urinary retention, acute on chronic hypoxemia on oxygen and associated
ambulatory and ADLs dysfunction.
�
Plan�
PM&R�PT/OT to increase independence with ADLs, improve balance, coordination, endurance, strength, mobility, community reintegration, decreased burden of care on others and family education.�
Acute on chronic back pain: due to arthritis vs hydronephrosis, nonobstructing stone within the left kidney
-- Prednisone 60 mg taper, lidocaine patch
Acute hypoxemic respiratory failure: ABG revealed chronic hypoxemic and hypercapnic respiratory failure. Patient on chronic O2 via cannula
HTN: metoprolol and lisinopril
HLD: Atorvastatin 10 mg at bedtime
Chronic HFpEF :without acute exacerbation, lisinopril, furosemide 40 mg daily
IDDM II: Hga1c 7.7 Accu-Cheks, insulin sliding scale, Glargine 25, Aspart 16 .�
ANDREINA: CPAP and and baseline oxygen 2 to 3 L�
Leukocytosis: Most likely reactive due to steroids
Psych: Psychology consult.� Monitor mood, adjust medications as needed.�
Skin: monitor for pressure sores/rashes/lesions.�
Pain: acetaminophen as needed.� Lidocaine patch
Bowel: Colace and Senna, PRN bisacodyl.�
Acute urinary retention: secondary to bladder outlet obstruction versus neurogenic bladder consistent with hydronephrosis on imaging. Dunlap removed 01/21. Some burning. Time void, PVRs, PRN straight cath.� Pyridium 200 mg 3 times daily as needed
GI Prophylaxis: Pantoprazole�
DVT Prophylaxis: mechanical and lovenox
Pulmonary: Incentive spirometry�
Obesity 3: Continue to academic counselor patient about diet adjustments to control obesity. Body habitus and increased force to move body and extremities causes further difficulty with functional tasks.�
Safety: Continue to reinforce assistance with all transfers.�
Code Status:� Full code �
Dispo�(date/plan/equipment needs): Home with family care.� Social history reviewed.�
Functional and Medical Goals:�Modified Independent with ADL�s, ambulation, transfers�
�
Discharge Destination:�Patient with ambulatory dysfunction due to acute on chronic lower back pain, acute on chronic hypoxemia and urinary retention would benefit from continued PT/OT at acute inpatient or SNF despite discussion of benefits and
risks. Patient adamantly prefers to continue at home therapy as she has been getting both therapies at home from a prior hospitalization. She does not wish to be in the hospital for Thanksgiving and desires to be with a large group of people in her
development for meals.
Attending Statement:
I saw and examined the patient today. Reviewed care plan with patient, therapy, nursing, and physician phys assistant. I agree with the above subjective and physical exam, and plan as documented by TD Villanueva with adjustments made as necessary. A
total of 60 minutes were spent with the patient preparing for the evaluation, obtaining history, performing examination and evaluation, counseling, data review, case management, care coordination, order entry technician, and EMR documentation. Patient adamant
about going home. Has slight back pain and feeling much better today. Did much better in physical therapy and physical therapy suggesting home with home health aide.
Thank you for allowing me to care for your patient. Please contact me with any questions or concerns.
[2025-01-22 08:46] LABS: Carbon Dioxide 32 mmol/L (22-30)
--- NOTE | 2025-01-22 09:54 | CM ---
Addendum entered by Elin Jennings 01/22/25 14:57:
Pt's O2 sat was revaluated this afternoon with ambulation. Pt now needs continuously O2 at 2LPM updated referral sent to Kerry at [facility]
Pt will be going home at 5pm via ambulance to her home
Pt is discharged home with [facility] and continuous O2 at 2LPM n/c
[facility] for O2
phone: [phone]

Original Note:
Met with pt bedside. ON Room air now with pox sat @ 93%. Possible DC today. Pt refused SNF again this morning. Pt states she is independent with ambulation with RW and is able to get in and out of a car. Will discuss mobility with nurse today. If pt
is discharged today she has a friend that will pick her up
Plan: Home with VN with [facility].
[2025-01-22 11:15] VITALS: BP 145/93
[2025-01-22 12:49] LABS: Glucose - Point of Care 148 mg/dl (70-99)
[2025-01-22] MEDS: NOVOLOG FLEXPEN 16 UNITS SC (13:32)
--- NOTE | 2025-01-22 14:17 | W.DCSUMMARY ---
Addendum entered and electronically signed by Angela Nugent MD, Resident 01/24/25 12:06:
Urine culture revealed E.coli, although 26-30 squamous epithelial cells in culture. I called the patient and she states she is feeling well and denies any burning with urination. She does state she wants the antibiotic just in case. Sent cephalexin
500 BID for 5 days to her pharmacy as urine culture is hernández-sensitive.
Addendum entered and electronically signed by Ana Laura Tolliver MD 01/22/25 15:42:
Attending�addendum:
I saw and evaluated the patient independently. I reviewed and discussed the resident�s note and agree with findings and plan as documented in the resident�s note.� patient seen and examined at bedside, denies any chest pain or shortness of breath,
no abdominal pain, no nausea, no vomiting, no diarrhea or constipation.
Dunlap removed and patient able to void, dysuria improved.
Physical recommending rehab but patient wants to go home.
Physical�exam:
GENERAL : Patient is awake, alert, oriented x3
HEENT: Nonicteric sclerae, PERRLA, EOMI. Oropharynx clear. Moist mucous membranes. Conjunctivae appear well perfused.
CHEST: Chest wall is nontender.
HEART: Regular rate and rhythm without murmurs.
LUNGS: rales bilaterally.
ABDOMEN: Soft, positive bowel sounds, nontender, no organomegaly.
RECTAL: Deferred.
MUSCLES/EXTREMITIES: No abnormal range of motion, no swelling.SKIN: No rash, no excessive bruising, petechiae, or purpura.
NEUROLOGIC: Cranial nerves II-XII intact without motor/sensory deficit.
�
Assessment/plan:
Back pain.
Continue prednisone.
PT/OT, recommending rehab, patient wants to go home.
Urinary retention
Dunlap removed, passed voiding trial
Acute hypoxemic respiratory failure.
Secondary to obstructive sleep apnea/chronic diastolic CHF
Dropped oxygen to low 90s
Patient refused Lasix
Nocturnal pulse ox done, dropped to 89% > 6 minutes.
Exertion pulse oximetry to be done today
Chronic diastolic CHF.
Patient refusing lasix
CODE STATUS: Full code
DVT prophylaxis: Lovenox
Diet: DM diet
Disposition: DC home.
Total time spent on today's encounter was 51 minutes which included time spent in counseling the patient/family regarding diagnosis and treatment plan as listed above, goals of care, and symptom management. Case was discussed with nursing staff,
specialists, and care coordinators/case management. All labs and imaging personally reviewed by me. Remainder the time spent in detailed review of previous records, lab data, imaging, and other medical provider documentation.
Original Note:
Documented by User: Angela Nugent MD, Resident 01/22/25 14:43
Discharge Summary
Discharge Data
Date of Admission: 01/21/25
Date of Discharge: 01/22/25
-
Pending Results: Yes
Additional Pending Results:
urine culture
Hospital Course
Primary diagnosis:
Back pain
Urinary retention
Acute hypoxemic respiratory failure
Secondary diagnosis:
DM2
HFpEF
HTN
HLD
Chronic ambulatory dysfunction
Morbid obesity
Hospital course:
74-year-old female with past medical history of HFpEF, type 2 diabetes, hypertension, hypercholesterolemia presents to the ER for evaluation of back pain. She has a history of chronic back pain however recently has gotten worse in her mid back to
the point where she called EMS this morning to be brought to the hospital. She also notes increased urinary frequency, urgency and stress incontinence. In the ED, she noted urinary retention and CT abdomen pelvis revealed borderline mild right
sided hydronephrosis with a 6.5 mm nonobstructing stone within the left kidney. There is also stranding noted in the lower anterior abdomen fixations in the bilateral flanks which could represent edema versus infection. She was started on a
prednisone taper and was admitted for further evaluation of acute urinary retention and right-sided hydronephrosis. UA culture revealed contamination and analysis not convincing for UTI. Urology saw her and recommended trial of void which she
passed. Her back pain felt much better after starting the prednisone taper. While in the hospital, she did require 2-3L O2 due to dyspnea on exertion not for hypoxia. She did have a nocturnal O2 evaluation where her O2 < 89% for greater than 6
minutes so she will be discharged with home O2 to use at night. In addition, she had an exercise O2 assessment which she failed. Respiratory recommended 2 L O2 with ambulation. She is supposed to be on outpatient Lasix but adamantly refuses to take
it because it makes her urinate too much. She refused in here in the hospital as well. She did endorse some burning with urination after the Dunlap cath was inserted so a repeat UA was done and Pyridium provided as we suspected mechanical irritation
rather than true UTI as prior culture negative.
Today, patient is clinically stable for discharge with significant improvement over the course of her stay. She is being discharged with a prednisone taper (40mg x 1 day, 20mg x 2 days, 10mg x2 days) for her back pain and Pyridium for her sensation
of burning with urination likely mechanical as it started after the cath insertion. She is also being sent with a script for Lasix, although she refuses to take it. She will also be sent with home health and home O2 to use at night along with
ambulation. If the urine culture reveals infection, we will call in an antibiotic to treat.
Imaging:
Ab/pelvis CT without IV or oral contrast:
There is borderline mild right sided hydronephrosis, however no discrete obstruction is identified. There is a 6.5 mm nonobstructing stone within the left kidney.
The urinary bladder is moderately distended.
There is stranding within the lower anterior abdominal wall which extends to the bilateral flanks which may represent edema, however a superficial infectious process cannot be excluded. Recommend direct visualization.
Colonic diverticulosis.
Discharge Plan
-
Patient Disposition: Home with Home Care
Discharge Diagnosis/Procedures: Back pain, urinary retention, acute hypoxemic respiratory failure, Chronic heart failure with preserved ejection fraction.
Condition: Fair
Diet: Low Cholesterol and 2 Gram Sodium
Activity: With assistance
Driving Restrictions: As prior to admission
Bathing Restrictions: None
Other Services: VN, PT and OT
Referrals:
Geri Ramirez MD [Family Provider, Internal Medicine] - in one week
Prescriptions:
New
furosemide 40 mg Tablet
40 mg PO DAILY Qty: 30 0RF
phenazopyridine 200 mg Tablet
200 mg PO TIDPRN PRN (Reason: burning with urination) Qty: 9 0RF
prednisone 10 mg Tablet
See Rx Instructions .ROUTE .COMPLEX Qty: 10 0RF
Rx Instructions:
Take By Mouth:
40 mg daily x1 days, 20 mg daily x2 days,
10 mg daily x2 days
Continued
simvastatin 20 MG tablet
20 mg PO HS
insulin glargine [Lantus Solostar U-100 Insulin] 100 unit/mL (3 mL) Insulin Pen
25 unit SC HS
insulin aspart U-100 [Novolog FlexPen U-100 Insulin] 100 unit/mL (3 mL) Insulin Pen
16 unit SC MEALS
cholecalciferol (vitamin D3) [Vitamin D3] 25 mcg (1,000 unit) Capsule
50 mcg PO DAILY
polyethylene glycol 3350 [Miralax] 17 gram/dose Powder
17 g PO DAILY
fluticasone propionate 50 mcg/actuation Eldena,Suspension
2 spray INTRANASAL BIDPRN PRN (Reason: allergies)
carboxymethylcellulose sodium [Refresh Plus] 0.5 % Dropperette
2 drp BOTH EYES TIDPRN PRN (Reason: dry eyes)
lisinopril 10 mg Tablet
10 mg PO DAILY 30 Days Qty: 30 0RF
acetaminophen 650 mg Tablet Extended Release
1,300 mg PO TID
therapeutic multivitamin Tablet
2 tab PO DAILY
Discharge Orders:
Discharge Patient (As Directed); Ordered 01/22/25
Ordered By: Angela Nugent
Discharge Date and Time
Print Language: SINGAPOREAN

Documented by User: Ana Laura Tolliver MD 01/22/25 15:41
Discharge Summary
Discharge Data
Date of Admission: 01/21/25
Date of Discharge: 01/22/25
Discharge Plan
-
Patient Disposition: Home with Home Care
Discharge Diagnosis/Procedures: Back pain, urinary retention, acute hypoxemic respiratory failure, Chronic heart failure with preserved ejection fraction.
Condition: Fair
Diet: Low Cholesterol and 2 Gram Sodium
Activity: With assistance
Driving Restrictions: As prior to admission
Bathing Restrictions: None
Other Services: VN, PT and OT
Referrals:
Geri Ramirez MD [Family Provider, Internal Medicine] - in one week
Prescriptions:
New
furosemide 40 mg Tablet
40 mg PO DAILY Qty: 30 0RF
phenazopyridine 200 mg Tablet
200 mg PO TIDPRN PRN (Reason: burning with urination) Qty: 9 0RF
prednisone 10 mg Tablet
See Rx Instructions .ROUTE .COMPLEX Qty: 10 0RF
Rx Instructions:
Take By Mouth:
40 mg daily x1 days, 20 mg daily x2 days,
10 mg daily x2 days
Continued
simvastatin 20 MG tablet
20 mg PO HS
insulin glargine [Lantus Solostar U-100 Insulin] 100 unit/mL (3 mL) Insulin Pen
25 unit SC HS
insulin aspart U-100 [Novolog FlexPen U-100 Insulin] 100 unit/mL (3 mL) Insulin Pen
16 unit SC MEALS
cholecalciferol (vitamin D3) [Vitamin D3] 25 mcg (1,000 unit) Capsule
50 mcg PO DAILY
polyethylene glycol 3350 [Miralax] 17 gram/dose Powder
17 g PO DAILY
fluticasone propionate 50 mcg/actuation Eldena,Suspension
2 spray INTRANASAL BIDPRN PRN (Reason: allergies)
carboxymethylcellulose sodium [Refresh Plus] 0.5 % Dropperette
2 drp BOTH EYES TIDPRN PRN (Reason: dry eyes)
lisinopril 10 mg Tablet
10 mg PO DAILY 30 Days Qty: 30 0RF
acetaminophen 650 mg Tablet Extended Release
1,300 mg PO TID
therapeutic multivitamin Tablet
2 tab PO DAILY
Discharge Orders:
Discharge Patient (As Directed); Ordered 01/22/25
Ordered By: Angela Nugent
Discharge Date and Time
Print Language: [place]AP[place]
[2025-01-22 15:15] VITALS: BP 153/88
== END 2025-01-22 17:23 | disposition home health service (06) | DRG 693 ==
LOC: 4 EAST ACU 17:52
PROVIDERS: Nurse Practitioner Family; ADMITTING PHYSICIAN Internal Medicine; ATTENDING PHYSICIAN General Practice; CONSULT PHYSICIAN Physical Medicine & Rehabilitation; CONSULT PHYSICIAN Surgery; EMERGENCY PHYSICIAN Emergency Medicine; FAMILY PHYSICIAN Internal Medicine
DX: N13.30 Unspecified hydronephrosis (principal); J96.21 Acute and chronic respiratory failure with hypoxia; I50.32 Chronic diastolic (congestive) heart failure; Z68.41 Body mass index [BMI] 40.0-44.9, adult; N39.3 Stress incontinence (female) (male); K57.30 Diverticulosis of large intestine without perforation or abscess without bleeding; D72.829 Elevated white blood cell count, unspecified; T38.0X5A Adverse effect of glucocorticoids and synthetic analogues, initial encounter; I11.0 Hypertensive heart disease with heart failure; E66.813 Obesity, class 3; E11.9 Type 2 diabetes mellitus without complications; G89.29 Other chronic pain; Z98.41 Cataract extraction status, right eye; Z88.0 Allergy status to penicillin; Z79.899 Other long term (current) drug therapy; Z79.4 Long term (current) use of insulin; Z90.49 Acquired absence of other specified parts of digestive tract; Z99.81 Dependence on supplemental oxygen; E78.00 Pure hypercholesterolemia, unspecified
CPT/HCPCS: 74176; 80048; 80053; 81003; 81015; 82805; 82962; 83036; 85025; 85027; 87077; 87086; 87186; 94762; 96374; 96375; 97116; 97163; 97167; 99285